=== PATIENT | female | born 1945 | race Caucasian/White ===

== ENCOUNTER 2025-03-22 17:10 | Emergency (ER) | payer MEDICARE, SELFPAY ==
[2025-03-22] VITALS (32 sets, daily range): BP systolic 110–152; BP diastolic 62–117; PULSE 80–145; RESP 12–31; TEMP 36.8; O2SAT 91–96
--- NOTE | ~2025-03-22 | XR_ITS ---
CHEST RADIOGRAPH CLINICAL HISTORY: shortness of breath . COMPARISON: None available TECHNIQUE: Single portable view of the chest. FINDINGS The cardiomediastinal silhouette is enlarged. The lungs are clear. IMPRESSION: No focal infiltrate or effusion. Reviewed, dictated and finalized at location A.
--- NOTE | ~2025-03-22 | CT_ITS ---
History: Headache and left upper extremity paresthesias PROCEDURE: CT head without contrast. COMPARISON: None TECHNIQUE: Axial imaging of the head performed from the skull base to the vertex without IV contrast. Sagittal a nd coronal reformations obtained. DLP: 605 mGy-cm FINDINGS: The ventricles are enlarged. The dilatation of the ventricles is proportional to the degree of sulcal prominence, not uncommon in the senescent brain. Decreased attenuation is identified within the periventricular white matter, likely secondary to micr ovascular ischemic disease, in a patient of this age. There is no mass, mass effect or midline shift. There is no abnormal extra-axial fluid collection or intracranial hemorrhage. Visualized paranasal sinuses are clear. The mastoid air cells are well aerated. No acute displaced fractures within the overlying cranium. Impression: No acute intracranial hemorrhage or suspicious mass effect. Reviewed, dictated and finalized at location A. Impression: No acute intracranial hemorrhage or suspicious mass effect.
--- NOTE | 2025-03-22 17:22 | ECG_ITS ---
Test Date: 2025-03-22 17:26:24 Measurements Intervals [place] Rate: 130 P: 0 ME: 0 QRS: 53 QRSD: 94 T: 17 QT: 302 QTc: 445 Interpretive Statements ATRIAL FIBRILLATION WITH RAPID VENTRICULAR RESPONSE INCOMPLETE RIGHT BUNDLE BRANCH BLOCK MINIMAL Q WAVES- ANTEROLATERAL LEADS BASELINE ARTIFACT- III, V1-V2 ABNORMAL ECG No previous ECG available for comparison Electronically Signed On 03-22-2025 20:26:07 CDT by Hermilo Catalan D.O.
--- NOTE | 2025-03-22 17:46 | ED_ITS ---
HPI - General Adult General Chief complaint: Weakness Stated complaint: arm weakness Time Seen by Provider: 03/22/25 17:46 Source: patient Mode of arrival: ambulatory Limitations: no limitations History of Present Illness HPI narrative: 80-year-old female With a history of hypertension and dyslipidemia presents to the ED with a 1 day history of -- right forearm and hand pain with weakness which started after she moved her yd. no focal new motor or sensory deficit noted. -- transient slurred speech yesterday. this was not noted today. -- On presentation to the ED the patient was noted to have atrial fibrillation with a ventricular rate of 138 and a blood pressure of 145/118. No chest pain or shortness of breath no lightheadedness or dizziness. patient had right arm weakness/ numbness and difficulty writing. This happen yesterday evening with spontaneous resolution. Onset (ago): day(s) ( One day) Location: right and upper extremity Radiation: non-radiation Severity: mild Pain Consistency: constant Relieving factors: none Exacerbating factors: none Associated symptoms: denies other symptoms, weakness and other ( Right arm weakness / numbness with slurred speech) Treatments prior to arrival: none Related Data Allergies Allergy/AdvReac Type Severity Reaction Status Date / Time Penicillins Allergy Mild Rash Verified 03/22/25 17:25 Review of Systems 2 Review of Systems: All systems reviewed & are unremarkable except as noted in HPI and below Constitutional: Constitutional: Reports as per HPI and Reports no additional constitutional complaints Eyes: Eyes: Reports as per HPI and Reports no additional eye complaints ENT: Reports system reviewed and no additional complaints, except as documented and Reports as per HPI Cardiovascular: Cardiovascular: Reports as per HPI and Reports no additional cardiovascular complaints Respiratory: Respiratory: Reports as per HPI and Reports no additional respiratory complaints Gastrointestinal: Gastrointestinal: Reports as per HPI and Reports no additional gastrointestinal complaints Genitourinary: Genitourinary: Reports no additional female genitourinary complaints and Reports as per HPI Musculoskeletal: Musculoskeletal: Reports no additional musculoskeletal complaints and Reports as per HPI Comments: right forearm and hand pain Integumentary/Breasts: Skin/Breast: Reports system reviewed and no additional complaints, except as docu and Reports as per HPI Neurologic: Reports system reviewed and no additional complaints, except as documented and Reports as per HPI Psychiatric: Psychiatric: Reports no additional psychiatric complaints and Reports as per HPI Endocrine: Endocrine: Reports no additional endocrine complaints and Reports as per HPI Hematologic/Lymphatic: Hematologic/Lymphatic: Reports no additional hematologic/lymphatic complaints and Reports as per HPI Allergic/Immunologic: Allergic/Immunologic: Reports no additional allergic/immunologic complaints and Reports as per HPI [facility] Past Medical History Medical History (Updated 03/22/25 @ 19:54 by Manas García MD) Dyslipidemia Hypertension Social History Social History (Updated 03/22/25 @ 18:03 by Manas García MD) Social History: nonsmoker, nonalcoholic no drug use. Exam 2 Narrative: blood pressure is 152/98 with a heart rate of 134. Oxygen saturation of 95% on room Const: General: no acute distress Nutritional Appearance: well nourished Orientation/consciousness: patient oriented x3 Limitations: no limitations HENMT: Head: normal to inspection Ears: external ears normal F nelly/Nose/Sinus: Normal external nose present Face and sinus: normal facial exam Mouth: Yes Normal oral and palatal mucosa present Throat: posterior oropharynx normal Eyes: Conjunctivae: conjunctivae normal Pupils: Equal, round and reactive pupils present EOM: EOMs intact bilaterally Direct Ophthalmoscopy: no photophobia Neck: Neck: normal visual inspection, no lymphadenopathy and no meningeal signs Chest: Chest palpation & inspection: normal inspection of the chest Resp: Effort & Inspection: normal respiratory effort Auscultation: clear to auscultation bilaterally Cardio: Rate: tachycardic Rhythm: abnormal rhythm Other: Irregularly irregular rhythm with a heart rate of 140. No gallop or murmur apprecia GI: Auscultation: normal bowel sounds Other: No tenderness/ rigidity /rebound. : General: Yes no CVA tenderness Back/Spine/Pelvis: Back: no CVA tenderness Skin: General skin exam: normal color Other: Erythematous rash on her upper back Neuro: General: patient oriented x3, moves all extremities, no meningeal signs, no focal motor deficits and CN's II-XI intact bilaterally Cranial nerves: Yes Nystagmus not present Speech: normal speech Gait exam (Neuro): Normal gait present Other: NIHSS 0 Extrem: General: normal to inspection Psych: Mental Status: mental status grossly normal Affect: normal affect Attitude: cooperative Course Course Emergency Course: non-STEMI -- patient received aspirin and was started on heparin AFib with rapid ventricular rate- received 5 mg of metoprolol decrease in blood pressure to 90/44. Patient continues to have a rapid ventricular rate for which the patient has been started on amiodarone transient episode of slurred speech and right hand pain/ weakness which resolved spontaneously-- TIA Vital Signs Vital signs: Vital Signs Temperature 36.8 C 03/22/25 17:10 Pulse Rate 134 H 03/22/25 17:10 Respiratory Rate 16 03/22/25 17:10 Blood Pressure 152/98 H 03/22/25 17:10 Pulse Oximetry 95 03/22/25 17:10 Oxygen Delivery Room Air 03/22/25 17:10 Temperature 36.8 C 03/22/25 17:10 Pulse Rate 83 03/22/25 20:16 Respiratory Rate 22 H 03/22/25 20:16 Blood Pressure 122/62 03/22/25 20:16 Pulse Oximetry 96 03/22/25 19:15 Oxygen Delivery Room Air 03/22/25 19:15 Medical Decision Making MDM Narrative Medical decision making narrative: non-STEMI AFib with rapid ventricular rate CVA/TIA Differential Diagnosis Differential Diagnosis: VA, CVA Medical Records Medical records reviewed: Yes I reviewed the external patient's medical records. Vital Signs Vital Signs: Vital Signs Temperature 36.8 C 03/22/25 17:10 Pulse Rate 134 H 03/22/25 17:10 Respiratory Rate 16 03/22/25 17:10 Blood Pressure 152/98 H 03/22/25 17:10 Pulse Oximetry 95 03/22/25 17:10 Oxygen Delivery Room Air 03/22/25 17:10 Temperature 36.8 C 03/22/25 17:10 Pulse Rate 83 03/22/25 20:16 Respiratory Rate 22 H 03/22/25 20:16 Blood Pressure 122/62 03/22/25 20:16 Pulse Oximetry 96 03/22/25 19:15 Oxygen Delivery Room Air 03/22/25 19:15 Lab Data 03/22/25 18:18 03/22/25 18:18 Labs: Lab Results 03/22/25 03/22/25 Range/Units 18:18 19:09 WBC 10.9 H (4.8-10.8) K/mm3 RBC 4.43 (4.20-5.40) M/mm3 Hgb 13.4 (11.7-13.8) g/dL Hct 40.9 (35.0-42.0) % MCV 92.3 (78.0-102.0) fL MCH 30.2 (27.0-31.0) pg MCHC 32.8 (32-36) g/dL RDW 13.3 (11.6-14.4) % Plt Count 296 (150-420) K/mm3 MPV 10.5 (9.2-11.8) fl Immature Gran % (Auto) 0.5 H (0.0-0.0) % Neut % (Auto) 69.7 (50.0-70.0) % Lymph % (Auto) 17.3 L (18.0-42.0) % [place] % (Auto) 9.5 (2.0-11.0) % Eos % (Auto) 2.5 (1.0-6.0) % Baso % (Auto) 0.5 (0.0-1.0) % Lymph # (Auto) 1.89 (1.10-4.50) K/mm3 [place] # (Auto) 1.04 H (0.10-0.90) K/mm3 Eos # (Auto) 0.27 (0.02-0.50) K/mm3 Baso # (Auto) 0.06 (0.00-0.10) K/mm3 Abs Immat Gran (auto) 0.05 H (0.00-0.00) K/mm3 Absolute Neuts (auto) 7.63 H (1.70-7.20) K/mm3 Absolute Nucleated RBC 0.00 (0.00-0.00) K/mm3 Nucleated RBC % 0.0 (0-0.0) % PT 10.9 (9.50-12.1) Seconds INR 1.0 APTT 28.6 (23.9-30.70) Sec Sodium 140 (136-145) mmol/L Potassium 3.5 (3.5-5.1) mmol/L Chloride 102 (98-108) mmol/L Carbon Dioxide 28 (21-32) mmol/L Anion Gap 10 (4-12) mmol/L BUN 22 H (7-18) mg/dL Creatinine 0.85 (0.55-1.02) mg/dL Estim Creat Clear Calc 39 ml/min Estimated GFR > 60 (59 - ) Glucose 99 (70-99) mg/dL Calculated Osmolality 293 (285-295) mOsm/kg Lactic Acid 1.0 (0.4-2.0) mmol/L Calcium 9.2 (8.5-10.1) mg/dL Total Bilirubin 0.8 (0.00-1.00) mg/dL AST 47 H (15-37) U/L ALT 60 H (14-59) U/L Alkaline Phosphatase 120 H (46-116) U/L Troponin I 3101.3 H* (0.00-60.4) ng/L NT-Pro-B Natriuret Pep 3187 H (0-450) pg/mL Total Protein 7.5 (6.4-8.2) g/dL Albumin 3.3 L (3.4-5.0) g/dL Lipase 21 (16-77) U/L TSH 0.80 (0.36-3.74) uIU/mL Urine Color Light yellow (Yellow) Urine Appearance Clear (Clear) Urine pH 5.5 (5.0-8.0) Ur Specific [place] 1.010 (1.010-1.020) Urine Protein Negative (Negative) Urine Glucose (UA) Negative (Negative) Urine Ketones 1+ H (Negative) Ur Blood (Man) Trace-intact H (Negative) Urine Nitrate Negative (Negative) Urine Bilirubin Negative (Negative) Urine Urobilinogen 0.2 (0.2-1.0) mg/dL Leukocyte Esterase Rfl 2+ H (Negative) ITZEL/UL Urine RBC 0-2 (0-2) /hpf Urine WBC 4-6 H (0-3) /hpf Ur Squamous Epith Cells Few (Few) /hpf Urine Bacteria Trace (None) /hpf Monoscreen Negative (Negative) Influenza A (RT-PCR) Negative (Negative) Influenza B (RT-PCR) Negative (Negative) RSV (RT-PCR) Negative (Negative) SARS-CoV-2 RNA (RT-PCR) Negative (Negative) ECG Data EKG #1: ECG completion date: 03/22/25 ECG completion time: 17:26 Interpretation: atrial fibrillation with a rapid ventricular rate of 130. Normal axis. Incomplete right bundle-branch block pattern. No ST elevation noted. ST depression anteroseptal Discharge Plan Discharge Clinical Impression: Non-ST elevated myocardial infarction (non-STEMI), Atrial fibrillation with rapid ventricular response, Stroke or transient ischemic attack (TIA) diagnosed during current admission Patient Disposition: Still a Patient Condition: Stable Additional Instructions: transfer patient to [address] Patient has been accepted by Dr. Grey Patient Language: Sinhala Follow-up/Referrals: Linda Rios APRN [Primary Care Provider] - Time of Disposition: 20:30 Quality Stroke Scale Stroke Scale 1: Dictation/Comment: last known well yesterday Stroke scale date:: 03/22/25 Stroke scale time:: 18:05 1a Level of consciousness: alert-0 1b Level of consciousness questions: answers both correctly-0 1c Level of consciousness commands: obeys both correctly-0 2 Best gaze: normal-0 3 Visual: no visual loss-0 4 Facial palsy: normal-0 5a Motor: left arm: no drift-0 5b Motor: right arm: no drift-0 6a Motor: left leg: no drift-0 6b Motor: right leg: no drift-0 7 Limb ataxia: absent-0 8 Sensory: normal-0 9 Best language: no aphasia-0 10 Dysarthria: normal-0 11 Extinction and inattention: no abnormality-0 Level:: 0
--- OUTSIDE RECORDS SUMMARY | 2025-03-22 17:47 | XMS_ITS | Clinical Summary ---
Author Organization [facility] Address [address] [place] [address] Care Team Providers Care Business Continuity Consultant Name Role Phone Salvador Ramírez MD Primary Care Provider Allergies Active Allergy Reactions Criticality Noted Date Comments Penicillins Hives 12/17/2022 Medications metoprolol succinate ER (TOPROL-XL) 50 MG 24 hr tablet Take 75 mg by mouth daily. 07/24/2022 Active pravastatin (PRAVACHOL) 80 MG tablet Take 80 mg by mouth daily. 09/01/2022 Active multi vitamin/minerals (THERA-M ENHANCED) tablet Take 1 tablet by mouth daily. Active Active Problems No known active problems Family History Medical History Relation Comments Breast Cancer Sister in her 60's Relation Status Comments Sister Social History Tobacco Use Types Packs/Day Years Used Date Smoking Tobacco: Never Smokeless Tobacco: Never Tobacco Cessation:Counseling Given: Not Answered Alcohol Use Standard Drinks/Week Comments Not Currently 0 (1 standard drink = 0.6 oz pur e alcohol) PHQ-2 Answer Date Recorded PHQ-2 Score - If the patient scores above 3, please move on to questions 3-9 0 06/19/2022 Comments No Sex and Gender Information Value Date Recorded Sex Assigned at Not on file Legal Sex Female 5:53 PM LITIGATION LEGAL ASSISTANT Gender Identity Not on file Sexual Orientation Not on file Last Filed Vital Signs Vital Sign Reading Time Taken Comments Blood Pressure 191/79 01/14/2023 2:58 PM LITIGATION LEGAL ASSISTANT Anesthesia aware and cleared to go home. Pulse 81 01/14/2023 2:58 PM LITIGATION LEGAL ASSISTANT Temperature 35.9 C (96.7 F) 01/14/2023 2:58 PM LITIGATION LEGAL ASSISTANT Respiratory Rate 16 01/14/2023 2:58 PM LITIGATION LEGAL ASSISTANT Oxygen Saturation 95% 01/14/2023 2:5 8 PM LITIGATION LEGAL ASSISTANT Inhaled Oxygen Concentration - - Weight 61.2 kg (135 lb) 01/08/2023 12:2 3 PM LITIGATION LEGAL ASSISTANT Height 154.9 cm (5' 1 ) 01/08/2023 12:2 3 PM LITIGATION LEGAL ASSISTANT Body Mass Index 25.51 01/08/2023 12:23 PM LITIGATION LEGAL ASSISTANT Plan of Treatment Health Maintenance Due Date Last Done Comments Hepatitis C 1965 DTaP, Tdap and Td Vaccines ( 1 - Tdap) 1966 Zoster Vaccines (1 of 2) 1997 Annual Medicare Wellness Visit 2012 RSV Immunization or 60+ Years (1 - 1-dose 75+ series) 2022 COVID-19 Vaccine (2023-2 5 season) 2024 09/26/2021, 03/11/2021, 02/10/2021 Pneumococcal Vaccine: 50+ Years Completed 12/16/2021, 11/26/2020 Dexa Scan (General) Completed 08/31/2023, 06/19/2021 Meningococcal B Vaccine Aged Out No l onger eligible based on patient's age to complete this topic Meningococcal Vaccine Aged Out No lisa tanya eligible based on patient's age to complete this topic RSV Immunizations Under 20 Months Aged Out No longer eligible b ased on patient's age to complete this topic Medical Devices Implanted Type Area [employer] Work[employer] Device Identifier Shelf Expiration Date Model / Serial / Lot Iol Tecalberto Simplicity Dcb00 - [id number] Implanted:Qty: 1 on 01/14/2023 by Geetha Ahmadi MD at [facility] Lens Right: Eye [employer] [id number] 11/05/2025 DCB00 / [id number] / [id number] Left Eye Implant Lens Implanted:Qty: 1 on 12/17/2022 by Geetha Ahmadi MD at [facility] Left: Eye 09/30/2025 DCB00 / / [id number] Procedures Procedure Name Priority Date/Time Associated Diagnosis Comments BONE DENSITY/DEXA Routine 08/31/2023 2:5 1 PM CDT Post-menopausal from Last 3 Months or Most Recently Relevant to Health Maintenance Results * BONE DENSITY/DEXA (08/31/2023 2:51 PM CDT) Anatomical Region Laterality Modality Bone Bone Density 09/05/2023 3:24 AM CDT Impressions 09/05/2023 3:28 AM CDT Impression: Osteopenia. 10 yr major fracture risk is 34% and hip fracture risk is 20%. Referred By: SALVADOR RAMÍREZ Interpreted By: Shayne Keller MD, 09/05/2023 3:24 AM Narrative 09/05/2023 3:28 AM CDT 08/31/2023 Examination: DEXA Bone densitometry Clinical history: Postmenopausal female here for bone density evaluation. Prior fracture. Patent with hip fracture. Treated for osteoporosis. Followup from 06/19/2021 Technique: DEXA bone minimal density evaluation was performed in the AP projection over the lumbar spine and over both hips in the AP projection utilizing standard imaging techniques. Assessment: The BMD measured at the AP spine L1-L4 is 1.04 g/cm2 with a T-score of -0.1 and a Z-Score of 2.4. There is a 4.2% change. This is statistically significant. The BMD measured at the femur neck left is 0.634 g/cm2 with a T-score of -1.9 and a Z-Score of 0.2. There is a -3.4% change. Dissimilar scan type or method prevent comparison to prior study. The BMD measured at the femur total right is 0.762 g/cm2 with a T-score of -1.5 and aZ-Score of 0.4. There is a -4.7% change. Dissimilar scan type or method prevent comparison to prior study. Recommendations: All patients should ensure an adequate intake of dietary calcium and vitamin D. The NOF recommend adults under the age of 50 need 1000 mg of calcium and 400-800 IU of vitamin D daily. Effective therapy for the prevention and treatment of osteoporosis include biphosphonates. Follow-up: People with diagnosed cases of osteoporosis or at high risk for fracture should have regular bone mineral density test. For patients eligible for Medicare, routine testing is allowed once every 2 years. Testing frequency can be increased to one year for patients who have rapidly progressing disease, those who are receiving or discontinuing medical therapy to restore bone mass, or have additional risk factors. Based on these results, a followup exam is recommended in August 2024 Procedure Note Shayne Keller MD - 09/05/2023 08/31/2023 Examination: DEXA Bone densitometry Clinical history: Postmenopausal female here for bone density evaluation.Prior fracture. Patent with hip fracture. Treated for osteoporosis.Followup from 06/19/2021 Technique: DEXA bone minimal density evaluation was performed in the APprojection over the lumbar spine and over both hips in the AP projectionutilizing standard imaging techniques. Assessment: The BMD measured at the AP spine L1-L4 is 1.04 g/cm2 with a T-score of-0.1 and a Z-Score of 2.4. There is a 4.2% change. This is statisticallysignificant. The BMD measured at the femur neck left is 0.634 g/cm2 with a T-score of-1.9 and a Z-Score of 0.2. There is a -3.4% change. Dissimilar scan typeor method prevent comparison to prior study. The BMD measured at the femur total right is 0.762 g/cm2 with a T-score of-1.5 and aZ-Score of 0.4. There is a -4.7% change. Dissimilar scan typeor method prevent comparison to prior study. Recommendations: All patients should ensure an adequate intake of dietary calcium andvitamin D. The NOF recommend adults under the age of 50 need 1000 mg ofcalcium and 400-800 IU of vitamin D daily. Effective therapy for theprevention and treatment of osteoporosis include biphosphonates. Follow-up: People with diagnosed cases of osteoporosis or at high risk for fractureshould have regular bone mineral density test. For patients eligible forMedicare, routine testing is allowed once every 2 years. Testing frequencycan be increased to one year for patients who have rapidly progressingdisease, those who are receiving or discontinuing medical therapy torestore bone mass, or have additional risk factors. Based on these results, a followup exam is recommended in August 2024 Impression: Osteopenia. 10 yr major fracture risk is 34% and hip fracture risk is 20%. Referred By: SALVADOR RAMÍREZ Interpreted By: Shayne Keller MD, 09/05/2023 3:24 AM Salvador CLINEA Final Resul t from Last 3 Months or Most Recently Relevant to Health Maintenance Insurance MEDICARE [facility] Advance Directives * Full Code (Latest Code Status on File) Date Activated Date Inactivated Comments 01/14/2023 2:37 PM 01/14/2023 5:19 PM Care Teams Business Continuity Consultant Relationship Specialty Start Date End Date Salvador Ramírez MD [address] [place] [id number] PCP - General FAMILY PRACTICE 09/20/19
[2025-03-22] MEDS: METOPROLOL TARTRATE INJ 5 MG/5 ML VIAL IV PUSH (18:14)
[2025-03-22 18:22] LABS: Basophils Absolute Auto 0.06 K/mm3 (0.00-0.10); Basophils Percent Auto 0.5 % (0.0-1.0); Eosinophils Absolute Auto 0.27 K/mm3 (0.02-0.50); Eosinophils Percent Auto 2.5 % (1.0-6.0); Hematocrit 40.9 % (35.0-42.0); Hemoglobin 13.4 g/dL (11.7-13.8); Immature Granulocyte Absolute 0.05 K/mm3 (0.00-0.00); Immature Granulocyte Percent A 0.5 % (0.0-0.0); Lymphocytes Absolute Auto 1.89 K/mm3 (1.10-4.50); Lymphocytes Percent Auto 17.3 % (18.0-42.0); Mean Corpuscular HGB Conc 32.8 g/dL (32-36); Mean Corpuscular Hemoglobin 30.2 pg (27.0-31.0); Mean Corpuscular Volume 92.3 fL (78.0-102.0); Mean Platelet Volume 10.5 fl (9.2-11.8); Monocytes Absolute Auto 1.04 K/mm3 (0.10-0.90); Monocytes Percent Auto 9.5 % (2.0-11.0); Neutrophils Absolute Auto 7.63 K/mm3 (1.70-7.20); Neutrophils Percent Auto 69.7 % (50.0-70.0); Platelet Count Result 296 K/mm3 (150-420); Red Blood Count 4.43 M/mm3 (4.20-5.40); Red Cell Distribution Width 13.3 % (11.6-14.4); White Blood Count 10.9 K/mm3 (4.8-10.8)
[2025-03-22 18:33] LABS: Monoscreen Negative (Negative); Negative Monotest Control Negative (Negative); Positive Monotest Control Positive (Positive)
[2025-03-22 18:36] LABS: Partial Thromboplastin Time 28.6 Sec (23.9-30.70); Prothrombin Time 10.9 Seconds (9.50-12.1)
[2025-03-22 18:48] LABS: Alanine Aminotransferase 60 U/L (14-59); Albumin Level 3.3 g/dL (3.4-5.0); Alkaline Phosphatase 120 U/L (46-116); Anion Gap 10 mmol/L (4-12); Aspartate Amino Transferase 47 U/L (15-37); Bilirubin,Total 0.8 mg/dL (0.00-1.00); Blood Urea Nitrogen 22 mg/dL (7-18); Calcium 9.2 mg/dL (8.5-10.1); Carbon Dioxide 28 mmol/L (21-32); Chloride 102 mmol/L (98-108); Estimated CRCL calculation 39 ml/min; Estimated Glomerular Filt Rate > 60; Glucose 99 mg/dL (70-99); NT Pro B Type Natriuretic Pept 3187 pg/mL (0-450); Osmolality Calculated 293 mOsm/kg (285-295); Potassium 3.5 mmol/L (3.5-5.1); Sodium 140 mmol/L (136-145); Total Protein 7.5 g/dL (6.4-8.2)
[2025-03-22 18:49] LABS: Lipase 21 U/L (16-77); Troponin I 3101.3 ng/L (0.00-60.4)
[2025-03-22 18:57] LABS: Influenza A QL RT-PCR Negative (Negative); Influenza B QL RT-PCR Negative (Negative); RSV RNA, RT-PCR Negative (Negative); SARS-CoV-2 RNA PCR Negative (Negative)
[2025-03-22 19:19] LABS: Add Urine Microscopic? YES; Appearance Urine Clear (Clear); Bilirubin Urine Negative (Negative); Blood Urine Trace-intact (Negative); Color Urine Light Yellow (Yellow); Glucose Urine UA Negative (Negative); Ketones Urine 1+ (Negative); Leukocyte Esterase Ur 2+ LEU/UL (Negative); Nitrate Urine Negative (Negative); Protein Urine Negative (Negative); Urobilinogen Urine 0.2 mg/dL (0.2-1.0); pH Urine 5.5 (5.0-8.0)
[2025-03-22 19:26] LABS: Bacteria Urine Trace /hpf; RBC Urine 0-2 /hpf (0-2); Squamous Epithelial Cell Urine Few /hpf (Few)
[2025-03-22] MEDS: ASPIRIN 81 MG CHEWABLE TABLET 324 MG PO (19:35)
[2025-03-22] MEDS: HEPARIN SODIUM 5,000 UNITS/ML VIAL 3000 UNITS IV PUSH (19:37)
[2025-03-22] MEDS: HEPARIN SOD/D5W 100 UNITS/ML 25,000 UNITS/250 ML BAG 6 UNITS IV CONT (19:38)
[2025-03-22] MEDS: AMIODARONE 150 MG/D5W 100 ML 150 MG/100 ML BAG 600 MG IV CONT (19:45)
--- NOTE | 2025-03-25 17:25 | PC.NURSE ---
Final urine culture report; no growth. no further action or treatment needed.
== END 2025-03-22 21:22 | disposition short-term general hospital (02) ==
PROVIDERS: Emergency Provider Internal Medicine Critical Care Medicine; PCP Nurse Practitioner Family
DX: I21.4 Non-ST elevation (NSTEMI) myocardial infarction (principal); I48.20 Chronic atrial fibrillation, unspecified; I63.9 Cerebral infarction, unspecified; I10 Essential (primary) hypertension; E78.5 Hyperlipidemia, unspecified; Z20.822 Contact with and (suspected) exposure to COVID-19
CPT/HCPCS: 36415; 70450; 71045; 80053; 81001; 83605; 83690; 83880; 84443; 84484; 85025; 85610; 85730; 86308; 87086; 87637; 93005; 96365; 96375; 99285; A9270; J0282; J1644

== ENCOUNTER 2025-03-27 11:41 | Outpatient (CLI) | payer MEDICARE, SELFPAY ==
--- NOTE | 2025-03-27 11:50 | ECG_ITS ---
Test Date: 2025-03-27 12:01:50 Measurements Intervals [place] Rate: 117 P: 0 OR: 0 QRS: 50 QRSD: 86 T: -8 QT: 308 QTc: 430 Interpretive Statements ATRIAL FIBRILLATION WITH RAPID VENTRICULAR RESPONSE POSSIBLE RIGHT VENTRICULAR CONDUCTION DELAY CONSIDER INFERIOR INFARCT, AGE INDETERMINATE NONSPECIFIC ST & T-WAVE ABNORMALITY- ANT/INF LEADS ABNORMAL ECG Compared to ECG 03/22/2025 17:26:24 HEART RATE HAS DECREASED Electronically Signed On 03-27-2025 11:58:46 CDT by Hermilo Catalan D.O.
--- OUTSIDE RECORDS SUMMARY | 2025-03-27 13:41 | XMS_ITS | Clinical Summary ---
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 Active metoprolol succinate ER (TOPROL-XL) 100 MG 24 hr tablet Take 1 tablet (100 mg total) by mouth 2 (two) times daily for 30 days. 60 tablet 03/25/20 025 Active atorvastatin (LIPITOR) 80 MG tabletIndicatio ns:Cerebrovascu lar accident (CVA), unspecified mechanism (CMS/HCC HHS/HCC) Take 1 tablet (80 mg total) by mouth nightly at bedtime. 30 tablet 03/25/20 25 Active enoxaparin (LOVENOX) 60 MG/0.6ML Solution Prefilled Syringe Inject 0.6 mLs (60 mg total) into the skin every 12 (twelve) hours for 3 days. 3.6 mL 03/25/20 25 025 Active nitroglycerin (NITROSTAT) 0.[address] 1 tablet (0.4 mg total) under the tongue every 5 (five) minutes as needed for Chest Pain. 30 tablet 03/25/20 25 Active warfarin (COUMADIN) 2 MG tablet Take 1.5 tablets (3 mg total) by mouth daily for 14 days. Take 1.5 tablets (3 mg total) by mouth daily. 21 tablet 04/26/ Active metoprolol succinate ER (TOPROL-XL) 50 MG 24 hr tablet Take 1.5 tablets (75 mg total) by mouth daily. 07/24/20 Discontinued(St op Taking at Discharge) pravastatin (PRAVACHOL) 80 MG tablet Take 1 tablet (80 mg total) by mouth daily. 09/01/20 025 Discontinued(St op Taking at Discharge) nitroglycerin (NITROSTAT) 0.[address] 1 tablet (0.4 mg total) under the tongue every 5 (five) minutes as needed for Chest Pain. 30 tablet 03/25/20 Discontinued atorvastatin (LIPITOR) 80 MG tabletIndicatio ns:Cerebrovascu lar accident (CVA), unspecified mechanism ([facility] HHS/[facility]) Take 1 tablet (80 mg total) by mouth nightly at bedtime. 30 tablet 03/25/20 Discontinued dabigatran (PRADAXA) 75 MG Cap Take 1 capsule (75 mg total) by mouth 2 (two) times daily. 60 capsule 2 03/24/20 Discontinued(St op Taking at Discharge) warfarin (COUMADIN) 2 MG tablet Take 1.5 tablets (3 mg total) by mouth daily. Take 1.5 tablets (3 mg total) by mouth daily. 45 tablet 03/25/20 025 Discontinued metoprolol succinate ER (TOPROL-XL) 100 MG 24 hr tablet Take 1 tablet (100 mg total) by mouth 2 (two) times daily for 30 days. 60 tablet 03/25/20 025 Discontinued enoxaparin (LOVENOX) 60 MG/0.6ML Solution Prefilled Syringe Inject 0.6 mLs (60 mg total) into the skin every 12 (twelve) hours for 3 days. 3.6 mL 03/25/20 025 Discontinued Active Problems Problem Noted Date Diagnosed Date A-fib ([facility] HHS/[facility]) 03/22/2025 Encounters Date Type Department Care Team Description 03/22/2025 10:20 PM CDT - 03/25/2025 1:19 PM CDT Hospital Encounter [facility] [place] [address] Mary Beth Grey MD Elayyan, MD Andrez Burt, MD Denzel Urbano, Darell Bassett MD Discharge Disposition: Home or Self Care (Routine Discharge) 03/22/2025 Travel from Last 3 Months Family History Medical History Relation Comments Breast Cancer Sister in her 60's Relation Status Comments Sister Social History Tobacco Use Types Packs/Day Years Used Date Smoking Tobacco: Never Smokeless Tobacco: Never Tobacco Cessation:Counseling Given: Not Answered Alcohol Use Standard Drinks/Week Comments Not Currently 0 (1 standard drink = 0.6 oz pur e alcohol) [facility] Utilities Answer Date Recorded In the past 12 months has e electric, gas, oil, or water [employer] threatened to shut off services in your home? No 03/22/2025 Humiliation, Afraid, Rape, and Kick questionnair e Answer Date Recorded Within the last year, have y ou been afraid of your partner or ex-partner? No 03/22/2025 Within the last year, have y ou been humiliated or emotionally abused in other ways by your partner or ex-partner? No Within the last year, have y ou been kicked, hit, slapped, or otherwise physically hurt by your partner or ex-partner? No 03/22/2025 Within the last year, have y ou been raped or forced to have any kind of sexual activity by your partner or ex-partner? No 03/22/2025 Overall Financial Resource Strain (CARDIA) Answe r Date Recorded How hard is it for you to pa y for the very basics like food, housing, medical care, and heating? Not hard at all 03/22/2025 PHQ-2 Answer Date Recorded PHQ-2 Score - If the patient scores above 3, please move on to questions 3-9 0 06/19/2022 Hunger Vital Sign Answer Date Recorded Within the past 12 months, y ou worried that your food would run out before you got the money to buy more. Never true 03/22/20 25 Within the past 12 months, t he food you bought just didn't last and you didn't have money to get more. Never true 03/22/2025 PRAPARE - Transportation Answer Date Re corded In the past 12 months, has l ack of transportation kept you from medical appointments or from getting medications? No 03/01 In the past 12 months, has l ack of transportation kept you from meetings, work, or from getting things needed for daily living? No 03/22/2025 Housing Stability Vital Sign Answer Mao e Recorded In the last 12 months, was t here a time when you were not able to pay the mortgage or rent on time? No 03/22/2025 In the past 12 months, how m any times have you moved where you were living? 0 03/22/2025 At any time in the past 12 m [facility], were you homeless or living in a senior living (including now)? 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 Sex Female 5:53 PM [employer] Gender Identity Female 03/22/2025 10:30 PM CDT Sexual Orientation Straight 03/22/2025 10 :30 PM CDT Last Filed Vital Signs Vital Sign Reading Time Taken Comments Blood Pressure 123/75 03/25/2025 7:27 AM CDT Pulse 67 03/25/2025 7:27 AM CDT Temperature 36.5 C (97.7 F) 03/25/2025 7:27 AM CDT Respiratory Rate 16 03/25/2025 7:27 AM CDT Oxygen Saturation 99% 03/25/2025 7:27 AM CDT Inhaled Oxygen Concentration - - Weight 59.5 kg (131 lb 2.8 oz) 03/25/2025 4:19 A M CDT Height 152.4 cm (5') 03/22/2025 10:42 PM CDT Body Mass Index 25.62 03/22/2025 10:42 PM CDT Plan of Treatment Health Maintenance Due Date Last Done Comments Hepatitis C 1965 DTaP, Tdap and Td Vaccines ( 1 - Tdap) 1966 Zoster Vaccines (1 of 2) 1997 Annual Medicare Wellness Visit 2012 RSV Immunization or 60+ Years (1 - 1-dose 75+ series) 2022 COVID-19 Vaccine (4 - 4-2 5 season) 2024 09/26/2021, 03/11/2021, 02/10/2021 Pneumococcal [...] this topic Medical Devices Implanted Type Area Vinegar Maker Device Identifier Shelf Expiration Date Model / Serial / Lot Iol [employer]ec[employer] Simplicity Dcb00 - [id number] Implanted:Qty: 1 on 01/14/2023 by Geetha Ahmadi MD at [facility] Lens Right: Eye [employer] [id number] 11/05/2025 DCB00 / [id number] / [id number] Left Eye Implant Lens Implanted:Qty: 1 on 12/17/2022 by Geetha Ahmadi MD at [facility] Left: Eye 09/30/2025 DCB00 / / [id number] Procedures Procedure Name Priority Date/Time Associated Diagnosis Comments PROTHROMBIN TIME, VENOUS Routine 03/25/2025 7:53 AM CDT CBC, AUTO, NO DIFF Routine 03/25/2025 7: 53 AM CDT BASIC METABOLIC PANEL Routine 03/25/2025 7:53 AM CDT POCT GLUCOSE - GUERRERO DOCKED DEVICE Routine 03/24/2025 10:54 AM CDT USV CAROTID DUPLEX EDWARD Today 9:10 AM CDT USE ECHOCARDIOGRAM Today 03/24/2025 9: 01 AM CDT POCT GLUCOSE - GUERRERO DOCKED DEVICE Routine 03/24/2025 7:33 AM CDT HEPARIN, ANTI XA, UFH TIMED 03/24/2025 7:05 AM CDT LIPID PANEL Routine 03/24/2025 7:05 AM CDT CBC, AUTO, NO DIFF Routine 03/24/2025 7: 05 AM CDT BASIC METABOLIC PANEL Routine 03/24/2025 7:05 AM CDT HEPARIN, ANTI XA, UFH TIMED 03/24/2025 2:02 AM CDT POCT ACTIVATED CLOTTING TIME - ISTAT DOCKED DEVICE Routine 03/23/2025 3:38 PM CDT XA LHC POSS Today 03/23/2025 3:19 PM CDT POCT ACTIVATED CLOTTING TIME - ISTAT DOCKED DEVICE Routine 03/23/2025 3:16 PM CDT HEPARIN, ANTI XA, UFH Routine 03/23/2025 2:04 PM CDT HEPARIN, ANTI XA, UFH TIMED 03/23/2025 11:51 AM CDT TROPONIN, QUANT TIMED 03/23/2025 11:51 AM CDT MRI BRAIN WO CON Today 03/23/2025 11:3 3 AM CDT HEPARIN, ANTI XA, UFH TIMED 03/23/2025 7:01 AM CDT LIPID PANEL Routine 03/23/2025 7:01 AM CDT TROPONIN, QUANT TIMED 03/23/2025 7:01 AM CDT BASIC METABOLIC PANEL Routine 03/23/2025 7:01 AM CDT CBC W/DIFF AUTOMATED Routine 03/23/2025 7:01 AM CDT THYROID STIM HORMONE TSH Routine 03/23/2025 7:01 AM CDT HEMOGLOBIN, GLYCOSYLATED Routine 03/23/2025 7:01 AM CDT MAGNESIUM Routine 03/23/2025 7:01 AM CDT PROTHROMBIN TIME, VENOUS Routine 03/23/2025 7:01 AM CDT HEPARIN, ANTI XA, UFH STAT 03/22/2025 11:15 PM CDT BONE DENSITY/DEXA Routine 08/31/2023 2:5 1 PM CDT Post-menopausal from Last 3 Months or Most Recently Relevant to Health Maintenance Results * (ABNORMAL) PROTIME/INR, VENOUS (03/25/2025 7:53 AM CDT) Only the most recent of2 resultswithin the time period is included. PROTIME 13.1(H) 10.2 - 12.9 SEC 03/25/2025 8:49 AM CDT [facility] INR 1.1 03/25/2025 8:49 AM CDT [facility] Comment: Recommended INR Therapeutic Goals: 2.0-3.0 Routine Therapy 2.5-3.5 Mechanical Prosthetic Valves (High Risk) 03/25/2025 7:53 AM CDT us Darell Mahoney MD LABORATORY Final Result [facility] [address] [place] [address], [place] [phone] * (ABNORMAL) BASIC METABOLIC PANEL (03/25/2025 7:53 AM CDT) Only the most recent of3 resultswithin the time period is included. GLUCOSE 83 70 - 99 MG/DL 03/25/2025 8:38 AM T [facility] BUN 13 7 - 18 MG/DL 03/25/2025 8:38 AM T [facility] CREATININE S/P/B 0.58 0.55 - 1.02 MG/DL 03/25/2025 8:38 AM T [facility] SODIUM S/P/B 141 136 - 145 MMOL/L 03/25/2025 8:38 AM T [facility] POTASSIUM S/P/B 3.8 3.5 - 5.1 MMOL/L 03/25/2025 8:38 AM T [facility] CHLORIDE S/P/B 108 97 - 115 MMOL/L 03/25/2025 8:38 AM T [facility] CO2 25.7 21 - 32 MMOL/L 03/25/2025 8:38 AM T [facility] CALCIUM S/P/B 8.0(L) 8.5 - 10.1 MG/DL 03/25/2025 8:38 AM T [facility] ANION GAP 7.3 2 - 10 MMOL/L 03/25/2025 8:38 AM [facility] BUN CREATININE RATIO 22.5 6 - 26 03/25/2025 8:38 AM T [facility] GFR ESTIMATE >90 >90 ML/MIN/1.7 3 M2 03/25/2025 8:38 AM T [facility] Comment: NOTE: eGFR is not calculated for patients <18 years of age or gender unknown. This is an estimated GFR calculation using the new CKD EPI creatinine equation without race and so does not require a correction factor for race. This estimated GFR should not be used for calculating drug doses. 03/25/2025 7:53 AM CDT us Gifty Mayfield MD LABORATORY Final Result [facility] [address] [place] [address], * CBC, AUTO, NO DIFF (03/25/2025 7:53 AM CDT) Only the most recent of2 resultswithin the time period is included. WBC 9.30 4.5 - 11.0 x10'3/uL 03/25/2025 8:30 AM CDT [facility] RBC 4.56 4.20 - 5.40 x10'6/uL 03/25/2025 8:30 AM CDT [facility] HGB 13.7 12.0 - 16.0 G/DL 03/25/2025 8:30 AM CDT [facility] HCT 42.2 38.0 - 48.0 % 03/25/2025 8:30 AM CDT [facility] MCV 92.5 81.0 - 99.0 FL 03/25/2025 8:30 AM CDT [facility] MCH 30.0 27.0 - 31.0 PG 03/25/2025 8:30 AM CDT [facility] MCHC 32.5 32.0 - 36.0 G/DL 03/25/2025 8:30 AM CDT [facility] RDW 13.6 11.5 - 14.5 % 03/25/2025 8:30 AM CDT [facility] PLT 308 130 - 400 x10'3/uL 03/25/2025 8:30 AM CDT [facility] MPV 11.1 9.3 - 12.2 FL 03/25/2025 8:30 AM CDT [facility] 03/25/2025 7:53 AM CDT Gifty Mayfield MD LABORATORY Final Result Performing Organization Address City/[facility]/ZIP Co de Phone Number [facility] [address] [place] [address], [place] [phone] * POCT glucose (03/24/2025 10:54 AM CDT) Only the most recent of2 resultswithin the time period is included. [facility] GLUCOSE POC 79 70 - 99 mg/dL 03/24/2025 12:30 PM CDT [facility] 03/24/2025 10:5 4 AM CDT Darell Mahoney MD POCT ORDERABLES - DEVICE Fin al Result Performing Organization Address City/[facility] Co de Phone Number [facility] [address] [place] [address], [place] [phone] * USV CAROTID DUPLEX DEWARD (03/24/2025 9:10 AM CDT) Anatomical Region Laterality Modality Neck Vascular Ultraso und 03/24/2025 8:47 AM CDT Narrative 03/24/2025 11:09 AM CDT CAROTID ARTERY DUPLEX [facility] Pat.Name: LEIF BRNACH MA Pat.ID: [id number] .Date: 03/24/2025 Refer.MD: Salvador Ivy Exam Time: 8:47:00 AM Study Type:EUN VS Duplex Carotid BI Height: 60 in Age: 2 1945,80Y Sex: F Sonogrphr: Terrell Paige RVT Procedures: Guajardo scale, Color Doppler imaging, Doppler Spectral Analysis Race: W ++++++++++++++++++++++++++++++++++++ SUMMARY: ++++++++++++++++++++++++++++++++++++ St E's Carotid Criteria 50-69% = PSV 180-230 and/or Ratio 2.0 - 4.0 >70% = PSV >230 and Ratio >4.0 or EDV >100 Stent Criteria >80% = PSV >339 and Ratio >4.0 The right subclavian artery is not assessed. The left subclavian artery is not assessed. Right side: The right bifurcation-internal carotid artery has heterogeneous plaque. Internal carotid maximum velocity is 65/19 cm/s, with a ratio of 1.26 . The common carotid artery has no plaque present. The external carotid artery has no plaque proximally. Vertebral artery flow is antegrade. No defined ulceration noted. Left side: The left bifurcation-internal carotid artery has heterogeneous plaque. Internal carotid maximum velocity is 102/26 cm/s , with a ratio of 1.45 . The common carotid artery has no plaque present. The external carotid artery has no plaque proximally. Vertebral artery flow is antegrade. No defined ulceration noted. CONCLUSION: Less than 50% stenosis in the internal carotid arteries. Antegrade flow in the bilateral vertebral arteries. ++++++++++++++++++++++++++++++++++++ MEASUREMENTS: ++++++++++++++++++++++++++++++++++++ DOPPLER Right Prox CCA Prox CCA PSV 92.5 cm/s Right Dist CCA Dist CCA PSV 53.9 cm/s Right Prox ICA Prox ICA PSV 36.7 cm/s Prox ICA EDV 6.7 cm/s Right Mid ICA Mid ICA PSV 65.2 cm/s Mid ICA EDV 19.9 cm/s Right Dist ICA Dist ICA PSV 68 cm/s Dist ICA EDV 23.2 cm/s Right Vertebral Vertebral PSV 98.8 cm/s Right ICA/CCA RATIO ICA/CCA RATIO P 1.26 Left Prox CCA Prox CCA PSV 121 cm/s Left Dist CCA Dist CCA PSV 70.3 cm/s Left Prox ICA Prox ICA PSV 62.8 cm/s Prox ICA EDV 15.9 cm/s Left Mid ICA Mid ICA PSV 102 cm/s Mid ICA EDV 26 cm/s Left Dist ICA Dist ICA PSV 87.6 cm/s Dist ICA EDV 26 cm/s Left Prox ECA Prox ECA PSV 57.9 cm/s Left Vertebral Vertebral PSV 89.6 cm/s Left ICA/CCA RATIO ICA/CCA RATIO P 1.45 <Electronic Signature> 03/24/2025 11:09 AM Alyce Allred M.D. Procedure Note Alyce Allred MD - 03/24/2025 CAROTID ARTERY DUPLEX IMAGING [facility]ASC[facility] LAB Pat.Name: LEIF BRANCH MARLEEN Pat.ID: [id number] .Date: 03/24/2025 Refer.MD: Salvador Ivy Exam Time: 8:47:00 AM Study Type:EUN VS Duplex Carotid BI Height: 60 in Age: 2 1945,80Y Sex: F Sonogrphr: Terrell Paige RVT Procedures: Guajardo scale, Color Doppler imaging, Doppler Spectral Analysis Race: W ++++++++++++++++++++++++++++++++++++ SUMMARY: ++++++++++++++++++++++++++++++++++++ St E's Carotid Criteria 50-69% = PSV 180-230 and/or Ratio 2.0 - 4.0 >70% = PSV >230 and Ratio >4.0 or EDV >100 Stent Criteria >80% = PSV >339 and Ratio >4.0 The right subclavian artery is not assessed. The left subclavian artery is not assessed. Right side: The right bifurcation-internal carotid artery has heterogeneous plaque. Internal carotid maximum velocity is 65/19 cm/s, with a ratio of 1.26 . The common carotid artery has no plaque present. The external carotid artery has no plaque proximally. Vertebral artery flow is antegrade. No defined ulceration noted. Left side: The left bifurcation-internal carotid artery has heterogeneous plaque. Internal carotid maximum velocity is 102/26 cm/s , with a ratio of 1.45 . The common carotid artery has no plaque present. The external carotid artery has no plaque proximally. Vertebral artery flow is antegrade. No defined ulceration noted. CONCLUSION: Less than 50% stenosis in the internal carotid arteries. Antegrade flow in the bilateral vertebral arteries. ++++++++++++++++++++++++++++++++++++ MEASUREMENTS: ++++++++++++++++++++++++++++++++++++ DOPPLER Right Prox CCA Prox CCA PSV 92.5 cm/s Right Dist CCA Dist CCA PSV 53.9 cm/s Right Prox ICA Prox ICA PSV 36.7 cm/s Prox ICA EDV 6.7 cm/s Right Mid ICA Mid ICA PSV 65.2 cm/s Mid ICA EDV 19.9 cm/s Right Dist ICA Dist ICA PSV 68 cm/s Dist ICA EDV 23.2 cm/s Right Vertebral Vertebral PSV 98.8 cm/s Right ICA/CCA RATIO ICA/CCA RATIO P 1.26 Left Prox CCA Prox CCA PSV 121 cm/s Left Dist CCA Dist CCA PSV 70.3 cm/s Left Prox ICA Prox ICA PSV 62.8 cm/s Prox ICA EDV 15.9 cm/s Left Mid ICA Mid ICA PSV 102 cm/s Mid ICA EDV 26 cm/s Left Dist ICA Dist ICA PSV 87.6 cm/s Dist ICA EDV 26 cm/s Left Prox ECA Prox ECA PSV 57.9 cm/s Left Vertebral Vertebral PSV 89.6 cm/s Left ICA/CCA RATIO ICA/CCA RATIO P 1.45 <Electronic Signature> 03/24/2025 11:09 AM Alyce Allred M.D. Emelia Soliman MD [facility] Final Re sult * USE ECHOCARDIOGRAM (03/24/2025 9:01 AM CDT) Anatomical Region Laterality Modality Cardiac Echocardiogram 03/24/2025 7:59 AM CDT Narrative 03/24/2025 12:31 PM CDT Echocardiography Report Pat.Name: LEIF BRANCH MA Pat.ID: [id number] St.Date: 03/24/2025 : [id number] PAXTON TAMEZ Jayme EWDPROV EWDPROV Exam Time: 7:59:00 AM Study Type:ECHO WITH CARDIAC DOPPLER COMP Height: 60 in Weight: 129 lb BSA: 1.55 m2 Age: 2 1945,80Y Sex: F BP: 140/88 HR: 96 bpm Sonogrphr: Daphnie Correa Pat. Stat.:Inpatient Room: [facility] Reason for Study:Atrial fibrillation / flutter Procedures: 2D, M-mode, Doppler, Color Flow, Intraveneous saline contrast was used to help determine presence of intracardiac shunting. The study quality is technically adequate. Race: W ++++++++++++++++++++++++++++++++++++ SUMMARY: ++++++++++++++++++++++++++++++++++++ Left ventricle is normal in size and systolic function Estimated EF of 60-65% Right ventricle is normal in size and systolic function Mild mitral regurgitation Moderate tricuspid regurgitation. Mild pulmonary hypertension. Negative bubble study ++++++++++++++++++++++++++++++++++++ FINDINGS: ++++++++++++++++++++++++++++++++++++ LV: The left ventricular size is normal. The left ventricular systolic function is normal. Estimated left ventricular ejection fraction is 60-65%. Moderate concentric left ventricular hypertrophy. Left ventricular diastolic function is not accessible due to atrial fibrillation. WM: Wall motion appears normal in all segments. RV: The right ventricular size is normal. Right ventricular systolic function is normal. IVS: No evidence of ventricular septal defect. LA: The left atrial size is moderately enlarged. The left atrial volume is moderately increased (42-48 ml/M2). RA: Right atrial size is normal. IAS: Atrial septum appears intact. The agitated saline injection showed no clear evidence of shunting into the left atrium, consistent with no patent foramen ovale. WALT: No evidence of pericardial effusion. AO: Normal aortic root. PA: The peak pulmonary artery systolic pressure is estimated to be approximately 34.8 mmHg. Estimated right atrial pressure of 3 mmHg. SVn: Inferior vena cava is normal. AV: The aortic valve is trileaflet. No evidence of aortic valve stenosis. No evidence of aortic valve regurgitation. MV: Structurally normal mitral valve. Mild mitral regurgitation. No evidence of mitral stenosis. PV: No evidence of pulmonic valve stenosis. No evidence of pulmonic regurgitation. Pulmonic valve not well visualized. TV: Structurally normal tricuspid valve. Moderate tricuspid regurgitation. No evidence of tricuspid valve stenosis. ++++++++++++++++++++++++++++++++++++ MEASUREMENTS: ++++++++++++++++++++++++++++++++++++ DOPPLER LVOT LVOTpkPG 4.81 mmHg LVOTmnPG 2.6 mmHg LVOTpkVel 110 cm/s (70-110)+ LVOT CO 7.64 l/min LVOT TVI 21.1 cm AV Forward Flow AV AC/ET 0.213 AV pkPG 6.99 mmHg AV mnPG 3.4 mmHg Area (TVI) 1.85 cm2 (3-5)* AV AT 59 msec (83-118)+* Area (Raffaele) 1.71 cm2 (3-5)* AV ET 276 msec MV Forward Flow MV DeTm 150 msec MV P1/2t 44 msec (30-60) MVA P1/2t 5.05 cm2 (4-6) MV pkE 119 cm/s (60-130)+ MV Regurg Flow MV TVI 153 cm MV pkPG 98.5 mmHg MV mnPG 68.5 mmHg MV pkVel 496 cm/s (60-130)+* TV Regurg Flow TV pkPG 29.7 mmHg TV pkVel 273 cm/s (30-70)+* TV Forward Flow TV pkE 51 cm/s Lat E' Lat e 10.7 cm/s Lat E/E' Lat E/e 11.2 Med E' Med e 6.6 cm/s Med E/E' Med E/e 18.1 Aortic Valve Mean Velocity 84.8 cm/s AV TVI 23.5 cm Peak Velocity 132 cm/s AV Continuity Equation by Peak Velocity Area 2.65 cm2 AV Continuity Equation by Velocity Time Integral Area 2.87 cm2 Left Ventricle Left Ventricula 147 mmHg Composite heart 113 bpm Mitral Valve Decel Liberty 800 cm/s2 HR 114 bpm Pulmonic Valve AC 102 millisecond Peak Velocity 94.1 cm/s PG pk 3.54 mmHg Tricuspid Valve HR 105 bpm TV Free Wall Sa 15.2 cm/s 2D Left Ventricle LV CI 1.27 l/m/m2 LV vol d MOD A4 2.49 cm LVIDd 2.63 cm (4.3-5.1)* LV vol d MOD A4 3.47 cm LVIDs 1.79 cm (2-4)* LV vol d MOD A4 3.31 cm LV%fs 32.1 % (25-46) LV vol d MOD A4 3.21 cm LV CI 3.55 l/m/m2 LV vol d MOD A4 3.01 cm LV CI 2.17 l/m/m2 LV vol d MOD A4 2.91 cm LV CO 5.49 l/min LV vol d MOD A4 2.69 cm LV CO 3.36 l/min LV vol d MOD A4 2.43 cm LV CO BP 4.29 l/min LV vol d MOD A4 2.17 cm LV SV 43.6 ml LV vol d MOD A4 1.78 cm LV SV 29.7 ml LV vol d MOD A4 1.2 cm LV SV BP 35.9 ml LV vol d MOD A4 0.646 cm Left Ventricle 7.31 cm LV vol d MOD A4 3.71 cm Left Ventricle 7.27 cm LV vol d MOD A4 3.84 cm LV Semi-major A 5.97 cm LV vol d MOD A4 3.76 cm Left Ventricle 6.75 cm LV vol d MOD A4 3.33 cm Left Ventricle 6.55 cm LV vol d MOD A4 3.05 cm Left Ventricle 6.75 cm LV vol d MOD A4 3.13 cm LV Trunc Semi-m 1.3 cm LV vol d MOD A4 3.25 cm LV Area harmon 25.1 cm2 LV vol d MOD A4 3.35 cm LV Area harmon 21.3 cm2 LV vol s MOD A2 2.22 cm LVA% 46.9 % LV vol s MOD A2 3.15 cm LVA% 43 % LV vol s MOD A2 1.99 cm LV Area sys 13.3 cm2 LV vol s MOD A2 1.93 cm LV Area sys 12.1 cm2 LV vol s MOD A2 1.84 cm LV EF 66.1 % LV vol s MOD A2 1.71 cm LV EF 59.6 % LV vol s MOD A2 1.56 cm LV EF BP 62.6 % LV vol s MOD A2 1.4 cm LV EDV 66 ml LV vol s MOD A2 1.18 cm LV EDV 49.8 ml LV vol s MOD A2 0.971 cm LVEDV BP 37 ml LV vol s MOD A2 0.659 cm LV ESV 22.4 ml LV vol s MOD A2 0.433 cm LV ESV 20.1 ml LV vol s MOD A2 3.08 cm LVESV BP 13.8 ml LV vol s MOD A2 2.89 cm LV Mass 0.621 g/cm LV vol s MOD A2 2.63 cm Composite heart 126 bpm LV vol s MOD A2 2.39 cm Composite heart 113 bpm LV vol s MOD A2 2.25 cm Composite heart 124 bpm LV vol s MOD A2 2.09 cm Composite heart 120 bpm LV vol s MOD A2 2.04 cm Composite heart 124 bpm LV vol s MOD A2 1.99 cm LV vol d MOD A2 2.63 cm LV vol s MOD A4 2.1 cm LV vol d MOD A2 3.37 cm LV vol s MOD A4 2.81 cm LV vol d MOD A2 3.67 cm LV vol s MOD A4 1.93 cm LV vol d MOD A2 3.58 cm LV vol s MOD A4 1.79 cm LV vol d MOD A2 3.44 cm LV vol s MOD A4 1.69 cm LV vol d MOD A2 3.29 cm LV vol s MOD A4 1.56 cm LV vol d MOD A2 3.05 cm LV vol s MOD A4 1.31 cm LV vol d MOD A2 2.85 cm LV vol s MOD A4 1.11 cm LV vol d MOD A2 2.6 cm LV vol s MOD A4 0.902 cm LV vol d MOD A2 2.39 cm LV vol s MOD A4 0.634 cm LV vol d MOD A2 1.78 cm LV vol s MOD A4 0.446 cm LV vol d MOD A2 1.07 cm LV vol s MOD A4 0.251 cm LV vol d MOD A2 4.03 cm LV vol s MOD A4 2.91 cm LV vol d MOD A2 4.19 cm LV vol s MOD A4 2.92 cm LV vol d MOD A2 4.19 cm LV vol s MOD A4 2.79 cm LV vol d MOD A2 4.11 cm LV vol s MOD A4 2.6 cm LV vol d MOD A2 4.04 cm LV vol s MOD A4 2.32 cm LV vol d MOD A2 3.94 cm LV vol s MOD A4 2.12 cm LV vol d MOD A2 3.81 cm LV vol s MOD A4 2 cm LV vol d MOD A2 3.74 cm LV vol s MOD A4 1.95 cm LVPW LVPWd 1.07 cm Left Atrium LA VOLBP 70.4 ml [place] (Sys 6.12 cm Mace Disk Nu 9 [place] (Sys 7.11 cm Ratios IVS Ventricular Septum IVSd 1.38 cm Aorta AO Ds 3.31 cm Ascending Aorti 2.71 cm LV Area-Length Biplane LVEDV 62 ml LVESV 20.3 ml LV Area-Length Single Plane LVEDV 73.1 ml LVESV 22.3 ml LVEDV 52.8 ml LVESV 19 ml LVOT LVOTArea 3.2 cm2 Cardiovascular 2.02 cm Right Atrium [place] (Sys 4.87 cm Mace Disk Nu 9 HR 111 bpm RA Area-Length Single Plane Volume (Systole 11.5 ml/m2 RA Single Plane RA sys Area 10.1 cm2 Volume (Systole 18.3 ml Right Ventricle [place] (Pili 5.8 cm Minor [place] (Pili 3.21 cm HR 91 bpm TA Cardiovascular 3.74 cm MMODE Left Ventricle Heart Rate-Marbella 439 millisecond Composite HR fo 102 bpm Composite heart 102 bpm RVOT PG pk 1.6 mmHg Peak Velocity 63.2 cm/s Tricuspid Valve Tricuspid annul 1.78 cm Vena Cava IVC Diam 1.4 cm <Electronic Signature> 03/24/2025 12:31 PM Cheng Bates M.D. Procedure Note Cheng Bates MD - 03/24/2025 Echocardiography Report Pat.Name: LEIF BRANCH MARLEEN Pat.ID: [id number] .Date: 03/24/2025 Sven.: [id number] PAXTON Delacruz EWDPROV EWDPROV Exam Time: 7:59:00 AM Study Type:ECHO WITH CARDIAC DOPPLER COMP Height: 60 in Weight: 129 lb BSA: 1.55 m2 Age: 2 1945,80Y Sex: F BP: 140/88 HR: 96 bpm Sonogrphr: Daphnie Correa Pat. Stat.:Inpatient Room: [facility] Reason for Study:Atrial fibrillation / flutter Procedures: 2D, M-mode, Doppler, Color Flow, Intraveneous saline contrast was used to help determine presence of intracardiac shunting. The study quality is technically adequate. Race: W ++++++++++++++++++++++++++++++++++++ SUMMARY: ++++++++++++++++++++++++++++++++++++ Left ventricle is normal in size and systolic function Estimated EF of 60-65% Right ventricle is normal in size and systolic function Mild mitral regurgitation Moderate tricuspid regurgitation. Mild pulmonary hypertension. Negative bubble study ++++++++++++++++++++++++++++++++++++ FINDINGS: ++++++++++++++++++++++++++++++++++++ LV: The left ventricular size is normal. The left ventricular systolic function is normal. Estimated left ventricular ejection fraction is 60-65%. Moderate concentric left ventricular hypertrophy. Left ventricular diastolic function is not accessible due to atrial fibrillation. WM: Wall motion appears normal in all segments. RV: The right ventricular size is normal. Right ventricular systolic function is normal. IVS: No evidence of ventricular septal defect. LA: The left atrial size is moderately enlarged. The left atrial volume is moderately increased (42-48 ml/M2). RA: Right atrial size is normal. IAS: Atrial septum appears intact. The agitated saline injection showed no clear evidence of shunting into the left atrium, consistent with no patent foramen ovale. WALT: No evidence of pericardial effusion. AO: Normal aortic root. PA: The peak pulmonary artery systolic pressure is estimated to be approximately 34.8 mmHg. Estimated right atrial pressure of 3 mmHg. SVn: Inferior vena cava is normal. AV: The aortic valve is trileaflet. No evidence of aortic valve stenosis. No evidence of aortic valve regurgitation. MV: Structurally normal mitral valve. Mild mitral regurgitation. No evidence of mitral stenosis. PV: No evidence of pulmonic valve stenosis. No evidence of pulmonic regurgitation. Pulmonic valve not well visualized. TV: Structurally normal tricuspid valve. Moderate tricuspid regurgitation. No evidence of tricuspid valve stenosis. ++++++++++++++++++++++++++++++++++++ MEASUREMENTS: ++++++++++++++++++++++++++++++++++++ DOPPLER LVOT LVOTpkPG 4.81 mmHg LVOTmnPG 2.6 mmHg LVOTpkVel 110 cm/s (70-110)+ LVOT CO 7.64 l/min LVOT TVI 21.1 cm AV Forward Flow AV AC/ET 0.213 AV pkPG 6.99 mmHg AV mnPG 3.4 mmHg Area (TVI) 1.85 cm2 (3-5)* AV AT 59 msec (83-118)+* Area (Raffaele) 1.71 cm2 (3-5)* AV ET 276 msec MV Forward Flow MV DeTm 150 msec MV P1/2t 44 msec (30-60) MVA P1/2t 5.05 cm2 (4-6) MV pkE 119 cm/s (60-130)+ MV Regurg Flow MV TVI 153 cm MV pkPG 98.5 mmHg MV mnPG 68.5 mmHg MV pkVel 496 cm/s (60-130)+* TV Regurg Flow TV pkPG 29.7 mmHg TV pkVel 273 cm/s (30-70)+* TV Forward Flow TV pkE 51 cm/s Lat E' Lat e 10.7 cm/s Lat E/E' Lat E/e 11.2 Med E' Med e 6.6 cm/s Med E/E' Med E/e 18.1 Aortic Valve Mean Velocity 84.8 cm/s AV TVI 23.5 cm Peak Velocity 132 cm/s AV Continuity Equation by Peak Velocity Area 2.65 cm2 AV Continuity Equation by Velocity Time Integral Area 2.87 cm2 Left Ventricle Left Ventricula 147 mmHg Composite heart 113 bpm Mitral Valve Decel Liberty 800 cm/s2 HR 114 bpm Pulmonic Valve AC 102 millisecond Peak Velocity 94.1 cm/s PG pk 3.54 mmHg Tricuspid Valve HR 105 bpm TV Free Wall Sa 15.2 cm/s 2D Left Ventricle LV CI 1.27 l/m/m2 LV vol d MOD A4 2.49 cm LVIDd 2.63 cm (4.3-5.1)* LV vol d MOD A4 3.47 cm LVIDs 1.79 cm (2-4)* LV vol d MOD A4 3.31 cm LV%fs 32.1 % (25-46) LV vol d MOD A4 3.21 cm LV CI 3.55 l/m/m2 LV vol d MOD A4 3.01 cm LV CI 2.17 l/m/m2 LV vol d MOD A4 2.91 cm LV CO 5.49 l/min LV vol d MOD A4 2.69 cm LV CO 3.36 l/min LV vol d MOD A4 2.43 cm LV CO BP 4.29 l/min LV vol d MOD A4 2.17 cm LV SV 43.6 ml LV vol d MOD A4 1.78 cm LV SV 29.7 ml LV vol d MOD A4 1.2 cm LV SV BP 35.9 ml LV vol d MOD A4 0.646 cm Left Ventricle 7.31 cm LV vol d MOD A4 3.71 cm Left Ventricle 7.27 cm LV vol d MOD A4 3.84 cm LV Semi-major A 5.97 cm LV vol d MOD A4 3.76 cm Left Ventricle 6.75 cm LV vol d MOD A4 3.33 cm Left Ventricle 6.55 cm LV vol d MOD A4 3.05 cm Left Ventricle 6.75 cm LV vol d MOD A4 3.13 cm LV Trunc Semi-m 1.3 cm LV vol d MOD A4 3.25 cm LV Area harmon 25.1 cm2 LV vol d MOD A4 3.35 cm LV Area harmon 21.3 cm2 LV vol s MOD A2 2.22 cm LVA% 46.9 % LV vol s MOD A2 3.15 cm LVA% 43 % LV vol s MOD A2 1.99 cm LV Area sys 13.3 cm2 LV vol s MOD A2 1.93 cm LV Area sys 12.1 cm2 LV vol s MOD A2 1.84 cm LV EF 66.1 % LV vol s MOD A2 1.71 cm LV EF 59.6 % LV vol s MOD A2 1.56 cm LV EF BP 62.6 % LV vol s MOD A2 1.4 cm LV EDV 66 ml LV vol s MOD A2 1.18 cm LV EDV 49.8 ml LV vol s MOD A2 0.971 cm LVEDV BP 37 ml LV vol s MOD A2 0.659 cm LV ESV 22.4 ml LV vol s MOD A2 0.433 cm LV ESV 20.1 ml LV vol s MOD A2 3.08 cm LVESV BP 13.8 ml LV vol s MOD A2 2.89 cm LV Mass 0.621 g/cm LV vol s MOD A2 2.63 cm Composite heart 126 bpm LV vol s MOD A2 2.39 cm Composite heart 113 bpm LV vol s MOD A2 2.25 cm Composite heart 124 bpm LV vol s MOD A2 2.09 cm Composite heart 120 bpm LV vol s MOD A2 2.04 cm Composite heart 124 bpm LV vol s MOD A2 1.99 cm LV vol d MOD A2 2.63 cm LV vol s MOD A4 2.1 cm LV vol d MOD A2 3.37 cm LV vol s MOD A4 2.81 cm LV vol d MOD A2 3.67 cm LV vol s MOD A4 1.93 cm LV vol d MOD A2 3.58 cm LV vol s MOD A4 1.79 cm LV vol d MOD A2 3.44 cm LV vol s MOD A4 1.69 cm LV vol d MOD A2 3.29 cm LV vol s MOD A4 1.56 cm LV vol d MOD A2 3.05 cm LV vol s MOD A4 1.31 cm LV vol d MOD A2 2.85 cm LV vol s MOD A4 1.11 cm LV vol d MOD A2 2.6 cm LV vol s MOD A4 0.902 cm LV vol d MOD A2 2.39 cm LV vol s MOD A4 0.634 cm LV vol d MOD A2 1.78 cm LV vol s MOD A4 0.446 cm LV vol d MOD A2 1.07 cm LV vol s MOD A4 0.251 cm LV vol d MOD A2 4.03 cm LV vol s MOD A4 2.91 cm LV vol d MOD A2 4.19 cm LV vol s MOD A4 2.92 cm LV vol d MOD A2 4.19 cm LV vol s MOD A4 2.79 cm LV vol d MOD A2 4.11 cm LV vol s MOD A4 2.6 cm LV vol d MOD A2 4.04 cm LV vol s MOD A4 2.32 cm LV vol d MOD A2 3.94 cm LV vol s MOD A4 2.12 cm LV vol d MOD A2 3.81 cm LV vol s MOD A4 2 cm LV vol d MOD A2 3.74 cm LV vol s MOD A4 1.95 cm LVPW LVPWd 1.07 cm Left Atrium LA VOLBP 70.4 ml [place] (Sys 6.12 cm Mace Disk Nu 9 [place] (Sys 7.11 cm Ratios IVS Ventricular Septum IVSd 1.38 cm Aorta AO Ds 3.31 cm Ascending Aorti 2.71 cm LV Area-Length Biplane LVEDV 62 ml LVESV 20.3 ml LV Area-Length Single Plane LVEDV 73.1 ml LVESV 22.3 ml LVEDV 52.8 ml LVESV 19 ml LVOT LVOTArea 3.2 cm2 Cardiovascular 2.02 cm Right Atrium [place] (Sys 4.87 cm Mace Disk Nu 9 HR 111 bpm RA Area-Length Single Plane Volume (Systole 11.5 ml/m2 RA Single Plane RA sys Area 10.1 cm2 Volume (Systole 18.3 ml Right Ventricle [place] (Pili 5.8 cm [place] (Pili 3.21 cm HR 91 bpm TA Cardiovascular 3.74 cm MMODE Left Ventricle Heart Rate-[place] 439 millisecond Composite HR fo 102 bpm Composite heart 102 bpm RVOT PG pk 1.6 mmHg Peak Velocity 63.2 cm/s Tricuspid Valve Tricuspid annul 1.78 cm Vena Cava IVC Diam 1.4 cm <Electronic Signature> 03/24/2025 12:31 PM Cheng Bates M.D. us Kevin Maguire MD ECHO Final R esult * (ABNORMAL) HEPARIN, ANTI XA, UFH (03/24/2025 7:05 AM CDT) Only the most recent of6 resultswithin the time period is included. HEPARIN ANTI XA UFH 0.78(H) 0.30 - 0.70 IU/ML 03/24/2025 8:34 AM CDT [facility] Comment: UFH Therapeutic Anti Xa Ranges: Medical Therapeutic Range: 0.30 - 0.70 IU/mL Cardiac Therapeutic Range: 0.30 - 0.50 IU/mL Neuro Therapeutic Range: 0.20 - 0.40 IU/mL 03/24/2025 7:05 AM CDT Kevin Maguire MD LABORATORY Final R esult [facility] [address] [place] [address], * (ABNORMAL) LIPID PANEL (03/24/2025 7:05 AM CDT) Only the most recent of2 resultswithin the time period is included. CHOLESTEROL 200(H) <200 MG/DL 03/24/2025 7:47 AM CDT [facility] TRIGLYCERIDES 111 <150 MG/DL 03/24/2025 7:47 AM CDT [facility] HDL 57 >40.0 MG/DL 03/24/2025 7:47 AM CDT [facility] LDL (CALCULATED) 121(H) <100 MG/DL 03/24/2025 7:47 AM T [facility] NON HDL CHOLESTEROL 143(H) <130 MG/DL 03/24/2025 7:47 AM T [facility] CHOL/HDL RATIO 3.5 0.0 - 4.5 03/24/2025 7:47 AM CDT [facility] VLDL CALCULATION 22 5 - 55 MG/DL 03/24/2025 7:47 AM T [facility] LIPID INTERPRETATION 03/24/2025 7:47 AM T [facility] Comment: [facility] REPORT RECOMMENDATIONS: ADULT CHILD LOW RISK: CHOLESTEROL <200 <170 TRIGLYCERIDE <150 --- HDL >=60 --- LDL <100 <110 BORDERLINE: CHOLESTEROL 200-239 170-199 TRIGLYCERIDE 150-199 --- HDL 40-59 --- LDL 100-159 110-129 HIGH RISK: CHOLESTEROL >=240 >=200 TRIGLYCERIDE >=200 --- HDL <40 --- LDL >=160 >=130 03/24/2025 7:05 AM CDT Gifty Mayfield MD LABORATORY Final Result Performing Organization Address [facility] de Phone Number [facility] [address] [place] [phone], * (ABNORMAL) POCT ACTIVATED CLOTTING TIME - ISTAT DOCKED DEVICE (03/23/2025 3:38 PM CDT) Only the most recent of2 resultswithin the time period is included. [facility] ACTIVATED CLOTTING TIME (ACT) 186(H) 74 - 125 SEC 03/24/2025 9:00 AM CDT [facility] SEWER SYSTEM SUPERVISOR CODE 121,731 03/24/2025 9:00 AM CDT [facility] 03/23/2025 3:38 PM CDT Darell Mahoney MD POCT ORDERABLES - DEVICE Fin al Result Performing Organization Address [facility] de Phone Number [facility] [address] [place] [phone], * XA [facility] (03/23/2025 3:19 PM CDT) Anatomical Region Laterality Modality Cardiac Lease Broker 03/23/2025 4:30 PM CDT Salazar Man MD OPERATIONS SUPPORT ANALYST Final Res ult * (ABNORMAL) TROPONIN, QUANT (03/23/2025 11:51 AM CDT) Only the most recent of2 resultswithin the time period is included. TROPONIN I HIGH SENSITIVITY 1,844(HH) <54 ng/L 03/23/2025 12:44 PM CDT [facility] Comment: NOT CALLED PER CRITICAL VALUE POLICY HIGH DOSES OF BIOTIN, TROPONIN-SPECIFIC AUTOANTIBODIES, AND ANTIBODY THERAPY CONTAINING HAMA MAY INTERFERE WITH THIS TEST RESULT. CORRELATION TO CLINICAL HISTORY AND PRESENTATION RECOMMENDED. 03/23/2025 11:5 1 AM CDT us Jeremy Navarrete MD LABORATORY Final Resul t [facility] [address] [place] [address], [place] [phone] * MRI BRAIN WO CON (03/23/2025 11:33 AM CDT) Anatomical Region Laterality Modality Head Magnetic Resonan ce 03/23/2025 12:5 1 PM CDT Impressions 03/23/2025 12:56 PM CDT IMPRESSION: 1. 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 No hemorrhagic transformation. 2. Small vessel disease and volume loss. Ordered By: JEREMY NAVARRETE Interpreted By: Jeremiah Matthews MD, 03/23/2025 12:51 PM Narrative 03/23/2025 12:56 PM CDT [facility] [address] [place], [place] [address] DATE: 03/23/2025 11:11 AM INDICATION: Stroke. Right upper extremity numbness and weakness. Speech and writing difficulty EXAMINATION: MRI brain without contrast. TECHNIQUE: Multiplanar and multisequence MRI images of the brain were obtained without contrast. COMPARISON: Outside CT 03/22/2025 FINDINGS: There are small patchy foci of diffusion restriction and corresponding T2/FLAIR hyperintensity noted in the left insular and frontoparietal parenchyma, consistent with small recent infarcts. No hemorrhagic transformation. Otherwise there are patchy foci of FLAIR hyperintensity noted in the hemispheric white matter, likely due to small vessel disease. Mild volume loss with enlargement of the ventricles and extra-axial/subarachnoid spaces. No extra-axial collections. Proximal portions of the major intracranial arterial flow voids are patent. No hemorrhagic foci of susceptibility seen. Craniocervical junction, sellar content, pineal region are unremarkable. Mastoid air cells are clear. Mild mucosal thickening in the paranasal sinuses. Bilateral lens replacements. Procedure Note Jeremiah Matthews MD - 03/23/[address] [address] DATE: 03/23/2025 11:11 AM INDICATION: Stroke. Right upper extremity numbness and weakness. Speechand writing difficulty EXAMINATION: MRI brain without contrast. TECHNIQUE: Multiplanar and multisequence MRI images of the brain wereobtained without contrast. COMPARISON: Outside CT 03/22/2025 FINDINGS: There are small patchy foci of diffusion restriction and correspondingT2/FLAIR hyperintensity noted in the left insular and frontoparietalparenchyma, consistent with small recent infarcts. No hemorrhagictransformation. Otherwise there are patchy foci of FLAIR hyperintensitynoted in the hemispheric white matter, likely due to small vessel disease.Mild volume loss with enlargement of the ventricles andextra-axial/subarachnoid spaces. No extra-axial collections. Proximalportions of the major intracranial arterial flow voids are patent. Nohemorrhagic foci of susceptibility seen. Craniocervical junction, sellarcontent, pineal region are unremarkable. Mastoid air cells are clear. Mildmucosal thickening in the paranasal sinuses. Bilateral lensreplacements. IMPRESSION: 1. Small patchy recent left MCA territory infarcts in the left insular andfrontoparietal parenchyma. No hemorrhagic transformation. 2. Small vessel disease and volume loss. Ordered By: JEREMY NAVARRETE Interpreted By: Jeremiah Matthews MD, 03/23/2025 12:51 PM us Jeremy Navarrete MD MRI Final Resul t * HEMOGLOBIN, GLYCATED (03/23/2025 7:01 AM CDT) HGB A1C 5.5 <5.7 % 03/23/2025 12:17 PM CDT [facility] Comment: ADA GUIDELINES 2009 5.7 TO 6.4% INCREASED RISK OF DIABETES > OR = 6.5% CONSISTENT WITH DIABETES ESTIMATED AVG GLUCOSE 111 mg/dL 03/23/2025 12:17 PM CDT [facility] 03/23/2025 7:01 AM CDT us Jeremy Navarrete MD LABORATORY Final Resul t [facility] [address] [place] [id number], [place] [phone] * CBC W/DIFF AUTOMATED (03/23/2025 7:01 AM CDT) WBC 7.93 4.5 - 11.0 x10'3/uL 03/23/2025 10:23 AM CDT [facility] RBC 4.58 4.20 - 5.40 x10'6/uL 03/23/2025 10:23 AM CDT [facility] HGB 13.8 12.0 - 16.0 G/DL 03/23/2025 10:23 AM CDT [facility] HCT 41.9 38.0 - 48.0 % 03/23/2025 10:23 AM CDT [facility] MCV 91.5 81.0 - 99.0 FL 03/23/2025 10:23 AM CDT [facility] MCH 30.1 27.0 - 31.0 PG 03/23/2025 10:23 AM CDT [facility] MCHC 32.9 32.0 - 36.0 G/DL 03/23/2025 10:23 AM CDT [facility] RDW 13.8 11.5 - 14.5 % 03/23/2025 10:23 AM CDT [facility] PLT 298 130 - 400 x10'3/uL 03/23/2025 10:23 AM CDT [facility] MPV 11.4 9.3 - 12.2 FL 03/23/2025 10:23 AM CDT [facility] DIFFERENTIAL TYPE AUTOMATED DIFFERENTIAL 03/23/2025 10:23 AM CDT [facility] NEUTROPHILS % 63.9 % 03/23/2025 10:23 AM CDT [facility] LYMPHOCYTES % 21.2 % 03/23/2025 10:23 AM CDT [facility] MONOCYTES % 9.2 % 03/23/2025 10:23 AM CDT [facility] EOSINOPHILS 4.3 % 03/23/2025 10:23 AM CDT [facility] BASOPHILS 0.9 % 03/23/2025 10:23 AM CDT [facility] IMMATURE GRANS % 0.5 % 03/23/20 10:23 AM CDT [facility] ABS. NEUTROPHILS 5.07 1.80 - 7.70 x10'3/uL 03/23/2025 10:23 AM CDT [facility] ABS. LYMPHOCYTES 1.68 1.00 - 4.80 x10'3/uL 03/23/2025 10:23 AM CDT [facility] ABS. MONOCYTES 0.73 0.24 - 0.86 x10'3/uL 03/23/2025 10:23 AM CDT [facility] ABS. EOSINOPHILS 0.34 0.04 - 0.36 x10'3/uL 03/23/2025 10:23 AM CDT [facility] ABS. BASOPHILS 0.07 0.01 - 0.08 x10'3/uL 03/23/2025 10:23 AM CDT [facility] ABS. IMMATURE GRANULOCYTES 0.04 0.00 - 0.49 x10'3/uL 03/23/2025 10:23 AM CDT [facility] 03/23/2025 7:01 AM CDT Jeremy Navarrete MD LABORATORY Final Resul t Performing Organization Address City/[facility]/ZIP Co de Phone Number [facility] [address] [place] [address], [place] [phone] * THYROID STIM HORMONE, TSH (03/23/2025 7:01 AM CDT) TSH 0.701 0.358 - 3.74 uIU/ML 03/23/2025 7:56 AM CDT [facility] Comment: HIGH DOSES OF BIOTIN MAY INTERFERE WITH THIS TEST RESULT. CORRELATION TO CLINICAL HISTORY AND PRESENTATION RECOMMENDED. 03/23/2025 7:01 AM CDT Jeremy Navarrete MD LABORATORY Final Resul t [facility] [address] [place] [address], [place] [phone] * MAGNESIUM (03/23/2025 7:01 AM CDT) MAGNESIUM 2.2 1.8 - 2.4 MG/DL 03/23/2025 7:56 AM CDT [facility] 03/23/2025 7:01 AM CDT Jeremy Navarrete MD LABORATORY Final Resul t [facility] [address] [facility] [place] [address], * BONE DENSITY/DEXA (08/31/2023 2:51 PM CDT) Anatomical Region Laterality Modality Bone Bone Density 09/05/2023 3:24 AM CDT Impressions 09/05/2023 3:28 AM CDT Impression: Osteopenia. 10 yr major fracture risk is 34% and hip fracture risk is 20%. Referred By: SALVADOR IVY Interpreted By: Shayne Keller MD, 09/05/2023 3:24 [...] bone mineral density test. [facility] is allowed once every 2 [...] fracture risk is 20%. Referred By: SALVADOR IVY Interpreted By: Shayne Keller MD, 09/05/2023 3:24 AM Salvador Ivy MD DEXA Final Resul t from Last 3 Months or Most Recently Relevant to Health Maintenance Insurance MEDICARE [facility] Advance Directives * Full Code (Latest Code Status on File) Date Activated Date Inactivated Comments 03/23/2025 4:07 PM 03/25/2025 3:19 PM * Full Code Date Activated Date Inactivated Comments 03/22/2025 10:36 PM 03/23/2025 4:07 PM * Full Code Date Activated Date Inactivated Comments 01/14/2023 2:37 PM 01/14/2023 5:19 PM Care Teams Lye Peel Operator Relationship Specialty [place] [address] [place] [address] [place] [phone] PCP - General FAMILY PRACTICE 09/20/19 Emelia Soliman MD [address] [place], [place] [phone] Consulting Physician NEUROLOGY 03/23/25 03/23/26
== END 2025-03-27 11:42 | disposition home or self-care (01) ==
LOC: CHSLAB 11:45 → CHSCARD 11:45
PROVIDERS: PCP Nurse Practitioner Family; Visit Provider Nurse Practitioner Family
DX: I48.91 Unspecified atrial fibrillation (principal); R94.31 Abnormal electrocardiogram [ECG] [EKG]
CPT/HCPCS: 93005

== ENCOUNTER 2025-04-03 10:46 | Outpatient (CLI) | payer MEDICARE, SELFPAY ==
--- NOTE | 2025-04-03 11:02 | ECG_ITS ---
Test Date: 2025-04-03 11:19:42 Measurements Intervals [place] Rate: 103 P: 0 MI: 0 QRS: 62 QRSD: 93 T: -49 QT: 360 QTc: 473 Interpretive Statements ATRIAL FIBRILLATION WITH RAPID VENTRICULAR RESPONSE INCOMPLETE RIGHT BUNDLE BRANCH BLOCK [90+ ms QRS DURATION, TERMINAL R IN V1/V2, 40+ ms S IN I/aVL/V4/V5/V6] NONSPECIFIC T-WAVE ABNORMALITY ABNORMAL ECG Compared to ECG 03/27/2025 12:01:50 THERE IS NO SIGNIFICANT DIFFERENCE Electronically Signed On 04-03-2025 15:55:43 CDT by Eric Veloz M.D.
[2025-04-03 11:26] LABS: INR 2.2; Prothrombin Time 22.1 Seconds (9.50-12.1)
--- OUTSIDE RECORDS SUMMARY | 2025-04-03 11:40 | XMS_ITS | Clinical Summary ---
Author Organization [facility] Address [address] [place] [address] Care Team Providers Care Psychological Assistant Name Role Phone Emelia Soliman MD Unavailable [phone] Linda Rios Primary Care Provider [phone] Amber Bradley RN Unavailable Unavailable Allergies Active Allergy Reactions Criticality Noted Date Comments Penicillins Hives 12/17/2022 Medications multi vitamin/mineral s (THERA-M ENHANCED) tablet Take 1 tablet by mouth daily. Active metoprolol succinate ER (TOPROL-XL) 100 MG 24 hr tablet Take 1 tablet (100 mg total) by mouth 2 (two) times daily for 30 days. 60 tablet 03/25/20 25 025 Active atorvastatin (LIPITOR) 80 MG tabletIndicatio ns:Cerebrovascu lar accident (CVA), unspecified mechanism (CMS/HCC HHS/HCC) Take 1 tablet (80 mg total) by mouth nightly at bedtime. 30 tablet 03/25/20 25 Active nitroglycerin (NITROSTAT) 0.[address] 1 tablet (0.4 mg total) under the tongue every 5 (five) minutes as needed for Chest Pain. 30 tablet 03/25/20 25 Active warfarin (COUMADIN) 2 MG tablet Take 1.5 tablets (3 mg total) by mouth daily for 14 days. Take 1.5 tablets (3 mg total) by mouth daily. 21 tablet 03/25/20 25 025 Active metoprolol succinate ER (TOPROL-XL) 50 MG 24 hr tablet Take 1.5 tablets (75 mg total) by mouth daily. 07/24/20 22 025 Discontinued(St op Taking at Discharge) pravastatin (PRAVACHOL) 80 MG tablet Take 1 tablet (80 mg total) by mouth daily. 09/01/20 22 025 Discontinued(St op Taking at Discharge) nitroglycerin (NITROSTAT) 0.[address] 1 tablet (0.4 mg total) under the tongue every 5 (five) minutes as needed for Chest Pain. 30 tablet 03/25/20 025 Discontinued atorvastatin (LIPITOR) 80 MG tabletIndicatio ns:Cerebrovascu lar accident (CVA), unspecified mechanism ([facility]) Take 1 tablet (80 mg total) by mouth nightly at bedtime. 30 tablet 03/25/20 025 Discontinued dabigatran (PRADAXA) 75 MG Cap Take 1 capsule (75 mg total) by mouth 2 (two) times daily. 60 capsule 2 03/24/20 025 Discontinued(St op Taking at Discharge) warfarin (COUMADIN) [...] 3 days. 3.6 mL 03/25/20 025 Discontinued enoxaparin (LOVENOX) 60 MG/0.6ML Solution Prefilled Syringe Inject 0.6 mLs (60 mg total) into the skin every 12 (twelve) hours for 3 days. 3.6 mL 03/25/20 25 025 Active Problems Problem Noted Date Diagnosed Date Generalized weakness 04/03/2025 Abnormal gait 04/03/2025 A-fib ([facility]) 03/22/2025 Encounters Date Type Department Care Team Description 04/03/2025 8:42 AM CDT Hospital Encounter [facility] [address] [place] [address] Radha Escamilla, PT Weakness 04/03/2025 Travel 03/30/2025 Telephone [facility] [address] [place] [phone] Ayah Hinson MD Appointment Request 03/30/2025 Telephone [facility] [address] [place] [address] Salazar Man MD Appointment Request 03/30/2025 Telephone [facility] Multispecialty Care - [facility] [address] [facility], [address] [place] [phone] Emelia Soliman MD Reschedule 03/29/2025 [facility] [address] [place] [phone] Amber Bradley RN [facility] 03/22/2025 10:20 PM CDT - 03/25/2025 1:19 PM CDT Hospital Encounter [facility] [place] [address] Mary Beth Grey MD Elayyan, MD Andrez Burt, MD Denzel Urbano Vincent J, MD Discharge Disposition: Home or Self Care [...] drink = 0.6 oz pur e alcohol) [facility] Utilities Answer Date Recorded In the past 12 months has e electric, gas, oil, or water company threatened to shut off services in your [...] any time in the past 12 [place], were you homeless or living in a mcc (including now)? 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 Gender Identity Female 03/22/2025 10:30 PM CDT [...] 03/22/2025 10:42 PM CDT Plan of Treatment Upcoming Encounters Date Type Department Care Team (Late st Contact Info) Description 04/07/2025 8:30 AM CDT Appointment [facility] [address] [place] [address] Non-Staff, Provider Denice Rice PTA 04/07/2025 9:30 AM CDT Appointment [facility] [address] [place] [address] Emelia Soliman MD [address] [place] [address] Hilary Dang, OT [address] [place] [address] 04/07/2025 12:15 PM CDT Office Visit [facility] [place] [phone] Ayah Hinson MD [address] [place] [address] 04/10/2025 10:00 AM CDT Appointment [facility] [address] [place] [address] Non-Staff, Provider Denice Rice, CUSTOMER EQUIPMENT ENGINEER 04/13/2025 10:00 AM CDT Appointment [facility] [address] [place] [address] Non-Staff, Provider Denice Rice, CUSTOMER EQUIPMENT ENGINEER 05/01/2025 7:40 AM CDT Office Visit [facility] Medical [facility] Multispecialty Care - [facility] [address] [facility], [address] [place] [address] Emelia Soliman MD [address] [place] [address] Health Maintenance Due Date Last Done Comments Hepatitis C 1965 DTaP, Tdap and Td Vaccines ( 1 - Tdap) 1966 Zoster Vaccines (1 of 2) 1997 Annual Medicare Wellness Visit 2012 RSV Immunization or 60+ Years (1 - 1-dose 75+ series) 2022 COVID-19 Vaccine ( - 2023-2 5 season) 2024 09/26/2021, 03/11/2021, 02/10/2021 PHQ-2 (Physician [facility]) 11/30/2024 Pneumococcal Vaccine: 50+ Years Completed 12/16/2021, 11/26/2020 [...] this topic Medical Devices Implanted Type Area Chronometer Tester Device Identifier Shelf Expiration Date Model / Serial / Lot Iol Tecnis Simplicity Dcb00 - [id number] Implanted:Qty: 1 on 01/14/2023 by Geetha Ahmadi MD at [facility] Lens Right: Eye [facility] [id number] 11/05/2025 DCB00 / [id number] / [id number] Left Eye Implant Lens Implanted:Qty: 1 on 12/17/2022 by Geetha Ahmadi MD at [facility] Left: Eye 09/30/2025 DCB00 / / [id number] Procedures Procedure Name Priority Date/Time Associated [...] - 12.9 SEC 03/25/2025 8:[address] [facility] INR 1.1 03/25/2025 8:[address] [facility] Comment: Recommended INR Therapeutic Goals: 2.0-3.0 Routine Therapy 2.5-3.5 Mechanical Prosthetic Valves (High Risk) 03/25/2025 7:53 AM CDT us Darell Mahoney MD LABORATORY Final Result [facility] [address] [place] [address], * (ABNORMAL) BASIC METABOLIC PANEL (03/25/2025 7:53 AM CDT) Only the most recent of3 resultswithin the time period is included. GLUCOSE 83 70 - 99 MG/DL 03/25/2025 8:[address] [facility] BUN 13 7 - 18 MG/DL 03/25/2025 8:[address] [facility] CREATININE S/P/B 0.58 0.55 - 1.02 MG/DL 03/25/2025 8:[address] [facility] SODIUM S/P/B 141 136 - 145 MMOL/L 03/25/2025 8:[address] [facility] POTASSIUM S/P/B 3.8 3.5 - 5.1 MMOL/L 03/25/2025 8:[address] [facility] CHLORIDE S/P/B 108 97 - 115 MMOL/L 03/25/2025 8:[address] [facility] CO2 25.7 21 - 32 MMOL/L 03/25/2025 8:[address] [facility] CALCIUM S/P/B 8.0(L) 8.5 - 10.1 MG/DL 03/25/2025 8:[address] [facility] ANION GAP 7.3 2 - 10 MMOL/L 03/25/2025 8:[address] [facility] BUN CREATININE RATIO 22.5 6 - 26 03/25/2025 8:[address] [facility] GFR ESTIMATE >90 >90 ML/MIN/1.7 3 M2 03/25/2025 8:[address] [facility] Comment: NOTE: eGFR is not calculated for patients <18 years of age or gender unknown. This is an estimated GFR calculation using the new CKD EPI creatinine equation without race and so does not require a correction factor for race. This estimated GFR should not be used for calculating drug doses. 03/25/2025 7:53 AM CDT Gifty Mayfield MD LABORATORY Final Result [facility] [address] [place] [address], [place] [phone] * CBC, AUTO, NO DIFF (03/25/2025 7:53 AM CDT) Only the most recent of2 resultswithin the time period is included. WBC 9.30 4.5 - 11.0 x10'3/uL 03/25/2025 8:[address] [facility] RBC 4.56 4.20 - 5.40 x10'6/uL 03/25/2025 8:[address] [facility] HGB 13.7 12.0 - 16.0 G/DL 03/25/2025 8:[address] [facility] HCT 42.2 38.0 - 48.0 % 03/25/2025 8:[address] [facility] MCV 92.5 81.0 - 99.0 FL 03/25/2025 8:[address] [facility] MCH 30.0 27.0 - 31.0 PG 03/25/2025 8:[address] [facility] MCHC 32.5 32.0 - 36.0 G/DL 03/25/2025 8:[address] [facility] RDW 13.6 11.5 - 14.5 % 03/25/2025 8:[address] [facility] PLT 308 130 - 400 x10'3/uL 03/25/2025 8:[address] [facility] MPV 11.1 9.3 - 12.2 FL 03/25/2025 8:[address] [facility] 03/25/2025 7:53 AM CDT us Gifty Mayfield MD LABORATORY Final Result [facility] [address] [place] [address], * POCT glucose (03/24/2025 10:54 AM CDT) Only the most recent of2 resultswithin the time period is included. [facility] GLUCOSE POC 79 70 - 99 mg/dL 03/24/2025 12:[address] [facility] 03/24/2025 10:5 4 AM CDT us Darell Mahoney MD POCT ORDERABLES - DEVICE Fin al Result [facility] [address] [place] [address], * USV CAROTID DUPLEX EDWARD (03/24/2025 9:10 AM CDT) Anatomical Region Laterality Modality Neck Vascular Ultraso und 03/24/2025 8:47 AM CDT Narrative 03/24/2025 11:09 AM CDT CAROTID ARTERY DUPLEX IMAGING VASCULAR LAB Pat.Name: SARINA LEIF MA Pat.ID: [id number] .Date: 03/24/2025 Refer.MD: Salvador Ivy Exam Time: 8:47:00 AM Study Type:EUN VS Duplex Carotid BI Height: 60 in Age: 2 1945,80Y Sex: F Sonogrphr: Terrell Paige, BRENDENT Procedures: Guajardo scale, Color Doppler imaging, Doppler [...] VASCULAR LAB Pat.Name: LEIF BRANCH MARLEEN Pat.ID: [id number] .Date: 03/24/2025 Refer.MD: Salvador Ivy Exam Time: 8:47:00 AM Study Type:EUN VS Duplex Carotid BI Height: 60 in Age: 2 1945,80Y Sex: F Sonogrphr: Terrell Paige, T Procedures: Guajardo scale, Color Doppler imaging, Doppler [...] AM Alyce Allred M.D. Emelia Soliman MD VAS Final Re sult * USE ECHOCARDIOGRAM (03/24/2025 9:01 AM CDT) Anatomical Region Laterality Modality Cardiac Echocardiogram 03/24/2025 7:59 AM CDT Narrative 03/24/2025 12:31 PM CDT Echocardiography Report Pat.Name: LEIF BRANCH MA Pat.ID: [id number] .Date: 03/24/2025 : [id number] PAXTON Delacruz EWDPROV EWDPROV Exam Time: 7:59:00 AM Study Type:ECHO WITH CARDIAC DOPPLER COMP Height: 60 in Weight: 129 lb BSA: 1.55 m2 Age: 2 1945,80Y Sex: F BP: 140/88 HR: 96 bpm Sonogrphr: Daphnie Correa Pat. Stat.:Inpatient Room: [facility] Reason for Study:Atrial fibrillation / flutter Procedures: [...] Composite heart 113 bpm Mitral Valve Decel Dallas 800 cm/s2 HR 114 bpm Pulmonic Valve [...] Left Atrium LA VOLBP 70.4 ml Major [place] (Sys 6.12 cm Mace Disk Nu 9 Major [place] (Sys 7.11 cm Ratios IVS Ventricular Septum IVSd 1.38 cm Aorta AO Ds 3.31 cm Ascending Aorti 2.71 cm LV Area-Length Biplane LVEDV 62 ml LVESV 20.3 ml LV Area-Length Single Plane LVEDV 73.1 ml LVESV 22.3 ml LVEDV 52.8 ml LVESV 19 ml LVOT LVOTArea 3.2 cm2 Cardiovascular 2.02 cm Right Atrium Major [place] (Sys 4.87 cm Mace Disk Nu 9 HR 111 bpm RA Area-Length Single Plane Volume (Systole 11.5 ml/m2 RA Single Plane RA sys Area 10.1 cm2 Volume (Systole 18.3 ml Right Ventricle Major [place] (Pili 5.8 cm Minor [place] (Pili 3.21 cm HR 91 bpm TA [...] Bates MD - 03/24/2025 Echocardiography Report Pat.Name: PEGGY BRANCHLISET HAWLEY Pat.ID: [id number] .Date: 03/24/2025 Refer.MD: [id number] PAXTON Delacruz EWDPROV EWDPROV Exam Time: 7:59:00 AM Study Type:ECHO WITH CARDIAC DOPPLER COMP Height: 60 in Weight: 129 lb BSA: 1.55 m2 Age: 2 1945,80Y Sex: F BP: 140/88 HR: 96 bpm Sonogrphr: Daphnie Correa Pat. Stat.:Inpatient Room: [facility] Reason for Study:Atrial fibrillation / flutter Procedures: [...] Composite heart 113 bpm Mitral Valve Decel [place] 800 cm/s2 HR 114 bpm Pulmonic Valve [...] Left Atrium LA VOLBP 70.4 ml Major [place] (Sys 6.12 cm Mace Disk Nu 9 Major [place] (Sys 7.11 cm Ratios IVS Ventricular Septum IVSd 1.38 cm Aorta AO Ds 3.31 cm Ascending Aorti 2.71 cm LV Area-Length Biplane LVEDV 62 ml LVESV 20.3 ml LV Area-Length Single Plane LVEDV 73.1 ml LVESV 22.3 ml LVEDV 52.8 ml LVESV 19 ml LVOT LVOTArea 3.2 cm2 Cardiovascular 2.02 cm Right Atrium [place] (Sys 4.87 cm Mace Disk Nu 9 HR 111 bpm RA Area-Length Single Plane Volume (Systole 11.5 ml/m2 RA Single Plane RA sys Area 10.1 cm2 Volume (Systole 18.3 ml Right Ventricle Major [place] (Pili 5.8 cm Minor [place] (Pili 3.21 cm HR 91 bpm TA Cardiovascular 3.74 cm MMODE Left Ventricle Heart Rate-Marbella 439 millisecond Composite HR fo 102 bpm Composite heart 102 bpm RVOT PG pk 1.6 mmHg Peak Velocity 63.2 cm/s Tricuspid Valve Tricuspid annul 1.78 cm Vena Cava IVC Diam 1.4 cm <Electronic Signature> 03/24/2025 12:31 PM Cheng Bates M.D. Kevin Maguire MD ECHO Final R esult * (ABNORMAL) HEPARIN, ANTI XA, UFH (03/24/2025 7:05 AM CDT) Only the most recent of6 resultswithin the time period is included. HEPARIN ANTI XA UFH 0.78(H) 0.30 - 0.70 IU/ML 03/24/2025 8:[address] [facility] Comment: UFH Therapeutic Anti Xa Ranges: Medical Therapeutic Range: 0.30 - 0.70 IU/mL Cardiac Therapeutic Range: 0.30 - 0.50 IU/mL Neuro Therapeutic Range: 0.20 - 0.40 IU/mL 03/24/2025 7:05 AM CDT Kevin Maguire MD LABORATORY Final R esult [facility] [address] [place] [address], [place] [phone] * (ABNORMAL) LIPID PANEL (03/24/2025 7:05 AM CDT) Only the most recent of2 resultswithin the time period is included. CHOLESTEROL 200(H) <200 MG/DL 03/24/2025 7:[address] [facility] TRIGLYCERIDES 111 <150 MG/DL 03/24/2025 7:[address] [facility] HDL 57 >40.0 MG/DL 03/24/2025 7:[address] [facility] LDL (CALCULATED) 121(H) <100 MG/DL 03/24/2025 7:[address] [facility] NON HDL CHOLESTEROL 143(H) <130 MG/DL 03/24/2025 7:[address] [facility] CHOL/HDL RATIO 3.5 0.0 - 4.5 03/24/2025 7:[address] [facility] VLDL CALCULATION 22 5 - 55 MG/DL 03/24/2025 7:[address] [facility] LIPID INTERPRETATION 03/24/2025 7:[address] [facility] Comment: NIH CONCENSUS REPORT RECOMMENDATIONS: ADULT CHILD LOW RISK: CHOLESTEROL <200 <170 TRIGLYCERIDE <150 --- HDL >=60 --- LDL <100 <110 BORDERLINE: CHOLESTEROL 200-239 170-199 TRIGLYCERIDE 150-199 --- HDL 40-59 --- LDL 100-159 110-129 HIGH RISK: CHOLESTEROL >=240 >=200 TRIGLYCERIDE >=200 --- HDL <40 --- LDL >=160 >=130 03/24/2025 7:05 AM CDT us Gifty Mayfield MD LABORATORY Final Result [facility] [address] [place] [address], [place] [phone] * (ABNORMAL) POCT ACTIVATED CLOTTING TIME - ISTAT DOCKED DEVICE (03/23/2025 3:38 PM CDT) Only the most recent of2 resultswithin the time period is included. [facility] ACTIVATED CLOTTING TIME (ACT) 186(H) 74 - 125 SEC 03/24/2025 9:[address] [facility] FRUIT RAISER CODE [id number] 03/24/2025 9:[address] [facility] 03/23/2025 3:38 PM CDT Darell Mahoney MD POCT ORDERABLES - DEVICE Fin al Result Performing Organization Address City/[facility]/ZIP Co de Phone Number [facility] [address] [place] [address], [place] [phone] * XA LHC POSS (03/23/2025 3:19 PM CDT) Anatomical Region Laterality Modality Cardiac Digital Ad Trafficker 03/23/2025 4:30 PM CDT Salazar Man MD ABRASIVES SALES REPRESENTATIVE Final Res ult * (ABNORMAL) TROPONIN, QUANT (03/23/2025 11:51 AM CDT) Only the most recent of2 resultswithin the time period is included. TROPONIN I HIGH SENSITIVITY 1,844(HH) <54 ng/L 03/23/2025 12:[address] [facility] Comment: NOT CALLED PER CRITICAL VALUE POLICY HIGH DOSES OF BIOTIN, TROPONIN-SPECIFIC AUTOANTIBODIES, AND ANTIBODY THERAPY CONTAINING HAMA MAY INTERFERE WITH THIS TEST RESULT. CORRELATION TO CLINICAL HISTORY AND PRESENTATION RECOMMENDED. 03/23/2025 11:5 1 AM CDT Jeremy Navarrete MD LABORATORY Final Resul t Performing Organization Address City/[facility]/ZIP Co de Phone Number [facility] [address] [place] [address], [place] [phone] * MRI BRAIN WO CON (03/23/2025 11:33 [...] 12:51 PM Narrative 03/23/2025 12:56 PM CDT [address] [address] DATE: 03/23/2025 11:11 AM INDICATION: Stroke. Right [...] Procedure Note Jeremiah Matthews MD - 03/23/[address] [address] DATE: 03/23/2025 11:11 AM INDICATION: Stroke. Right [...] By: Jeremiah Matthews MD, 03/23/2025 12:51 PM Jeremy Navarrete MD MRI Final Resul t * HEMOGLOBIN, GLYCATED (03/23/2025 7:01 AM CDT) HGB A1C 5.5 <5.7 % 03/23/2025 12:[address] [facility] Comment: ADA GUIDELINES 2010 5.7 TO 6.4% INCREASED RISK OF DIABETES > OR = 6.5% CONSISTENT WITH DIABETES ESTIMATED AVG GLUCOSE 111 mg/dL 03/23/2025 12:[address] [facility] 03/23/2025 7:01 AM CDT us Jeremy Navarrete MD LABORATORY Final Resul t [facility] [address] [place] [address], * CBC W/DIFF AUTOMATED (03/23/2025 7:01 AM CDT) [facility] WBC 7.93 4.5 - 11.0 x10'3/uL 03/23/2025 10:[address] [facility] RBC 4.58 4.20 - 5.40 x10'6/uL 03/23/2025 10:[address] [facility] HGB 13.8 12.0 - 16.0 G/DL 03/23/2025 10:[address] [facility] HCT 41.9 38.0 - 48.0 % 03/23/2025 10:[address] [facility] MCV 91.5 81.0 - 99.0 FL 03/23/2025 10:[address] [facility] MCH 30.1 27.0 - 31.0 PG 03/23/2025 10:[address] [facility] MCHC 32.9 32.0 - 36.0 G/DL 03/23/2025 10:[address] [facility] RDW 13.8 11.5 - 14.5 % 03/23/2025 10:[address] [facility] PLT 298 130 - 400 x10'3/uL 03/23/2025 10:[address] [facility] MPV 11.4 9.3 - 12.2 FL 03/23/2025 10:[address] [facility] DIFFERENTIAL TYPE AUTOMATED DIFFERENTIAL 03/23/2025 10:[address] [facility] NEUTROPHILS % 63.9 % 03/23/2025 10:[address] [facility] LYMPHOCYTES % 21.2 % 03/23/2025 10:[address] [facility] MONOCYTES % 9.2 % 03/23/2025 10:[address] [facility] EOSINOPHILS 4.3 % 03/23/2025 10:[address] [facility] BASOPHILS 0.9 % 03/23/2025 10:[address] [facility] IMMATURE GRANS % 0.5 % 03/23/20 10:[address] [facility] ABS. NEUTROPHILS 5.07 1.80 - 7.70 x10'3/uL 03/23/2025 10:[address] [facility] ABS. LYMPHOCYTES 1.68 1.00 - 4.80 x10'3/uL 03/23/2025 10:[address] [facility] ABS. MONOCYTES 0.73 0.24 - 0.86 x10'3/uL 03/23/2025 10:[address] [facility] ABS. EOSINOPHILS 0.34 0.04 - 0.36 x10'3/uL 03/23/2025 10:[address] [facility] ABS. BASOPHILS 0.07 0.01 - 0.08 x10'3/uL 03/23/2025 10:[address] [facility] ABS. IMMATURE GRANULOCYTES 0.04 0.00 - 0.49 x10'3/uL 03/23/2025 10:[address] [facility] 03/23/2025 7:01 AM CDT us Jeremy Navarrete MD LABORATORY Final Resul t [facility] [address] [place] [address], * THYROID STIM HORMONE, TSH (03/23/2025 7:01 AM CDT) TSH 0.701 0.358 - 3.74 uIU/ML 03/23/2025 7:[address] [facility] Comment: HIGH DOSES OF BIOTIN MAY INTERFERE WITH THIS TEST RESULT. CORRELATION TO CLINICAL HISTORY AND PRESENTATION RECOMMENDED. 03/23/2025 7:01 AM CDT Jeremy Navarrete MD LABORATORY Final Resul t Performing Organization Address City/[facility]/ZIP Co de Phone Number [facility] [address] [place] [address], * MAGNESIUM (03/23/2025 7:01 AM CDT) MAGNESIUM 2.2 1.8 - 2.4 MG/DL 03/23/2025 7:[address] [facility] 03/23/2025 7:01 AM CDT Jeremy Navarrete MD LABORATORY Final Resul t Performing Organization Address City/[facility]/ZIP Co de Phone Number [facility] [address] [place] [phone], * BONE DENSITY/DEXA (08/31/2023 2:51 PM CDT) [...] Recently Relevant to Health Maintenance Insurance MEDICARE [facility] Advance Directives * Full Code (Latest Code Status on File) Date Activated Date Inactivated Comments 03/23/2025 4:07 PM 03/25/2025 3:19 PM * Full Code Date Activated Date Inactivated Comments 03/22/2025 10:36 PM 03/23/2025 4:07 PM * Full Code Date Activated Date Inactivated Comments 01/14/2023 2:37 PM 01/14/2023 5:19 PM Care Teams Psychological Assistant Relationship Specialty Start Date End Date Linda Rios FNP [address] [place] [phone] PCP - General Nurse Practitioner Family 03/29/25 Emelia Soliman MD [address] [place] [phone] Consulting Physician NEUROLOGY 03/23/25 03/23/26 Amber Bradley, RN Registered Nurse CARE MANAGEMENT 03/29/25
--- OUTSIDE RECORDS SUMMARY | 2025-04-03 11:41 | XMS_ITS | Encounter Summary ---
Author Organization [facility] Address [facility] [place] [address] Care Team Providers Care Shrimp Trawler Captain Name Role Phone Emelia Soliman MD Unavailable [phone] Linda Rios Primary Care Provider [phone] Amber Bradley RN Unavailable Unavailable Reason for Visit * Reason Comments Weakness * Physical Therapy (Routine) - Authorized Specialty Diagnoses / Procedures Referred By Contac t Referred To Contact PHYSICAL THERAPY / [facility] Physical Therapy Diagnoses Evaluate and treat for Acute Stroke Procedures EVAL Non-Staff, Provider Radha Escamilla, PT [address] [id number] Phone: tel: fax: Referral ID Status Reason Start Date Expiration Date Visits Requested Visits Authorized [id number] Authorized Physical Therapy 04/03/2025 20 20 Encounter Details Date Type Department Care Team (Late st Contact Info) Description 04/03/2025 8:42 AM CDT Hospital Encounter [facility] [address] [place] [address] Radha Escamilla, PT [address] [place] [address] Weakness Social History Tobacco Use Types Packs/Day Years Used Date Smoking Tobacco: Never Smokeless Tobacco: Never Alcohol Use Standard Drinks/Week Comments Not Currently 0 (1 standard drink = 0.6 oz pur e alcohol) [facility] Utilities Answer Date Recorded In the past [...] any time in the past 12 m [facility], were you homeless or living in a custodial (including now)? 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 Answer Date of Assessment Author Status No 03/22/2025 10:22 PM CDT Jd Perez, RN-LP Active * Do you have serious difficulty walking or climbing stairs? Answer Date of Assessment Author Status No 03/22/2025 10:22 PM CDT Jd Perez, RN-LP Active * Do you have difficulty dressing or bathing? Answer Date of Assessment Author Status No 03/22/2025 10:22 PM CDT Jd Perez, RN-LP Active * Because of a physical, mental, or emotional condition, do you have difficulty doing errands alone such as visiting a doctor's office or shopping? Answer Date of Assessment Author Status No 03/22/2025 10:22 PM CDT Jd Perez, RN-LP Active documented as of this encounter Mental Status * Because of a physical, mental, or emotional condition, do you have serious difficulty concentrating, remembering, or making decisions? Answer Entry Date Author Status No 03/22/2025 10:22 PM CDT Jd Perez, RN-LP Active documented in this encounter Plan of Treatment Upcoming Encounters Date Type Department Care Team (Late st Contact Info) Description 04/07/2025 8:30 AM CDT Appointment [facility] [address] [place] [address] Non-Staff, Provider Denice Rice PTA 04/07/2025 9:30 AM CDT Appointment [facility] [address] [place] [address] Emelia Soliman MD [address] [place] [address] Hilary Dang, OT [address] [place] [address] 04/07/2025 12:15 PM CDT Office Visit [facility] [place] [address] Ayah Hinson MD [address] [place] [address] 04/10/2025 10:00 AM CDT Appointment [facility] [address] [place] [address] Non-Staff, Provider Denice Rice, CHEMICAL PLANT OPERATOR SUPERVISOR 04/13/2025 10:00 AM CDT Appointment [facility] [address] [place] [address] Non-Staff, Provider Denice Rice, CHEMICAL PLANT OPERATOR SUPERVISOR 05/01/2025 7:40 AM CDT Office Visit [facility] Multispecialty Care - [address], [address] [place] [address] Emelia Soliman MD [address] [place] [address] documented as of this encounter Visit Diagnoses Diagnosis Generalized weakness- Primary Other malaise and fatigue Abnormal gait Abnormality of gait documented in this encounter Care Teams Shrimp Trawler Captain Relationship Specialty Start Date End Date Linda Rios FNP [address] [place] [phone] PCP - General Nurse Practitioner Family 03/29/25 Emelia Soliman MD [address] [place] [address] Consulting Physician NEUROLOGY 03/23/25 03/23/26 Amber Bradley, RN Registered Nurse CARE MANAGEMENT 03/29/25 documented as of this encounter
--- OUTSIDE RECORDS SUMMARY | 2025-04-03 11:41 | XMS_ITS | Encounter Summary ---
Author Organization [facility] Address [address] [place] [address] Care Team Providers Care Director Of Customer Acquisition Name Role Phone Emelia Soliman MD Unavailable [phone] Linda Rios Primary Care Provider [phone] Amber Bradley RN Unavailable Unavailable Encounter Details Date Type Department Care Team (Latest Contact Info) Description 04/03/2025 Travel Social History Tobacco Use Types Packs/Day Years Used Date Smoking Tobacco: Never Smokeless Tobacco: Never Alcohol Use Standard Drinks/Week Comments Not Currently 0 (1 standard drink = 0.6 oz pur e alcohol) [facility] Utilities Answer Date Recorded In the past [...] any time in the past 12 m [facility], were you homeless or living in a care home (including now)? 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 Sex Female 5:53 PM SODA JERKER Gender Identity Female 03/22/2025 10:30 PM CDT Sexual Orientation Straight 03/22/2025 10 :30 PM CDT documented as of this encounter Functional Status * Are you deaf or do you have serious difficulty hearing Answer Date of Assessment Author Status No 03/22/2025 10:22 PM CDT Jd Perez, RNYiselLP Active * Are you blind or do you have serious difficulty seeing, even when wearing glasses? Answer Date of Assessment Author Status No 03/22/2025 10:22 PM CDT Jd Perez, RNYiselLP Active * Do you have serious difficulty walking or climbing stairs? Answer Date of Assessment Author Status No 03/22/2025 10:22 PM CDT Jd Perez, RNYiselLP Active * Do you have difficulty dressing or bathing? Answer Date of Assessment Author Status No 03/22/2025 10:22 PM CDT Jd Perez RN-JULIETA Active * Because of a physical, mental, or emotional condition, do you have difficulty doing errands alone such as visiting a doctor's office or shopping? Answer Date of Assessment Author Status No 03/22/2025 10:22 PM CDT Jd Perez RN-LP Active documented as of this encounter Mental Status * Because of a physical, mental, or emotional condition, do you have serious difficulty concentrating, remembering, or making decisions? Answer Entry Date Author Status No 03/22/2025 10:22 PM CDT Jd Perez RN-LP Active documented in this encounter Plan of Treatment Upcoming Encounters Date Type Department Care Team (Late st Contact Info) Description 04/07/2025 8:30 AM CDT Appointment [facility] [address] [place] [id number] Non-Staff, Provider Denice Rice, NHI 04/07/2025 9:30 AM CDT Appointment [facility] [address] [place] [address] Emelia Soliman MD [address] [place], [place] [address] Hilary Dang, OT [address] [place] [address] 04/07/2025 12:15 PM CDT Office Visit [facility] [place] [phone] Ayah Hinson MD [address] [place] [address] 04/10/2025 10:00 AM CDT Appointment [facility] [address] [place] [address] Non-Staff, Provider Denice Rice, HIDE MILL WORKER 04/13/2025 10:00 AM CDT Appointment [facility] [address] [place] [address] Non-Staff, Provider Denice Rice, NHI 05/01/2025 7:40 AM CDT Office Visit [facility] Multispecialty Care - [facility] [address] [facility], [address] [place] [address] Emelia Soliman MD [address] [place] [address] documented as of this encounter Visit Diagnoses Not on filedocumented in this encounter Care Teams Director Of Customer Acquisition Relationship Specialty Start Date End Date Linda Rios FNP [address] [place] [phone] PCP - General Nurse Practitioner Family 03/29/25 Emelia Soliman MD [address] [place] [address] Consulting Physician NEUROLOGY 03/23/25 03/23/26 Amber Bradley, RN Registered Nurse CARE MANAGEMENT 03/29/25 documented as of this encounter
== END 2025-04-03 10:47 | disposition home or self-care (01) ==
LOC: CHSLAB 10:48
PROVIDERS: PCP Family Medicine; Visit Provider Nurse Practitioner Family
DX: I48.91 Unspecified atrial fibrillation (principal); Z79.01 Long term (current) use of anticoagulants; I45.19 Other right bundle-branch block; R94.31 Abnormal electrocardiogram [ECG] [EKG]
CPT/HCPCS: 36415; 85610; 93005

== ENCOUNTER 2025-04-06 09:20 | Outpatient (CLI) | payer MEDICARE, SELFPAY ==
--- NOTE | 2025-04-06 09:30 | ECG_ITS ---
Test Date: 2025-04-06 09:46:16 Measurements Intervals [place] Rate: 95 P: 0 HI: 0 QRS: 59 QRSD: 97 T: -47 QT: 356 QTc: 448 Interpretive Statements ATRIAL FIBRILLATION ST DEVIATION AND MODERATE T-WAVE ABNORMALITY, CONSIDER LATERAL ISCHEMIA [-0.1+ mV T-WAVE IN I/aVL/V5/V6] ST DEVIATION AND MODERATE T-WAVE ABNORMALITY, CONSIDER INFERIOR ISCHEMIA [-0.1+ mV T-WAVE IN II/aVF] Compared to ECG 04/03/2025 11:19:42 NO SIGNIFICANT CHANGES Electronically Signed On 04-06-2025 10:00:18 CDT by Mary Jane Keller M.D.
--- OUTSIDE RECORDS SUMMARY | 2025-04-06 09:40 | XMS_ITS | Clinical Summary ---
Author Organization [facility] Address [address] [place] [address] Care Team Providers Care Operating Systems Programmer Name Role Phone Emelia Soliman MD Unavailable [phone] Linda Rios Primary Care Provider [phone] Amber Bradley RN Unavailable Unavailable Allergies Active [...] tabletIndicatio ns:Cerebrovascu lar accident (CVA), unspecified mechanism ([facility]) Take 1 tablet (80 mg [...] 3 days. 3.6 mL 03/25/20 25 025 Discontinued enoxaparin (LOVENOX) 60 MG/0.6ML Solution Prefilled Syringe Inject 0.6 mLs (60 mg total) into the skin every 12 (twelve) hours for 3 days. 3.6 mL 03/25/20 25 025 Active Problems Problem Noted Date Diagnosed Date Generalized weakness 04/03/2025 Abnormal gait 04/03/2025 A-fib ([facility]) 03/22/2025 Encounters Date Type Department Care Team Description 04/05/2025 Abstract [facility] [address] [place] [address] Abstract, Doc Pccl 04/03/2025 8:42 AM CDT - 04/03/2025 11:59 PM CDT Hospital Encounter [facility] [address] [place] [address] Radha Escamilla, PT Weakness Discharge Disposition: Home or Self Care (Routine Discharge) 04/03/2025 Scan [facility] [address] [place] [address] Scanned, Doc Pccl ECG (SCAN) 04/03/2025 Travel 03/30/2025 Telephone [facility] [address] [place] [address] Ayah Hinson MD Appointment Request 03/30/2025 Telephone [facility] [address] [place] [address] Salazar Man MD Appointment Request 03/30/2025 Telephone [facility] Medical Group [facility] Care - [facility] [address] [facility], [address] [place] [address] Emelia Soliman MD Reschedule 03/29/2025 Patient [facility] [address] [place] [phone] Amber Bradley, RN [facility] 03/27/2025 Scan [facility] [address] [place] [address] Scanned, Doc Pccl 03/22/2025 10:20 PM CDT - 03/25/2025 1:19 PM CDT Hospital Encounter [facility] [place] [address] Mary Beth Grey MD Elayyan, Ibrahim B, MD Suresh, Aditya Krishna, MD Duenas, Vincent J, MD Discharge Disposition: Home or [...] 0.6 oz pur e alcohol) [facility] Utilities Answer Date Recorded In the past 12 months has e [employer], [employer], oil, or water [employer] threatened to shut off services in your [...] time in the past 12 m [place], were you homeless or living in a usp (including now)? 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 Sex Female 5:53 PM WEIGHT LOSS COUNSELOR Gender Identity Female 03/22/2025 10:30 PM CDT [...] Info) Description 04/07/2025 8:30 AM CDT Appointment [facility] [address] [place] [address] Non-Staff, Provider Denice Rice PTA 04/07/2025 9:30 AM CDT Appointment [facility] [address] [place] [address] Emelia Soliman MD [address] [place] [address] Hilary Dang, OT [address] [place] [address] 04/07/2025 12:15 PM CDT Office Visit [facility] [place] [address] Ayah Hinson MD [address] [place] [address] 04/10/2025 10:00 AM CDT Appointment [facility] [address] [place] [address] Non-Staff, Provider Denice Rice, RECREATION OFFICER 04/13/2025 10:00 AM CDT Appointment [facility] [address] [place] [address] Non-Staff, Provider Denice Rice, RECREATION OFFICER 05/01/2025 7:40 AM CDT Office Visit [facility] Medical Group [facility] [address] [facility], [address] [place] [phone] Emelia Soliman MD [address] [place] [address] Health Maintenance Due Date Last Done Comments Hepatitis C 1965 DTaP, Tdap and Td Vaccines ( 1 - Tdap) 1966 Zoster Vaccines (1 of 2) 1997 Annual Medicare Wellness Visit 2012 RSV Immunization or 60+ Years (1 - 1-dose 75+ series) 2022 COVID-19 Vaccine (4 - 2023-2 5 season) 2024 09/26/2021, 03/11/2021, 02/10/2021 PHQ-2 (Physician [place]) 11/30/2024 Pneumococcal Vaccine: 50+ Years Completed 12/16/2021, [...] this topic Medical Devices Implanted Type Area Senior Net Programmer Device Identifier Shelf Expiration Date Model / Serial / Lot Iol Chris Reyes [id number] - [id number] Implanted:Qty: 1 on 01/14/2023 by Geetha Ahmadi MD at [facility] Lens Right: Eye [employer] [id number] 11/05/2025 DCB00 / [id number] / [id number] Left Eye Implant Lens Implanted:Qty: 1 on 12/17/2022 by Geetha Ahmadi MD at [facility] Left: Eye 09/30/2025 DCB00 / / [id number] Procedures Procedure Name Priority Date/Time Associated Diagnosis Comments ECG GENERIC (SCAN ORDER) Routine 04/03/2025 12:00 AM CDT PROTHROMBIN TIME, VENOUS Routine 03/25/2025 7:53 AM [...] Recently Relevant to Health Maintenance Results * ECG (04/03/2025 12:00 AM CDT) 04/03/2025 us Doc Pccl Scanned SCANNING Final Result [facility] ONBASE * (ABNORMAL) PROTIME/INR, VENOUS (03/25/2025 7:53 AM CDT) Only the most recent of2 resultswithin the time period is included. PROTIME 13.1(H) 10.2 - 12.9 SEC 03/25/2025 8:49 AM CDT [facility] INR 1.1 03/25/2025 8:49 AM CDT [facility] Comment: Recommended INR Therapeutic Goals: 2.0-3.0 Routine Therapy 2.5-3.5 Mechanical Prosthetic Valves (High Risk) 03/25/2025 7:53 AM CDT Darell Mahoney MD LABORATORY Final Result [facility] [address] [place] [address], [place] [phone] * (ABNORMAL) BASIC METABOLIC PANEL (03/25/2025 7:53 AM CDT) Only the most recent of3 resultswithin the time period is included. [facility] GLUCOSE 83 70 - 99 MG/DL 03/25/2025 8:38 AM T [facility] BUN 13 7 - 18 MG/DL 03/25/2025 8:38 AM T [facility] CREATININE S/P/B 0.58 0.55 - 1.02 MG/DL 03/25/2025 8:38 AM T [facility] SODIUM S/P/B 141 136 - 145 MMOL/L 03/25/2025 8:38 AM T [facility] POTASSIUM S/P/B 3.8 3.5 - 5.1 MMOL/L 03/25/2025 8:38 AM T [facility] CHLORIDE S/P/B 108 97 - 115 MMOL/L 03/25/2025 8:38 AM T [facility] CO2 25.7 21 - 32 MMOL/L 03/25/2025 8:38 AM T [facility] CALCIUM S/P/B 8.0(L) 8.5 - 10.1 MG/DL 03/25/2025 8:38 AM T [facility] ANION GAP 7.3 2 - 10 MMOL/L 03/25/2025 8:38 AM T [facility] BUN CREATININE RATIO 22.5 6 - 26 03/25/2025 8:38 AM T [facility] GFR ESTIMATE >90 >90 ML/MIN/1.7 3 M2 03/25/2025 8:38 AM T [facility] Comment: NOTE: eGFR is not calculated for patients <18 years of age or gender unknown. This is an estimated GFR calculation using the new CKD EPI creatinine equation without race and so does not require a correction factor for race. This estimated GFR should not be used for calculating drug doses. 03/25/2025 7:53 AM CDT Gifty Mayfield MD LABORATORY Final Result [facility] [address] [place] [address], * CBC, AUTO, NO DIFF (03/25/2025 7:53 AM CDT) Only the most recent of2 resultswithin the time period is included. WBC 9.30 4.5 - 11.0 x10'3/uL 03/25/2025 8:30 AM CDT [facility] RBC 4.56 4.20 - 5.40 x10'6/uL 03/25/2025 8:30 AM CDT [facility] HGB 13.7 12.0 - 16.0 G/DL 03/25/2025 8:30 AM CDT [facility] HCT 42.2 38.0 - 48.0 % 03/25/2025 8:30 AM CDT [facility] MCV 92.5 81.0 - 99.0 FL 03/25/2025 8:30 AM CDT [facility] MCH 30.0 27.0 - 31.0 PG 03/25/2025 8:30 AM CDT [facility] MCHC 32.5 32.0 - 36.0 G/DL 03/25/2025 8:30 AM CDT [facility] RDW 13.6 11.5 - 14.5 % 03/25/2025 8:30 AM CDT [facility] PLT 308 130 - 400 x10'3/uL 03/25/2025 8:30 AM CDT [facility] MPV 11.1 9.3 - 12.2 FL 03/25/2025 8:30 AM CDT [facility] 03/25/2025 7:53 AM CDT Gifty Mayfield MD LABORATORY Final Result Performing Organization Address City/[facility]/ZIP Co de Phone Number [facility] [address] [place] [address], [place] [phone] * POCT glucose (03/24/2025 10:54 AM CDT) Only the most recent of2 resultswithin the time period is included. GLUCOSE POC 79 70 - 99 mg/dL 03/24/2025 12:30 PM CDT [facility] 03/24/2025 10:5 4 AM CDT Darell Mahoney MD POCT ORDERABLES - DEVICE Fin al Result Performing Organization Address City/[facility] Co de Phone Number [facility] [address] [place] [address], [place] [phone] * USV CAROTID DUPLEX EDWARD (03/24/2025 9:10 AM CDT) Anatomical Region Laterality Modality Neck Vascular Ultraso und 03/24/2025 8:47 AM CDT Narrative 03/24/2025 11:09 AM CDT CAROTID ARTERY DUPLEX IMAGING VASCULAR LAB Pat.Name: LEIF BRANCH MA Pat.ID: [id number] .Date: 03/24/2025 Refer.MD: Salvador Ivy Exam Time: 8:47:00 AM Study Type:EUN VS Duplex Carotid BI Height: 60 in Age: 2 1945,80Y Sex: F Sonogrphr: Terrell Paige, RVT Procedures: Guajardo scale, Color Doppler imaging, [...] VASCULAR LAB Pat.Name: LEIF BRANCH MARLEEN Pat.ID: [id number] St.Date: 03/24/2025 Refer.MD: Salvador Ivy Exam Time: 8:47:00 AM Study Type:EUN VS Duplex Carotid BI Height: 60 in Age: 2 1945,80Y Sex: F Sonogrphr: Terrell Paige, KILEY Procedures: Guajardo scale, Color Doppler imaging, Doppler [...] AM Alyce Allred M.D. Emelia Soliman MD [facility] Final Re sult * USE ECHOCARDIOGRAM (03/24/2025 9:01 AM CDT) Anatomical Region Laterality Modality Cardiac Echocardiogram 03/24/2025 7:59 AM CDT Narrative 03/24/2025 12:31 PM CDT Echocardiography Report Pat.Name: LEIF BRANCH MA Pat.ID: [id number] .Date: 03/24/2025 : [id number] PAXTON JOI A EWDPROV EWDPROV Exam Time: 7:59:00 AM Study Type:ECHO WITH CARDIAC DOPPLER COMP Height: 60 in Weight: 129 lb BSA: 1.55 m2 Age: 2 1945,80Y Sex: F BP: 140/88 HR: 96 bpm Sonogrphr: Daphnie Correa Pat. Stat.:Inpatient Room: [facility] Reason for Study:Atrial fibrillation / flutter [...] Composite heart 113 bpm Mitral Valve Decel Swift 800 cm/s2 HR 114 bpm Pulmonic Valve [...] Left Atrium LA VOLBP 70.4 ml [place] (Sys 6.12 cm Mace Disk Nu 9 [place] (Sys 7.11 cm Ratios IVS Ventricular Septum IVSd 1.38 cm Aorta AO Ds 3.31 cm Ascending Aorti 2.71 cm LV Area-Length Biplane LVEDV 62 ml LVESV 20.3 ml LV Area-Length Single Plane LVEDV 73.1 ml LVESV 22.3 ml LVEDV 52.8 ml LVESV 19 ml LVOT LVOTArea 3.2 cm2 Cardiovascular 2.02 cm Right Atrium [place] (Sys 4.87 cm Mace Disk Nu 9 HR 111 bpm RA Area-Length Single Plane Volume (Systole 11.5 ml/m2 RA Single Plane RA sys Area 10.1 cm2 Volume (Systole 18.3 ml Right Ventricle [place] (Pili 5.8 cm [place] (Pili 3.21 cm HR 91 bpm TA [...] - 03/24/2025 Echocardiography Report Pat.Name: LEIF BRANCH MA Pat.ID: [id number] .Date: 03/24/2025 : [id number] PAXTON TAMEZ Jayme EWDPROV EWDPROV Exam Time: 7:59:00 AM Study Type:ECHO WITH CARDIAC DOPPLER COMP Height: 60 in Weight: 129 lb BSA: 1.55 m2 Age: 2 1945,80Y Sex: F BP: 140/88 HR: 96 bpm Sonogrphr: Daphnie Correa Pat. Stat.:Inpatient Room: [facility] Reason for Study:Atrial fibrillation / flutter [...] Composite heart 113 bpm Mitral Valve Decel Swift 800 cm/s2 HR 114 bpm Pulmonic Valve [...] Left Atrium LA VOLBP 70.4 ml [place] (Sys 6.12 cm Mace Disk Nu 9 [place] (Sys 7.11 cm Ratios IVS Ventricular Septum IVSd 1.38 cm Aorta AO Ds 3.31 cm Ascending Aorti 2.71 cm LV Area-Length Biplane LVEDV 62 ml LVESV 20.3 ml LV Area-Length Single Plane LVEDV 73.1 ml LVESV 22.3 ml LVEDV 52.8 ml LVESV 19 ml LVOT LVOTArea 3.2 cm2 Cardiovascular 2.02 cm Right Atrium [place] (Sys 4.87 cm Mace Disk Nu 9 HR 111 bpm RA Area-Length Single Plane Volume (Systole 11.5 ml/m2 RA Single Plane RA sys Area 10.1 cm2 Volume (Systole 18.3 ml Right Ventricle [place] (Pili 5.8 cm [place] (Pili 3.21 cm HR 91 bpm TA [...] - 0.70 IU/ML 03/24/2025 8:34 AM CDT [facility] Comment: UFH Therapeutic Anti Xa Ranges: Medical Therapeutic Range: 0.30 - 0.70 IU/mL Cardiac Therapeutic Range: 0.30 - 0.50 IU/mL Neuro Therapeutic Range: 0.20 - 0.40 IU/mL 03/24/2025 7:05 AM CDT Kevin Maguire MD LABORATORY Final R esult [facility] [address] [place] [address], * (ABNORMAL) LIPID PANEL (03/24/2025 7:05 AM CDT) Only the most recent of2 resultswithin the time period is included. CHOLESTEROL 200(H) <200 MG/DL 03/24/2025 7:47 AM CDT [facility] TRIGLYCERIDES 111 <150 MG/DL 03/24/2025 7:47 AM CDT [facility] HDL 57 >40.0 MG/DL 03/24/2025 7:47 AM CDT [facility] LDL (CALCULATED) 121(H) <100 MG/DL 03/24/2025 7:47 AM CDT [facility] NON HDL CHOLESTEROL 143(H) <130 MG/DL 03/24/2025 7:47 AM CDT [facility] CHOL/HDL RATIO 3.5 0.0 - 4.5 03/24/2025 7:47 AM CDT [facility] VLDL CALCULATION 22 5 - 55 MG/DL 03/24/2025 7:47 AM CDT [facility] LIPID INTERPRETATION 03/24/2025 7:47 AM CDT [facility] Comment: [facility] CONCENSUS REPORT RECOMMENDATIONS: ADULT CHILD LOW RISK: CHOLESTEROL <200 <170 TRIGLYCERIDE <150 --- HDL >=60 --- LDL <100 <110 BORDERLINE: CHOLESTEROL 200-239 170-199 TRIGLYCERIDE 150-199 --- HDL 40-59 --- LDL 100-159 110-129 HIGH RISK: CHOLESTEROL >=240 >=200 TRIGLYCERIDE >=200 --- HDL <40 --- LDL >=160 >=130 03/24/2025 7:05 AM CDT Gifty Mayfield MD LABORATORY Final Result Performing Organization Address City/[facility] Co de Phone Number [facility] [address] [place] [address], [place] [phone] * (ABNORMAL) POCT ACTIVATED CLOTTING TIME - ISTAT DOCKED DEVICE (03/23/2025 3:38 PM CDT) Only the most recent of2 resultswithin the time period is included. ACTIVATED CLOTTING TIME (ACT) 186(H) 74 - 125 SEC 03/24/2025 9:00 AM CDT [facility] CITRUS FRUIT COLORER CODE 121,731 03/24/2025 9:00 AM CDT [facility] 03/23/2025 3:38 PM CDT Darell Mahoney MD POCT ORDERABLES - DEVICE Fin al Result Performing Organization Address City/[facility]/ZIP Co de Phone Number [facility] [address] [place] [address], [place] [phone] * XA [facility] (03/23/2025 3:19 PM CDT) Anatomical Region Laterality Modality Cardiac Customer Engineering Specialist 03/23/2025 4:30 PM CDT Salazar Man MD CLINICAL NURSE Final Res ult * (ABNORMAL) TROPONIN, QUANT (03/23/2025 11:51 AM CDT) Only the most recent of2 resultswithin the time period is included. TROPONIN I HIGH SENSITIVITY 1,844(HH) <54 ng/L 03/23/2025 12:44 PM CDT [facility] Comment: NOT CALLED PER CRITICAL VALUE POLICY HIGH DOSES OF BIOTIN, TROPONIN-SPECIFIC AUTOANTIBODIES, AND ANTIBODY THERAPY CONTAINING HAMA MAY INTERFERE WITH THIS TEST RESULT. CORRELATION TO CLINICAL HISTORY AND PRESENTATION RECOMMENDED. 03/23/2025 11:5 1 AM CDT us Jeremy Navarrete MD LABORATORY Final Resul t [facility] [address] [place] [address], * MRI BRAIN WO CON (03/23/2025 11:33 [...] 12:51 PM Narrative 03/23/2025 12:56 PM CDT [facility] [address] [place], [place] [address] DATE: 03/23/2025 11:11 AM INDICATION: Stroke. Right [...] Procedure Note Jeremiah Matthews MD - 03/23/[address] [address] DATE: 03/23/2025 11:11 AM INDICATION: Stroke. Right [...] 5.5 <5.7 % 03/23/2025 12:17 PM CDT [facility] Comment: ADA GUIDELINES 2010 5.7 TO 6.4% INCREASED RISK OF DIABETES > OR = 6.5% CONSISTENT WITH DIABETES ESTIMATED AVG GLUCOSE 111 mg/dL 03/23/2025 12:17 PM CDT [facility] 03/23/2025 7:01 AM CDT Jeremy Navarrete MD LABORATORY Final Resul t [facility] [address] [place] [address], [place] [phone] * CBC W/DIFF AUTOMATED (03/23/2025 7:01 AM CDT) WBC 7.93 4.5 - 11.0 x10'3/uL 03/23/2025 10:23 AM CDT [facility] RBC 4.58 4.20 - 5.40 x10'6/uL 03/23/2025 10:23 AM CDT [facility] HGB 13.8 12.0 - 16.0 G/DL 03/23/2025 10:23 AM CDT [facility] HCT 41.9 38.0 - 48.0 % 03/23/2025 10:23 AM CDT [facility] MCV 91.5 81.0 - 99.0 FL 03/23/2025 10:23 AM CDT [facility] MCH 30.1 27.0 - 31.0 PG 03/23/2025 10:23 AM CDT [facility] MCHC 32.9 32.0 - 36.0 G/DL 03/23/2025 10:23 AM CDT [facility] RDW 13.8 11.5 - 14.5 % 03/23/2025 10:23 AM CDT [facility] PLT 298 130 - 400 x10'3/uL 03/23/2025 10:23 AM CDT [facility] MPV 11.4 9.3 - 12.2 FL 03/23/2025 10:23 AM CDT [facility] DIFFERENTIAL TYPE AUTOMATED DIFFERENTIAL 03/23/2025 10:23 AM CDT [facility] NEUTROPHILS % 63.9 % 03/23/2025 10:23 AM CDT [facility] LYMPHOCYTES % 21.2 % 03/23/2025 10:23 AM CDT [facility] MONOCYTES % 9.2 % 03/23/2025 10:23 AM CDT [facility] EOSINOPHILS 4.3 % 03/23/2025 10:23 AM CDT [facility] BASOPHILS 0.9 % 03/23/2025 10:23 AM CDT [facility] IMMATURE GRANS % 0.5 % 03/23/20 10:23 AM CDT [facility] ABS. NEUTROPHILS 5.07 1.80 - 7.70 x10'3/uL 03/23/2025 10:23 AM CDT [facility] ABS. LYMPHOCYTES 1.68 1.00 - 4.80 x10'3/uL 03/23/2025 10:23 AM CDT [facility] ABS. MONOCYTES 0.73 0.24 - 0.86 x10'3/uL 03/23/2025 10:23 AM CDT [facility] ABS. EOSINOPHILS 0.34 0.04 - 0.36 x10'3/uL 03/23/2025 10:23 AM CDT [facility] ABS. BASOPHILS 0.07 0.01 - 0.08 x10'3/uL 03/23/2025 10:23 AM CDT [facility] ABS. IMMATURE GRANULOCYTES 0.04 0.00 - 0.49 x10'3/uL 03/23/2025 10:23 AM CDT [facility] 03/23/2025 7:01 AM CDT Jeremy Navarrete MD LABORATORY Final Resul t [facility] [address] [place] [address], [place] [phone] * THYROID STIM HORMONE, TSH (03/23/2025 7:01 AM CDT) TSH 0.701 0.358 - 3.74 uIU/ML 03/23/2025 7:56 AM CDT [facility] Comment: HIGH DOSES OF BIOTIN MAY INTERFERE WITH THIS TEST RESULT. CORRELATION TO CLINICAL HISTORY AND PRESENTATION RECOMMENDED. 03/23/2025 7:01 AM CDT Jeremy Navarrete MD LABORATORY Final Resul t [facility] [address] [place] [address], [place] [phone] * MAGNESIUM (03/23/2025 7:01 AM CDT) MAGNESIUM 2.2 1.8 - 2.4 MG/DL 03/23/2025 7:56 AM CDT [facility] 03/23/2025 7:01 AM CDT Jeremy Navarrete MD LABORATORY Final Resul t [facility] [address] [place] [address], * BONE DENSITY/DEXA (08/31/2023 2:51 PM CDT) [...] Recently Relevant to Health Maintenance Insurance MEDICARE [employer] Advance Directives * Full Code (Latest Code Status on File) Date Activated Date Inactivated Comments 03/23/2025 4:07 PM 03/25/2025 3:19 PM * Full Code Date Activated Date Inactivated Comments 03/22/2025 10:36 PM 03/23/2025 4:07 PM * Full Code Date Activated Date Inactivated Comments 01/14/2023 2:37 PM 01/14/2023 5:19 PM Care Teams Operating Systems Programmer Relationship Specialty Start Date End Date Linda Rios FNP [address] [place] [address] PCP - General Nurse Practitioner Family 03/29/25 Emelia Soliman MD [address] [place] [address] Consulting Physician NEUROLOGY 03/23/25 03/23/26 Amber Bradley, RN Registered Nurse CARE MANAGEMENT 03/29/25
--- OUTSIDE RECORDS SUMMARY | 2025-04-06 09:40 | XMS_ITS | Encounter Summary ---
Author Organization [facility] Address [address] [place] [address] Care Team Providers Care Spotter Driver Name Role Phone Emelia Soliman MD Unavailable [phone] Linda Rios Primary Care Provider [phone] Amber Bradley RN Unavailable Unavailable Reason for Visit * Reason Comments ECG (SCAN) Encounter Details Date Type Department Care Team ([facility] st Contact Info) Description 04/03/2025 [facility] [address] [place] [address] Scanned, Doc Pccl ECG (SCAN) Social History Tobacco Use Types Packs/Day Years Used Date Smoking Tobacco: Never Smokeless Tobacco: Never Alcohol Use Standard Drinks/Week Comments Not Currently 0 (1 standard drink = 0.6 oz pur e alcohol) [facility] Utilities Answer Date Recorded In the past 12 months has e [employer], gas, oil, or water [employer] threatened to shut off services in your [...] any time in the past [address] [facility], were you homeless or living in a senior care (including now)? 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 Sex Female 5:[address] Gender Identity Female 03/22/2025 10:30 PM CDT Sexual Orientation Straight 03/22/2025 10 :30 PM CDT documented as of this encounter Functional Status * Are you deaf or do you have serious difficulty hearing Answer Date of Assessment Author Status No 03/22/2025 10:22 PM CDT Jd Perez, RN Active * Are you blind or do you have serious difficulty seeing, even when wearing glasses? Answer Date of Assessment Author Status No 03/22/2025 10:22 PM CDT Jd Perez, RN Active * Do you have serious difficulty walking or climbing stairs? Answer Date of Assessment Author Status No 03/22/2025 10:22 PM CDT Jd Perez RN Active * Do you have difficulty dressing or bathing? Answer Date of Assessment Author Status No 03/22/2025 10:22 PM CDT Jd Perez RN Active * Because of a physical, mental, or emotional condition, do you have difficulty doing errands alone such as visiting a doctor's office or shopping? Answer Date of Assessment Author Status No 03/22/2025 10:22 PM CDT Jd Perez RN Active documented as of this encounter Mental Status * Because of a physical, mental, or emotional condition, do you have serious difficulty concentrating, remembering, or making decisions? Answer Entry Date Author Status No 03/22/2025 10:22 PM CDT Jd Perez RN Active documented in this encounter Plan of Treatment Upcoming Encounters Date Type Department Care Team (Late st Contact Info) Description 04/07/2025 8:30 AM CDT Appointment [facility] [address] [place] [address] Non-Staff, Provider Denice Rice PTA 04/07/2025 9:30 AM CDT Appointment [facility] [address] [place] [address] Emelia Soliman MD [address] [place] [address] Hilary Dang, OT [address] [place] [address] 04/07/2025 12:15 PM CDT Office Visit [facility] [place] [phone] Ayah Hinson MD [address] [place] [address] 04/10/2025 10:00 AM CDT Appointment [facility] [address] [place] [address] Non-Staff, Provider Denice Rice, NHI 04/13/2025 10:00 AM CDT Appointment [facility] [address] [place] [address] Non-Staff, Provider Denice Rice, SOLE INKER 05/01/2025 7:40 AM CDT Office Visit [facility] Medical Group Multispecialty Care - [facility] [address] [facility], [address] [place] [address] Emelia Soliman MD [address] [place] [address] documented as of this encounter Procedures Procedure Name Priority Date/Time Associated Diagnosis Comments ECG GENERIC (SCAN ORDER) Routine 04/03/2025 12:00 AM CDT documented in this encounter Results * ECG (04/03/2025 12:00 AM CDT) 04/03/2025 us Doc Pccl Scanned SCANNING Final Result [facility] documented in this encounter Visit Diagnoses Not on filedocumented in this encounter Care Teams Spotter Driver Relationship Specialty Start Date End Date Linda Rios FNP [address] [place] [phone] PCP - General Nurse Practitioner Family 03/29/25 Emelia Soliman MD [address] [place] [address] Consulting Physician NEUROLOGY 03/23/25 03/23/26 Amber Bradley, RN Registered Nurse CARE MANAGEMENT 03/29/25 documented as of this encounter
--- OUTSIDE RECORDS SUMMARY | 2025-04-06 09:40 | XMS_ITS | Encounter Summary ---
Author Organization [facility] Address [address] [place] [address] Care Team Providers Care Vendor Management Associate Name Role Phone Emelia Soliman MD Unavailable [phone] Linda Rios Primary Care Provider Amber Bradley RN Unavailable Unavailable Encounter Details Date Type Department Care Team (Late st Contact Info) Description 04/05/2025 Abstract [facility] [address] [place] [phone] Abstract, Doc Pccl Social History Tobacco Use Types Packs/Day Years Used Date Smoking Tobacco: Never Smokeless Tobacco: Never Alcohol Use Standard Drinks/Week Comments Not Currently 0 (1 standard drink = 0.6 oz pur e alcohol) [facility] Utilities Answer Date Recorded In the past 12 months has e [employer], gas, oil, or water [employer] threatened to shut off services in your [...] any time in the past 12 m [facility], were you homeless or living in a chcf (including now)? 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 Gender Identity Female 03/22/2025 10:30 PM CDT [...] Info) Description 04/07/2025 8:30 AM CDT Appointment [facility] [address] [place] [address] Non-Staff, Provider Denice Rice PTA 04/07/2025 9:30 AM CDT Appointment [facility] [address] [place] [address] Emelia Soliman MD [address] [place] [address] Hilary Dang, OT [address] [place] [address] 04/07/2025 12:15 PM CDT Office Visit [facility] [place] [phone] Ayah Hinson MD [address] [place] [address] 04/10/2025 10:00 AM CDT [facility]ment [facility] [address] [place] [address] Non-Staff, Provider Denice Rice PTA 04/13/2025 10:00 AM CDT Appointment [facility] [address] [place] [address] Non-Staff, Provider Denice Rice PTA 05/01/2025 7:40 AM CDT Office Visit [facility] Medical Group Multispecialty Care - [facility] [address] [facility], [address] [place] [address] Emelia Soliman MD [address] [place] [address] documented as of this encounter Visit Diagnoses Not on filedocumented in this encounter Care Teams Vendor Management Associate Relationship Specialty Start Date End Date Linda Rios FNP [address] [place] [phone] PCP - General Nurse Practitioner Family 03/29/25 Emelia Soliman MD [address] [place] [address] Consulting Physician NEUROLOGY 03/23/25 03/23/26 Amber Bradley, RN Registered Nurse CARE MANAGEMENT 03/29/25 documented as of this encounter
--- OUTSIDE RECORDS SUMMARY | 2025-04-06 09:40 | XMS_ITS | Encounter Summary ---
Author Organization [facility] Address [address] [place] [address] Care Team Providers Care Tea Tree Farmer Name Role Phone Salvador Ramírez MD Primary Care Provider [phone] Emelia Soliman MD Unavailable [phone] Linda Rios Primary Care Provider [phone] Amber Bradley RN Unavailable Unavailable Encounter Details Date Type Department Care Team (Late st Contact Info) Description 03/27/2025 Scan [facility] [address] [place] [address] Scanned, Doc Pccl Social History Tobacco Use Types Packs/Day Years Used Date Smoking Tobacco: Never Smokeless Tobacco: Never Alcohol Use Standard Drinks/Week Comments Not Currently 0 (1 standard drink = 0.6 oz pur e alcohol) [facility] Utilities Answer Date Recorded In the past 12 months has e electric, gas, oil, or water [employer] threatened to shut off services in your [...] any time in the past 12 m [facility], were you homeless or living in a snf (including now)? 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 Sex Female 5:53 PM MECHANIC'S ASSISTANT Gender Identity Female 03/22/2025 10:30 PM CDT [...] Perez, RN Active * Do you have difficulty dressing or bathing? Answer Date of Assessment Author Status No 03/22/2025 10:22 PM CDT Jd Perez, RN Active * Because of a physical, [...] Info) Description 04/07/2025 8:30 AM CDT Appointment [facility] [address] [place] [address] Non-Staff, Provider Denice Rice PTA 04/07/2025 9:30 AM CDT Appointment [facility] [address] [place] [address] Emelia Soliman MD [address] [place] [address] Hilary Dang, OT [address] [place] [address] 04/07/2025 12:15 PM CDT Office Visit [facility] [place] [phone] Ayah Hinson MD [address] [place] [address] 04/10/2025 10:00 AM CDT Appointment [facility] [address] [place] [address] Non-Staff, Provider Denice Rice, FUNERAL LOCATION MANAGER 04/13/2025 10:00 AM CDT Appointment [facility] [address] [place] [address] Non-Staff, Provider Denice Rice, FUNERAL LOCATION MANAGER 05/01/2025 7:40 AM CDT Office Visit [facility] Medical [facility] Care - [facility] [address] [facility], [address] [place] [address] Emelia Soliman MD [address] [place] [address] documented as of this encounter Visit Diagnoses Not on filedocumented in this encounter Care Teams Tea Tree Farmer Relationship Specialty Start Date End Date Salvador Ramírez MD [address] [place] [phone] PCP - General FAMILY PRACTICE 09/20/19 03/28/25 Linda Rios FNP [address] [place] [phone] PCP - General Nurse Practitioner Family 03/29/25 Emelia Soliman MD [address] [place] [address] Consulting Physician NEUROLOGY 03/23/25 03/23/26 Amber Bradley, RN Registered Nurse CARE MANAGEMENT 03/29/25 documented as of this encounter
[2025-04-06 09:59] LABS: INR 1.8; Prothrombin Time 18.9 Seconds (9.50-12.1)
== END 2025-04-06 09:21 | disposition home or self-care (01) ==
PROVIDERS: PCP Family Medicine; Visit Provider Nurse Practitioner Family
DX: Z79.01 Long term (current) use of anticoagulants (principal); I48.91 Unspecified atrial fibrillation; R94.31 Abnormal electrocardiogram [ECG] [EKG]
CPT/HCPCS: 36415; 85610; 93005

== ENCOUNTER 2025-04-12 09:16 | Outpatient (CLI) | payer MEDICARE, SELFPAY ==
--- OUTSIDE RECORDS SUMMARY | 2025-04-12 09:20 | XMS_ITS | Encounter Summary ---
Author Organization [facility] Address [facility] [place] [address] Care Team Providers Care Hydrotreater Operator Name Role Phone Emelia Soliman MD Unavailable [phone] Linda Rios Primary Care Provider [phone] Amber Bradley RN Unavailable Unavailable Ayah Hinson MD Unavailable Reason for Visit * Occupational Therapy (Routine) - Authorized Specialty Diagnoses / Procedures Referred By Ermias khanna Referred To Contact Occupational Therapy / [facility] Occupational Therapy Diagnoses Evaluate and Treat for Acute Stroke Procedures EVAL Non-Staff, Provider Hilary Dang, OT [address] [place] [address] Phone: tel: fax: Referral ID Status Reason Start Date Expiration Date Visits Requested Visits Authorized [id number] Authorized Occupational Therapy 04/07/2025 20 20 Encounter Details Date Type Department Care Team (Late st Contact Info) Description 04/10/2025 11:02 AM CDT - 04/10/2025 11:[address] [facility] Hospital Encounter [facility] [address] [place] [address] Radha Escamilla, PT [address] [place] [address] Non-Staff, Provider Hilary Dang, OT [address] [place], [place] [phone] Discharge Disposition: Home or Self Care (Routine Discharge) Social History Tobacco Use Types Packs/Day Years Used Date Smoking Tobacco: Never Smokeless Tobacco: Never Alcohol Use Standard Drinks/Week Comments Not Currently 0 (1 standard drink = 0.6 oz pur e alcohol) [facility] Utilities Answer Date Recorded In the past 12 months has th e electric, gas, oil, or water company [...] any time in the past 12 m [facility], were you homeless or living in a mcc (including now)? 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 Answer Date of Assessment Author Status No 03/22/2025 10:22 PM DEXTERT Jd Perez RN Active * Do you have serious difficulty walking or climbing stairs? Answer Date of Assessment Author Status No 03/22/2025 10:22 PM DEXTERT Jd Perez RN Active * Do you have difficulty dressing or bathing? Answer Date of Assessment Author Status No 03/22/2025 10:22 PM CDT Jd Perez RN Active * Because of a physical, mental, or emotional condition, do you have difficulty doing errands alone such as visiting a doctor's office or shopping? Answer Date of Assessment Author Status No 03/22/2025 10:22 PM DEXTERT Jd Perez RN Active documented as of this encounter Mental Status * Because of a physical, mental, or emotional condition, do you have serious difficulty concentrating, remembering, or making decisions? Answer Entry Date Author Status No 03/22/2025 10:22 PM Jd Gutierrez RN Active documented in this encounter Medications at Time of Discharge atorvastatin (LIPITOR) 80 MG tabletIndications :Cerebrovascular accident (CVA), unspecified mechanism (CMS/HCC [facility]) Take 1 tablet (80 mg total) by mouth nightly at bedtime. 30 tablet 03/25/2025 metoprolol succinate ER (TOPROL-XL) 100 MG 24 hr tablet Take 1 tablet (100 mg total) by mouth 2 (two) times daily for 30 days. 60 tablet 03/25/2025 04/24/2025 multi vitamin/minerals (THERA-M ENHANCED) tablet Take 1 tablet by mouth daily. nitroglycerin (NITROSTAT) 0.[address] 1 tablet (0.4 mg total) under the tongue every 5 (five) minutes as needed for Chest Pain. 30 tablet 03/25/2025 documented as of this encounter Progress Notes * Hilary Dang, OT - 04/10/2025 11:15 AM CDT OCCUPATIONAL THERAPY OUTPATIENT INITIAL EVALUATION Time In: 1108 Time Out: 1201 Total Time: 53 Date: 04/10/25 Name: Nkechi Negron : 1945 Subjective: Pt reports she had a mild stroke about three weeks ago around the same time she unfortunately lost her . Pt reports weakness in right hand, she is right hand dominant. She reports she gets easily frustrated when doing stuff at home when her right hand isn't cooperating. Diagnosis: Stroke Referring Physician: LAURA Lino Onset Date: three weeks ago Mechanism Of Injury: Stroke Prior Treatment For Diagnosis: None Return to MD: TBD Location of Pain: no pain Patient Goals: To increase coordination, increase strength, make the bed, buttoning shirt, tying shoes Objective: Sensation intact throughout RUE FM coordination appears intact Coordinator Of Placement strength R: 45 lbs Coordinator Of Placement strength L: 50lbs Pinch strength R: 12lbs Pinch strength L: 14lbs MMT RUE: 5/5 throughout except R wrist flexion 4-/5 WRIST AROM (PROM) RIGHT Flexion (80Â°) 70Â° Extension (70Â°) 60Â° Education Performed: Pt educated on HEP, use of theraputty, FM skills, GM skills, neuro re-training, visualization, and therapy plan of care Treatment Performed: Evaluation: 15 Therapeutic Exercise 24565: Time: 25 -Yellow putty composite fists -Shoulder flexion -Shoulder abduction -Shoulder extension -Elbow flexion -Elbow extension -Forearm supination -Forearm pronation -Wrist flexion -Wrist extension -Opposition 1-5th digit Therapeutic Activity 33170: Time: 13 -Resistance clothespins off board 1 minute 5 seconds -Resistance clothespins on board 1 minute 32 seconds -Pegs to pegboard with tongs x25 -R hand marble/bead retrieval from yellow putty -Reaction time with marbles rolling and picking them up -R handwriting alphabet activity Assessment Assessment/Impressions: Nkechi Negron is a 80-year-old female who presents with a primary complaint of R hand weakness. Patient is demonstrating deficits in Strength, leading to decreased function and independence with ADL and IADL care. Skilled therapy is appropriate at this time to address these impairments and to move the patient towards their goal of independence and improved strength with RUE. Rehab Potential: GOOD Personal Factors/Co-Morbidities Affecting Care: None Examination of Body Systems: Low (1-2) Clinical Presentation of Patient: Stable Uncomplicated Eval Complexity: Low PLAN: OT Plan for next visit: Continue AROM, FM/GM training, and strengthening Treatment/Interventions: Therapeutic Exercise - 72802 and Therapeutic Activity - 50618 Frequency: 2x/week Duration: 12 Visits GOALS: Patient will be independent with HEP in 5 session Patient will increase R wrist flexion by 10 degrees to increase function and independence with ADLs Patient will increase R wrist extension by 10 degrees to increase function and independence with ADLs Patient will increase R wrist flexion to 5/5 to increase function and independence with IADLs Pt with increase RUE public health clinical nurse specialist strength by 5 lbs to increase strength and function for ADL care Pt with increase RUE pinch strength by 2 lbs to increase strength and function for ADL care Pt will demonstrate increased reaction time and FM skills during therapeutic activities to improve function and independence for IADL care at home Pt will increase fine/gross motor coordination of R UE with completion of ADL simulated tasks and motor control activities to increase her safety and independence with ADLs and IADLs documented in this encounter Plan of Treatment Upcoming Encounters Date Type Department Care Team (Late st Contact Info) Description 04/13/2025 10:00 AM CDT Appointment [facility] [address] [place] [address] Non-Staff, Provider Denice Rice PTA 04/13/2025 11:15 AM CDT Appointment [facility] [address] [place] [address] Linda Rios, [address] [phone] Val Santillan COTA 04/17/2025 10:15 AM CDT Appointment [facility] [address] [place] [address] Radha Escamilla, PT [address] [place] [address] Non-Staff, Provider Denice Rice, BOOKING MANAGER 04/17/2025 11:00 AM CDT Appointment [facility] [address] [place] [address] [address] [phone] Hilary Dang, OT [address] [place] [address] 04/20/2025 10:00 AM CDT Appointment [facility] [address] [place] [address] Radha Escamilla, PT [address] [place] [address] Non-Staff, Provider Denice Rice, BOOKING MANAGER 04/20/2025 11:00 AM CDT Appointment [facility] [address] [place] [address] Linda [address] [phone] Hilary Dang, OT [address] [place] [address] 05/01/2025 7:40 AM CDT Office Visit [facility] Medical Group Multispecialty Care - [facility] [address] [facility], [address] [place] [address] Emelia Soliman MD [address] [place] [address] 11/01/2025 11:00 AM FLUX PLANT OPERATOR Office Visit [facility] [place] [phone] Ayah Hinson MD [address] [place], [place] [phone] documented as of this encounter Visit Diagnoses Diagnosis CVA (cerebral vascular accident) ([facility]) [I63.9]- Primary Unspecified cerebral artery occlusion with cerebral infarction documented in this encounter Care Teams Hydrotreater Operator Relationship Specialty Start Date End Date Linda Rios FNP [address] [place] [phone] PCP - General Nurse Practitioner Family 03/29/25 Emelia Soliman MD [address] [place] [address] Consulting Physician NEUROLOGY 03/23/25 03/23/26 Amber Bradley, RN Registered Nurse CARE MANAGEMENT 03/29/25 Ayah Hinson MD [address] [place] [address] Consulting Physician CARDIOVASCULAR DISEASE 04/07/25 documented as of this encounter
--- OUTSIDE RECORDS SUMMARY | 2025-04-12 09:20 | XMS_ITS | Encounter Summary ---
Author Organization [facility] Address [address] [place] [address] Care Team Providers Care Public Safety Dispatcher Name Role Phone Emelia Soliman MD Unavailable [phone] Linda Rios Primary Care Provider [phone] Amber Bradley RN Unavailable Unavailable Ayah Hinson MD Unavailable Reason for Visit * Reason Comments ECG (SCAN) Encounter Details Date Type Department Care Team (Late st Contact Info) Description 04/03/2025 [facility] [address] [place] [address] Scanned, Doc Pccl ECG (SCAN) Social History Tobacco Use Types Packs/Day Years Used Date Smoking Tobacco: Never Smokeless Tobacco: Never Alcohol Use Standard Drinks/Week Comments Not Currently 0 (1 standard drink = 0.6 oz pur e alcohol) [facility] Utilities Answer Date Recorded In the past 12 months has [facility] [employer], gas, oil, or water [employer] threatened to shut off services in your [...] time in the past 12 m [facility], were you homeless or living in a fdc (including now)? 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 Gender Identity Female 03/22/2025 10:30 PM CDT [...] PM DEXTERT Jd Perez RN Active * Because of [...] Date Author Status No 03/22/2025 10:22 PM DEXTERT Jd Perez RN Active documented in this encounter Plan of Treatment Upcoming Encounters Date Type Department Care Team (Late st Contact Info) Description 04/13/2025 10:00 AM CDT Appointment [facility] [address] [place] [address] Non-Staff, Provider Denice Rice, SCREWHEAD POLISHER 04/13/2025 11:15 AM CDT Appointment [facility] [address] [place] [address] Linda Rios, [address] [phone] Val Santillan COTA 04/17/2025 10:15 AM CDT Appointment [facility] [address] [place] [address] Radha Escamilla, PT [address] [place] [address] Non-Staff, Provider Denice Rice, SCREWHEAD POLISHER 04/17/2025 11:00 AM CDT Appointment [facility] [address] [place] [address] Linda Rios, [address] [address] Hilary Dang, OT [address] [place] [address] 04/20/2025 10:00 AM CDT Appointment [facility] [address] [place] [address] Radha Escamilla, PT [address] [place] [address] Non-Staff, Provider Denice Rice PTA 04/20/2025 11:00 AM CDT Appointment [facility] [address] [place] [address] Linda Rios, EDITOR IN CHIEF NEWSPAPER [address] [place] [phone] Hilary Dang, OT [address] [place] [address] 05/01/2025 7:40 AM CDT Office Visit [facility] Medical Group Multispecialty Care - [address], [address] [place] [phone] Emelia Soliman MD [address] [place] [address] 11/01/2025 11:00 AM FACT CHECKER Office Visit [facility] [place] [phone] Ayah Hinson MD [address] [place] [address] documented as of this encounter Procedures Procedure Name Priority Date/Time Associated Diagnosis Comments ECG GENERIC (SCAN ORDER) Routine 04/03/2025 12:00 AM CDT documented in this encounter Results * ECG (04/03/2025 12:00 AM CDT) 04/03/2025 us Doc Pccl Scanned SCANNING Final Result [facility] documented in this encounter Visit Diagnoses Not on filedocumented in this encounter Care Teams Public Safety Dispatcher Relationship Specialty Start Date End Date Linda Rios FNP [address] [place] [phone] PCP - General Nurse Practitioner Family 03/29/25 Emelia Soliman MD [address] [place] [address] Consulting Physician NEUROLOGY 03/23/25 03/23/26 Amber Bradley, RN Registered Nurse CARE MANAGEMENT 03/29/25 Ayah Hinson MD [address] [place] [address] Consulting Physician CARDIOVASCULAR DISEASE 04/07/25 documented as of this encounter
--- OUTSIDE RECORDS SUMMARY | 2025-04-12 09:21 | XMS_ITS | Clinical Summary ---
Author Organization [facility] Address [address] [place] [address] Care Team Providers Care Dictaphone Operator Name Role Phone Emelia Soliman MD Unavailable Linda Rios Primary Care Provider [phone] Amber Bradley RN Unavailable Unavailable Ayah Hinson MD Unavailable Allergies Active Allergy Reactions Criticality Noted [...] Chest Pain. 30 tablet 03/25/20 25 Active metoprolol succinate ER (TOPROL-XL) 50 MG [...] tabletIndicatio ns:Cerebrovascu lar accident (CVA), unspecified mechanism ([facility]) Take 1 tablet (80 mg [...] for 3 days. 3.6 mL 03/25/20 025 warfarin (COUMADIN) 2 MG tablet Take 1.5 tablets (3 mg total) by mouth daily for 14 days. Take 1.5 tablets (3 mg total) by mouth daily. 21 tablet 03/25/20 025 Active Problems Problem Noted Date Diagnosed Date Generalized weakness 04/03/2025 Abnormal gait 04/03/2025 A-fib ([facility]) 03/22/2025 Encounters Date Type Department Care Team Description 04/10/2025 11:02 AM CDT - 04/10/2025 11:59 PM CDT Hospital Encounter [facility] [address] [place] [address] Radha Escamilla, PT Non-Staff, Provider Hilary Dang, OT Discharge Disposition: Home or Self Care (Routine Discharge) 04/10/2025 9:46 AM CDT - 04/10/2025 11:01 AM CDT Hospital Encounter [facility] [address] [place] [address] Non-Staff, Provider Denice Rice, TECHNICAL OPERATIONS MANAGER Generalized Weakness Discharge Disposition: Home or Self Care (Routine Discharge) 04/10/2025 Travel 04/07/2025 12:15 PM CDT Office Visit [facility] [place] [address] Ayah Hinson MD Heart Problem 04/07/2025 8:15 AM CDT - 04/07/2025 9:26 AM CDT [facility] [address] [place] [address] Non-Staff, Provider Denice Rice, TECHNICAL OPERATIONS MANAGER Generalized Weakness Discharge Disposition: Home or Self Care (Routine Discharge) 04/07/2025 Travel 04/06/2025 Telephone [facility] [address] [place] [address] Ayah Hinson MD Appointment Reminder 04/05/2025 Abstract [facility] [facility] [address] [place] [address] Abstract, Doc Pccl 04/03/2025 8:42 AM CDT - 04/03/2025 11:59 PM CDT Hospital Encounter [facility] [address] [place] [address] Radha Escamilla, PT Weakness Discharge Disposition: Home or Self Care (Routine Discharge) 04/03/2025 Scan [facility] [address] [place] [address] Scanned, Doc Pccl ECG (SCAN) 04/03/2025 Travel 03/30/2025 Telephone [facility] [address] [place] [address] Ayha Hinson MD Appointment Request 03/30/2025 Telephone [facility] [address] [place] [address] Salazar Man MD Appointment Request 03/30/2025 Telephone [facility] [address], [address] [place] [address] Emelia Soliman MD Reschedule 03/29/2025 Patient [facility] [address] [place] [address] Amber Bradley RN [facility] 03/27/2025 Scan [facility] [address] [place] [address] Scanned, Doc Pccl 03/22/2025 10:20 PM CDT - 03/25/2025 1:19 PM CDT Hospital Encounter [facility] [place] [address] Mary Beth Grey MD Elayyan, Ibrahim B, MD Suresh, MD Denzel Urbano Vincent J, MD Discharge [...] drink = 0.6 oz pur e alcohol) [facility] Utilities Answer Date Recorded In the past 12 months has [employer], gas, oil, or water [employer] threatened to shut off services in your [...] any time in the past 12 m [facility], were you homeless or living in a jail (including now)? 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 Sex Female 5:53 PM LETTER CARRIER Gender Identity Female 03/22/2025 10:30 PM CDT Sexual Orientation Straight 03/22/2025 10 :30 PM CDT Last Filed Vital Signs Vital Sign Reading Time Taken Comments Blood Pressure 136/89 04/07/2025 12:06 PM CDT Pulse 94 04/07/2025 12:06 PM CDT Temperature 36.5 C (97.7 F) 03/25/2025 7:27 AM CDT Respiratory Rate 18 04/07/2025 12:0 6 PM CDT Oxygen Saturation 100% 04/07/2025 12: 06 PM CDT Inhaled Oxygen Concentration - - Weight 57.5 kg (126 lb 12.8 oz) 025 12:06 PM CDT Height 152.4 cm (5') 04/07/2025 12:06 PM CDT Body Mass Index 24.76 04/07/2025 12:06 PM CDT Plan of Treatment Upcoming Encounters Date Type Department Care Team (Late st Contact Info) Description 04/13/2025 10:00 AM CDT Appointment [facility] [address] [place] [address] Non-Staff, Provider Denice Rice PTA 04/13/2025 11:15 AM CDT Appointment [facility] [address] [place] [address] Linda Rios, [address] [address] Val Santillan COTA 04/17/2025 10:15 AM CDT Appointment [facility] [address] [place] [address] Radha Escamilla, PT [address] [place] [address] Non-Staff, Provider Denice Rice, NHI 04/17/2025 11:00 AM CDT Appointment [facility] [address] [place] [address] Linda Rios, [address] [address] Hilary Dang, OT [address] [place] [address] 04/20/2025 10:00 AM CDT Appointment [facility] [address] [place] [address] Radha Escamilla, PT [address] [place] [address] Non-Staff, Provider Denice Rice, NHI 04/20/2025 11:00 AM CDT Appointment [facility] [address] [place] [address] Linda Rios, [address] [address] Hilary Dang, OT [address] [place] [address] 05/01/2025 7:40 AM CDT Office Visit [facility] [address], [address] [place] [address] Emelia Soliman MD [address] [place] [address] 11/01/2025 11:00 AM LETTER CARRIER Office Visit [facility] [place] [address] Ayah Hinson MD [address] [place] [id number] Health Maintenance Due Date Last Done Comments Hepatitis C 1965 DTaP, Tdap and Td Vaccines ( 1 - Tdap) 1966 Zoster Vaccines (1 of 2) 1997 Annual Medicare Wellness Visit 2012 RSV Immunization or 60+ Years (1 - 1-dose 75+ series) 2022 COVID-19 Vaccine (4 - 2023-2 5 season) 2024 09/26/2021, 03/11/2021, 02/10/2021 PHQ-2 (Physician [place]) 11/30/2024 Pneumococcal Vaccine: 50+ Years Completed 12/16/2021, [...] this topic Medical Devices Implanted Type Area Sword Swallower Device Identifier Shelf Expiration Date Model / Serial / Lot Iol [employer]ecnis Simplicity Dcb00 - [id number] Implanted:Qty: 1 on 01/14/2023 by Geetha Ahmadi MD at [facility] Lens Right: Eye [employer] [id number] 11/05/2025 DCB00 / [id number] / [id number] Left Eye Implant Lens Implanted:Qty: 1 on 12/17/2022 by Geetha Ahmadi MD at [facility] Left: Eye 09/30/2025 DCB00 / / [id number] Procedures Procedure Name Priority Date/Time Associated [...] us Doc Pccl Scanned SCANNING Final Result [facility] * (ABNORMAL) PROTIME/INR, VENOUS (03/25/2025 7:53 AM CDT) Only the most recent of2 resultswithin the time period is included. PROTIME 13.1(H) 10.2 - 12.9 SEC 03/25/2025 8:49 AM CDT [facility] INR 1.1 03/25/2025 8:49 AM CDT [facility] Comment: Recommended INR Therapeutic Goals: 2.0-3.0 Routine Therapy 2.5-3.5 Mechanical Prosthetic Valves (High Risk) 03/25/2025 7:53 AM CDT us Darell Mahoney MD LABORATORY Final Result [facility] [address] [place] [address], [place] [phone] * (ABNORMAL) BASIC METABOLIC PANEL (03/25/2025 7:53 AM CDT) Only the most recent of3 resultswithin the time period is included. GLUCOSE 83 70 - 99 MG/DL 03/25/2025 8:38 AM CDT [facility] BUN 13 7 - 18 MG/DL 03/25/2025 8:38 AM CDT [facility] CREATININE S/P/B 0.58 0.55 - 1.02 MG/DL 03/25/2025 8:38 AM CDT [facility] SODIUM S/P/B 141 136 - 145 MMOL/L 03/25/2025 8:38 AM CDT [facility] POTASSIUM S/P/B 3.8 3.5 - 5.1 MMOL/L 03/25/2025 8:38 AM CDT [facility] CHLORIDE S/P/B 108 97 - 115 MMOL/L 03/25/2025 8:38 AM CDT [facility] CO2 25.7 21 - 32 MMOL/L 03/25/2025 8:38 AM CDT [facility] CALCIUM S/P/B 8.0(L) 8.5 - 10.1 MG/DL 03/25/2025 8:38 AM CDT [facility] ANION GAP 7.3 2 - 10 MMOL/L 03/25/2025 8:38 AM CDT [facility] BUN CREATININE RATIO 22.5 6 - 26 03/25/2025 8:38 AM CDT [facility] GFR ESTIMATE >90 >90 ML/MIN/1.7 3 M2 03/25/2025 8:38 AM CDT [facility] Comment: NOTE: eGFR is not calculated for patients <18 years of age or gender unknown. This is an estimated GFR calculation using the new CKD EPI creatinine equation without race and so does not require a correction factor for race. This estimated GFR should not be used for calculating drug doses. 03/25/2025 7:53 AM CDT Gifty Mayfield MD LABORATORY Final Result [facility] [address] [place] [address], [place] [phone] * CBC, AUTO, NO DIFF (03/25/2025 7:53 AM CDT) Only the most recent of2 resultswithin the time period is included. WBC 9.30 4.5 - 11.0 x10'3/uL 03/25/2025 8:30 AM CDT [facility] RBC 4.56 4.20 - 5.40 x10'6/uL 03/25/2025 8:30 AM CDT [facility] HGB 13.7 12.0 - 16.0 G/DL 03/25/2025 8:30 AM CDT [facility] HCT 42.2 38.0 - 48.0 % 03/25/2025 8:30 AM CDT [facility] MCV 92.5 81.0 - 99.0 FL 03/25/2025 8:30 AM CDT [facility] MCH 30.0 27.0 - 31.0 PG 03/25/2025 8:30 AM CDT [facility] MCHC 32.5 32.0 - 36.0 G/DL 03/25/2025 8:30 AM CDT [facility] RDW 13.6 11.5 - 14.5 % 03/25/2025 8:30 AM CDT [facility] PLT 308 130 - 400 x10'3/uL 03/25/2025 8:30 AM CDT [facility] MPV 11.1 9.3 - 12.2 FL 03/25/2025 8:30 AM CDT [facility] 03/25/2025 7:53 AM CDT us Gifty Mayfield MD LABORATORY Final Result [facility] [address] [place] [address], [place] [phone] * POCT glucose (03/24/2025 10:54 AM CDT) Only the most recent of2 resultswithin the time period is included. [facility] Signature GLUCOSE POC 79 70 - 99 mg/dL 03/24/2025 12:30 PM CDT [facility] 03/24/2025 10:5 4 AM CDT us Darell Mahoney MD POCT ORDERABLES - DEVICE Fin al Result [facility] [address] [place] [address], [place] [phone] * USV CAROTID DUPLEX EDWARD (03/24/2025 9:10 AM CDT) Anatomical Region Laterality Modality Neck Vascular Ultraso und 03/24/2025 8:47 AM CDT Narrative 03/24/2025 11:09 AM CDT CAROTID ARTERY DUPLEX IMAGING VASCULAR LAB Pat.Name: LEIF BRANCH MA Pat.ID: [id number] St.Date: 03/24/2025 Refer.MD: Salvador Ramírez Exam Time: 8:47:00 AM Study Type:EUN VS [...] VASCULAR LAB Pat.Name: LEIF BRANCH MA Pat.ID: [id number] .Date: 03/24/2025 Refer.MD: Salvador Ramírez Exam Time: 8:47:00 AM Study Type:EUN VS [...] Signature> 03/24/2025 11:09 AM Alyce Allred M.D. us Emelia Soliman MD [facility] Final Re sult * USE ECHOCARDIOGRAM (03/24/2025 9:01 AM CDT) Anatomical Region Laterality Modality Cardiac Echocardiogram 03/24/2025 7:59 AM CDT Narrative 03/24/2025 12:31 PM CDT Echocardiography Report Pat.Name: SARINA ELIF MA Pat.ID: [id number] .Date: 03/24/2025 Refer.MD: [id number] PAXTON Delacruz EWDPROV EWDPROV Exam Time: 7:59:00 AM Study Type:ECHO WITH CARDIAC DOPPLER COMP Height: 60 in Weight: 129 lb BSA: 1.55 m2 Age: 2 1945,80Y Sex: F BP: 140/88 HR: 96 bpm Sonogrphr: Daphnie Correa Pat. Stat.:Inpatient Room: [facility] Reason for Study:Atrial fibrillation / flutter Procedures: 2D, M-mode, Doppler, Color Flow, Intraveneous saline contrast was used to help determine presence of intracardiac shunting. The study quality is technically ad [id number]|2025-04-12 09:21:00|2025-04-12 09:20:00|XMS_ITS|BKG DAEMON|External Medical Summaries|[id number]|" Continuity of Care Document (C-CDA R2.1) (Encounter date: 04/22/2018 02:00 PM) Created on: April 12, 2025 James Grullon : 07/04/1953 Sex: Male Author Organization [facility] Address [address] [place] [address] Phone Care Team Providers Care Dictaphone Operator Name Role Phone Kameron Jade MD Unavailable Unavailable Allergies, Adverse Reactions, Alerts Substance Reaction Status Criticality No Known Allergies Active No Inform ation Medications Medication Instructions Dosage Effective Dates (start - stop) Status Comments Keflex 500 mg capsule take 1 capsule (500MG) by oral route 3 times a day for 7 days - Active Bactroban 2 % topical ointment Apply a small amount to each nostril on clean Qtips BID starting 5 days prior to surgery - Active warfarin 3 mg tablet - Active COREG (unknown strength) Not Available - Active LEVEMIR (unknown strength) Not Available - Active NOVOLOG (unknown strength) inject by subcutaneous route per prescriber's instructions. Insulin dosing requires individualization. Not Available - Active PROZAC (unknown strength) Not Available - Active Procedures Procedure Date POSTOP FOLLOW-UP VISIT POSTOP FOLLOW-UP VISIT POSTOP FOLLOW-UP VISIT POSTOP FOLLOW-UP VISIT ARTHROTOMY , KNEE, W/ EXPLORE, DRAIN, RE MOVE LOOSE/FOREIGN BODY POSTOP FOLLOW-UP VISIT XRAY KNEE, 3 VIEWS CR POSTOP FOLLOW-UP VISIT Office Visit, No Charge POSTOP FOLLOW-UP VISIT KNEE IMMOBOLIZER TOTAL KNEE ARTHROPLASTY OFFICE/OUTPATIENT VISIT, EST XRAY KNEE, 4+ VIEWS OFFICE/OUTPATIENT VISIT, EST XRAY KNEE, 1-2 VIEWS OFFICE/OUTPATIENT VISIT, EST XRAY KNEE, 1-2 VIEWS POSTOP FOLLOW-UP VISIT XRAY KNEE, 1-2 VIEWS POSTOP FOLLOW-UP VISIT XRAY KNEE, 1-2 VIEWS POSTOP FOLLOW-UP VISIT Tibial Fx, Prox Plateau, OpT x Unicondylar, Inc Internal Fixation When Performed OPEN MENISCECTOMY, KNEE, MEDIAL OR LATER AL (ARTHROTOMY) OFFICE/OUTPATIENT VISIT, EST OFFICE/OUTPATIENT VISIT, NEW POSTOP FOLLOW-UP VISIT X-RAY EXAM OF KNEE, 3 POSTOP FOLLOW-UP VISIT TOTAL KNEE ARTHROPLASTY Perio stephenie qual act perform OFFICE/OUTPATIENT VISIT, EST X-RAY EXAM, KNEE, 4 OR MORE Advance Directives Directive Yes / No Effective Date File Name No Information Encounters Encounter Description Practice Location Reason(s) For Visit Diagnoses Date Provider Providers Copied on Encounter [facility], [address] [place] [address], [facility], [place] tel:[phone] [facility] [place], [facility] post-op right knee (chief complaint) Body mass index (BMI) 27.0-27.9, adultInfectio n of total right knee replacement, subsequent encounter 8 Kalie Melo. [address] [place] [address], [id number], [place]. tel:[phone] Referring Provider: Lashae Wu [address] [place], [address] . tel:[phone] [facility], [address] [place] [address], [facility], [place] tel:[phone] [facility] [place] post-op right knee (chief complaint) Body mass index (BMI) 27.0-27.9, adultInfectio n of total right knee replacement, subsequent encounter 8 Kalie Melo. [address] [place], [place], [id number], [place]. tel:[phone] Referring Provider: Lashae Wu [address] [place], [address] . tel:[phone] [facility], [address] [place] [address], [address], [place] tel:[phone] [facility] [place] post-op right knee (chief complaint) Infection of total right knee replacement, subsequent encounterPres ence of right artificial knee joint 8 Grayson Jacqueline. [address] [place], [place], [id number], [place]. tel:[phone] Referring Provider: Lashae Wu [address] [place], [address] . tel:[phone] [facility], [address] [place] [address], [address], [place] tel:[phone] [facility] [place] post-op right knee (chief complaint) Body mass index (BMI) 27.0-27.9, adultInfect/i nflm reaction due to internal r knee prosth, init 8 Kalie Melo. [address] [place], [place], [id number], [place]. tel:[phone] Referring Provider: Lashae Wu [address] [place], [address] . tel:[phone] [facility], [address] [place] [address], [address], [place] tel:[phone] [facility] No Information 8 Kalie Melo. [address] [place], [place], [id number], [place]. tel:[phone] Referring Provider: Lashae Wu [address] [place], [address] . tel:[phone] [facility], [address] [place] [address], [address], [place] tel:[phone] [facility] [place] post-op right knee (chief complaint) post-op right knee (chief complaint) Aftercare following right knee joint replacement surgeryPresen ce of right artificial knee joint 0 8 Kalie Melo. [address] [place], [place], [id number], [place]. tel:[phone] [facility], [address] [place] [address], [address], [place] tel:[phone] [facility] [place] post-op right knee (chief complaint) Aftercare following right knee joint replacement surgeryPresen ce of right artificial knee joint 0 8 Kalie Melo. [address] [place], [place], [id number], [place]. tel:[phone] [facility], [address] [place] [address], [address], [place] tel:[phone] [facility] [place] post-op right knee (chief complaint) Aftercare following right knee joint replacement surgeryPresen ce of right artificial knee jointBody mass index (BMI) 27.0-27.9, adult 8 Kalie Melo. [address] [place], [place], [id number], [place]. tel:[phone] [facility], [address] [place] [address], [address], [place] tel:[phone] [facility] [place] post-op right knee (chief complaint) Aftercare following right knee joint replacement surgeryPresen ce of right artificial knee joint 8 Kalie Melo. [address] [place], [place], [id number], [place]. tel:[phone] [facility], [address] [place] [address], [address], [place] tel:[phone] [facility] No Information 8 Kalie Rizvi. [address] [facility], [address], [id number], [place]. tel:[phone] [facility], [address] [place] [address], [address], [place] tel:[phone] [facility] No Information 8 Kalie Kameron. [address] [place], [place], [id number], [place]. tel:[phone] [facility], [address] [place] [address], [address], [place] tel:[phone] [facility] No Information 8 Kalie Melo. [address] [place], [place], [id number], [place]. 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 [address] [place], [place], [id number], [place]. tel:[phone] Referring Provider: Kameron Gonzalez, [facility] [facility] [address], [place], [address] . tel:[phone] OFFICE/OUTPA TIENT VISIT, EST [facility], [address] [place] [address], [address], [place] tel:[phone] [facility] [place] right knee pain (chief complaint) Acute pain of right knee 7 Dontae Newton. [address] [place] [address], [id number], [place]. tel:[phone] Referring Provider: Kameron Gonzalez, [address] [facility] [address], [place], [address] . tel:[phone] OFFICE/OUTPA TIENT VISIT, EST [facility], [address] [place] [address], [address], [place] tel:[phone] [facility] [place] right knee pain (chief complaint) Acute pain of right knee 7 Dontae Newton. [address] [place], [place], [id number], [place]. tel:[phone] Referring Provider: Eladia Burgess [facility], [place], [address] . tel:[phone] [facility], [address] [place], [address], [place] tel:[phone] [facility] [place] post-op right knee (chief complaint) Closed displaced bicondylar fracture of right tibia with routine healing May-0 8-201 7 Rappe Aman. [address] [place], [place], [id number], [place]. tel:[phone] Referring Provider: Eladia Burgess [facility], [place], [address] . tel:[phone] [facility], [address] [place] [address], [address], [place] tel:[phone] [facility] [place] post-op right knee (chief complaint) Closed displaced bicondylar fracture of right tibia with routine healing Mar-2 7-201 7 Rappe Aman. [address] [place], [place], [id number], [place]. tel:[phone] Referring Provider: Eladia Burgess [facility], [place], [address] . tel:[phone] [facility], [address] [place], [address], [place] tel:[phone] [facility] [place] post-op right knee (chief complaint) Closed displaced bicondylar fracture of right tibia with routine healing Jan-1 3-201 7 Rappe Aman. [address] [place], [place], [id number], [place]. tel:[phone] Referring Provider: Eladia Burgess [facility], [place], [address] . tel:[phone] [facility], [address] [place], [address], [place] tel:[phone] [facility] No Information Jan-0 7-201 7 Rappe Aman. [address] [place], [place], [id number], [place]. tel:[phone] OFFICE/OUTPA TIENT VISIT, [facility], [address] [place] [address], [address], [place] tel:[phone] [facility] right knee pain (chief complaint) Fracture of right tibial plateau, closed, initial encounterRigh t calf pain Mar-0 3-201 7 Rappe Aman. [address] [place] [address], [id number], [place]. tel:[phone] Referring Provider: Kameron Gonzalez, [address] [place] [address], [place], [address] . tel:[phone] OFFICE/OUTPA TIENT VISIT, [facility], [address] [place] [address], [address], [place] tel:[phone] [facility] [place] right knee pain (chief complaint) Acute pain of right knee Fe-2 7 Rappe Aman. [address] [place] [address], [id number], [place]. tel:[phone] Referring Provider: Kameron Gonzalez, [address] [place] [address] [address], [place], [address] . tel:[phone] [facility], [address] [place] [address], [address], [place] tel:[phone] [facility] [place] No Information 1- 2 Kalie Melo. [address] [place], [place], [id number], [place]. tel:[phone] [facility], [address] [place] [address], [address], [place] tel:[phone] [facility] [place] No Information 0 4-201 2 Kalie Melo. [address] [place], [place], [id number], [place]. tel:[phone] [facility], [address] [place] [address], [facility], tel:[phone] [facility] No Information 2 Kalie Melo. [address] [place], [place], [id number], . tel:[phone] OFFICE/OUTPA TIENT VISIT, EST [facility], [address] [place] [address], [facility], tel:[phone] [facility], [place], operated [facility] No Information 2 Kalie Melo. [address] [place], [place], [id number], . tel:[phone] Family History Family Member Type Diagnosis Age At Onset Problem (finding) Family history of strok e Problem (finding) Family history of Heart disease Problem (finding) Family history of Cance r, unknown Payers Payer name Insurance type Covered constitution party ID Doroteoa anibal(s) [facility] Jascha Medicare MB [id number] Social History Type Description Quantity Date Captured Comments Alcohol Use Details No Caffeine Use Details Unknown Tobacco Use Status No Information Smoking Status Former smoker Non-Smoking Tobacco Use Details : No Details Available : No Details Available Sex Male Vital Signs Date / Time: Height Weight BMI Pulse Rate Blood Pressure Temperature Respiratory Rate Body Surface Area Head Circumference Head Circ. Percentile Wt./Liborio. Percentile BMI percentile Pulse Ox Inhaled Ox 2:07 PM 71.00 in 90.718 kg (200.00 lbs) 27.8 9 kg/m yisseler (2) Chief Complaint And Reason For Visit From encounter dated '04/22/2018 14:00'. post-op right knee (chief complaint). Description: Activity level is: dependent. Status is: improving. Pain level is: 2/10. Pain frequency: occasional. No pain medications. WB status: full. Wound healing. No calf tenderness. No fever/chills. No rehabilitation. No nausea/vomiting. No swelling. Home exercise. Using assistive device. Device: quad cane. Reason For Referral Reason For Referral No Information Plan Of Treatment Date Type Action Status Goal Lifestyle education regardin g diet completed Goal Lifestyle education regardin g diet completed Goal Lifestyle education regardin g diet completed Goal Lifestyle education regardin g diet completed Referral Referred To: [facility] Ordered: Referrals: [facility] ordered Referral Ordered: UNILATERAL VENOUS DOPPLER (rule Out Dvt) RT lower leg Appointment date/timeframe: 01/30/2017 ordered Referral Ordered: CT LOWER EXTREMITY W/O DYE RT knee Appointment date/timeframe: 01/27/2017 ordered Referral Ordered: [employer] Document ordered Referral Ordered: [employer] Document ordered Referral Ordered: [employer] Document ordered History Of Present Illness Encounter Date Complaint History Of Prese nt Illness post-op right knee Activity leve l is: dependent. Status is: improving. Pain level is: 2/10. Pain frequency: occasional. No pain medications. WB status: full. Wound healing. No calf tenderness. No fever/chills. No rehabilitation. No nausea/vomiting. No swelling. Home exercise. Using assistive device. Device: quad cane. post-op right knee Activity leve l is: with assistance. Status is: improving. Pain level is: 5/10. Pain medications taken. Medication frequency: as needed. Wound healing. No calf tenderness. No fever/chills. Rehabilitation. No nausea/vomiting. No swelling. Home exercise. Using assistive device. Device: straight cane. post-op right knee Status is: im proving. Pain frequency: intermittent. Pain medications taken. WB status: partial. Wound healing. No calf tenderness. No fever/chills. Rehabilitation. No nausea/vomiting. Swelling. No home exercise. Using assistive device. Device: standard walker. Other: Well healed incision. Other: Well healed incision. post-op right knee Status is: un changed. Pain frequency: constant. Pain medications taken. Medication frequency: as prescribed. WB status: non-weight bearing. Wound not healing. Details: serous drainage, mild. No calf tenderness. No fever/chills. Rehabilitation. No nausea/vomiting. Swelling. No home exercise. Using assistive device. Other: Well healed incision. Other: Well healed incision. post-op right knee Status is: im proving. Pain level is: 6/10. Pain medications taken. Response: good. Medication frequency: less often than prescribed. WB status: full. Wound healing. No calf tenderness. No fever/chills. No rehabilitation. No nausea/vomiting. Swelling. No home exercise. Using assistive device. Device: standard walker. Other: Well healed incision. Other: Well healed incision. post-op right knee Activity darlene zambrano is: with assistance. Status is: improving. Pain level is: 2/10. Pain frequency: occasional. Pain medications taken. Medications: prescription pain medication. Medication frequency: as needed. WB status: full. Wound healing. No calf tenderness. No fever/chills. No rehabilitation. No nausea/vomiting. Swelling. No home exercise. Using assistive device. Device: brace/wheelchair. post-op right knee Activity darlene l is: dependent. Work status is: no work/activity. Status is: improving. Pain level is: 5/10. Pain frequency: occasional. Pain medications taken. Medication frequency: as needed. WB status: full. Wound healing. No calf tenderness. No fever/chills. No rehabilitation. No nausea/vomiting. Swelling. Home exercise. Using assistive device. Device: rolling walker. Other: Well healed incision. post-op right knee Activity darlene l is: with assistance. Pain frequency: occasional. Pain medications taken. Medications: prescription pain medication. WB status: full. Details: bloody. No calf tenderness. No fever/chills. Rehabilitation. No nausea/vomiting. No swelling. Home exercise. Using assistive device. Device: rolling walker. right knee pain Mr Mitchel Myles is a 64 year old male who complains of right knee pain. He presents with pain on the right side. He rates his current pain as 7/10. right knee pain Mr Mitchel Myles is a 64 year old male who complains of right knee pain. He presents with pain on the right side. right knee pain Mr Mitchel Myles is a 63 year old male who complains of right knee pain. He presents with pain on the right side. Patient is using a walker. He rates his current pain as 0/10. post-op right knee Activity darlene l is: dependent. Status is: improving. Pain level is: 2/10. Pain medications taken. Medications: prescription pain medication. Medication frequency: as needed. WB status: partial. Wound healing. No calf tenderness. No fever/chills. Rehabilitation. No nausea/vomiting. No swelling. Home exercise. Using assistive device. Device: wheelchair. Other: Well healed incision. post-op right knee Activity leve l is: dependent. Status is: improving. Pain level is: 0/10. No pain medications. WB status: non-weight bearing. Wound healing. No calf tenderness. No fever/chills. No rehabilitation. No nausea/vomiting. Swelling. Home exercise. Using assistive device. Device: wheelchair. Other: Well healed incision. post-op right knee Activity stanislave l is: dependent. Work status is: no work/activity. Status is: unchanged. Pain level is: 10/10. Pain frequency: constant. Pain medications taken. Response: fair. Medication frequency: as needed. WB status: non-weight bearing. Wound healing. No calf tenderness. No fever/chills. No rehabilitation. No nausea/vomiting. Swelling. No home exercise. Using assistive device. Device: wheelchair. Other: Well healed incision. right knee pain James Grullon Jr is a 63 year old male. He presents with pain on the right side. The symptoms occur intermittently. The problem is unchanged. Currently the patient states that the symptoms are mild. He rates his current pain as 3/10. The symptoms are aggravated by HE IS HERE FOR CT RESULT S. right knee pain James Grullon Jr is a 63 year old male. He presents with pain on the right side. Patient states he fell 20 foot from a roof while cleanig gutters. The symptoms occur constantly. Currently the patient states that the symptoms are severe. The pain is described as aching and sharp. He rates his current pain as 10/10. The symptoms are aggravated by movement. In addition to right knee pain the patient is also experiencing pain. The patient has had a previous x-ray. Patient states he was seen at [facility] and they done x-rays there. Functional Status Date Functional Assessmen t No Information Instructions Date Instruction Additional Infor corneliusion Advance activity as tolerated Discussed post op care/precautio ns Elevate as needed Follow exercise program Ice as needed Progress until full ROM Progress until full strength Lifestyle education regarding di et Related to Body mass index (BMI) 27.0-27.9, adult continue physical therapy Ice as needed Progress until full ROM Progress until full strength Advance activity as tolerated Discussed wound care Discussed post op care/precautio ns Elevate as needed Follow exercise program Lifestyle education regarding di et Related to Body mass index (BMI) 27.0-27.9, adult Elevate as needed Limit activity observe Lifestyle education regarding di et Related to Body mass index (BMI) 27.0-27.9, adult Elevate as needed Discussed post op care/precautio ns Discussed wound care Advance activity as tolerated Discussed wound care Discussed post op care/precautio ns Elevate as needed Follow exercise program Ice as needed Limit activity Progress until full ROM Progress until full strength schedule physical therapy Advance activity as tolerated Discussed wound care Discussed post op care/precautio ns Elevate as needed Follow exercise program Progress until full ROM Progress until full strength Ice as needed Lifestyle education regarding di et Related to Body mass index (BMI) 27.0-27.9, adult continue physical therapy Discussed wound care Discussed post op care/precautio ns Elevate as needed Follow exercise program Advance activity as tolerated Ice as needed Progress until full ROM Progress until full strength Discussed post op care/precautio ns Follow exercise program Progress until full ROM Progress until full strength Progress until full ROM Progress until full strength Discussed wound care Discussed post op care/precautio ns Elevate as needed Follow exercise program Ice as needed Progress until full strength Progress until full ROM Ice as needed Follow exercise program Discussed wound care Discussed post op care/precautio ns Elevate as needed Assessments Type Assessment Date assessment Body mass index (BMI) 27.0-27.9, adult assessment 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
[2025-04-12 09:50] LABS: INR 2.1; Prothrombin Time 21.4 Seconds (9.50-12.1)
== END 2025-04-12 09:17 | disposition home or self-care (01) ==
LOC: CHSLAB 09:17
PROVIDERS: PCP Family Medicine; Visit Provider Nurse Practitioner Family
DX: Z79.01 Long term (current) use of anticoagulants (principal); I48.91 Unspecified atrial fibrillation
CPT/HCPCS: 36415; 85610

== ENCOUNTER 2025-04-19 09:06 | Outpatient (CLI) | payer MEDICARE, SELFPAY ==
[2025-04-19 09:28] LABS: Prothrombin Time 21.1 Seconds (9.50-12.1)
== END 2025-04-19 09:07 | disposition home or self-care (01) ==
PROVIDERS: PCP Family Medicine; Visit Provider Nurse Practitioner Family
DX: I48.91 Unspecified atrial fibrillation (principal); Z79.01 Long term (current) use of anticoagulants
CPT/HCPCS: 36415; 85610

== ENCOUNTER 2025-05-10 11:47 | Outpatient (CLI) | payer MEDICARE, SELFPAY ==
[2025-05-10 12:25] LABS: INR 1.5
== END 2025-05-10 11:48 | disposition home or self-care (01) ==
LOC: CHSLAB 11:48
PROVIDERS: PCP Family Medicine; Visit Provider Nurse Practitioner Family
DX: Z79.01 Long term (current) use of anticoagulants (principal); I48.91 Unspecified atrial fibrillation
CPT/HCPCS: 36415; 85610

== ENCOUNTER 2025-05-19 13:05 | Outpatient (CLI) | payer MEDICARE, SELFPAY ==
[2025-05-19 13:29] LABS: INR 1.7; Prothrombin Time 17.4 Seconds (9.50-12.1)
== END 2025-05-19 13:06 | disposition home or self-care (01) ==
PROVIDERS: PCP Family Medicine; Visit Provider Nurse Practitioner Family
DX: I48.91 Unspecified atrial fibrillation (principal)
CPT/HCPCS: 36415; 85610

== ENCOUNTER 2025-05-26 09:25 | Outpatient (CLI) | payer MEDICARE, SELFPAY ==
[2025-05-26 09:45] LABS: INR 2.1; Prothrombin Time 21.9 Seconds (9.50-12.1)
== END 2025-05-26 09:26 | disposition home or self-care (01) ==
PROVIDERS: PCP Nurse Practitioner Family; Visit Provider Nurse Practitioner Family
DX: I48.91 Unspecified atrial fibrillation (principal); Z79.01 Long term (current) use of anticoagulants
CPT/HCPCS: 36415; 85610

== ENCOUNTER 2025-06-23 09:29 | Outpatient (CLI) | payer MEDICARE, SELFPAY ==
--- OUTSIDE RECORDS SUMMARY | 2025-06-23 09:33 | XMS_ITS | Clinical Summary ---
Author Organization [facility] Address Formerly [facility] [place] [address] Care Team Providers Care Floor Attendant Name Role Phone Emelia Soliman MD Unavailable [phone] Linda Rios Primary Care Provider [phone] Amber Bradley RN Unavailable Unavailable Ayah Hinson MD Unavailable Allergies Active Allergy Reactions Criticality Noted Date Comments Penicillins Hives 12/17/2022 Medications multi vitamin/minerals (THERA-M ENHANCED) tablet Take 1 tablet by mouth daily. Active atorvastatin (LIPITOR) 80 MG tabletIndication s:Cerebrovascula r accident (CVA), unspecified mechanism (CMS/HCC HHS/HCC) Take 1 tablet (80 mg total) by mouth nightly at bedtime. 30 tablet 03/25/2025 Active nitroglycerin (NITROSTAT) 0.[address] 1 tablet (0.4 mg total) under the tongue every 5 (five) minutes as needed for Chest Pain. 30 tablet 03/25/2025 Active metoprolol succinate ER (TOPROL-XL) 50 MG 24 hr tablet Take 1 tablet (50 mg total) by mouth 2 (two) times daily. 04/25/2025 Active metoprolol succinate ER (TOPROL-XL) 100 MG 24 hr tablet Take 1 tablet (100 mg total) by mouth 2 (two) times daily. 04/26/2025 Active warfarin (COUMADIN) 2 MG tablet Take 1.5 tablets (3 mg total) by mouth daily. 04/04/2025 Active warfarin (COUMADIN) 4 MG tablet Take 1 tablet (4 mg total) by mouth daily. 04/06/2025 Active Active Problems Problem Noted Date Diagnosed Date Generalized weakness 04/03/2025 Abnormal gait 04/03/2025 A-fib ([facility]) 03/22/2025 Encounters Date Type Department Care Team Description 05/10/2025 10:04 AM CDT - 05/10/2025 11:59 PM CDT Hospital Encounter [facility] [address] [place] [address] Radha Escamilla, PT Non-Staff, Provider Weakness Discharge Disposition: Home or Self Care (Routine Discharge) 05/10/2025 Travel 05/08/2025 10:24 AM CDT - 05/08/2025 11:59 PM CDT [facility] [address] [place] [address] Linda Rios FNP Hankins, Nichole K, OT Discharge Disposition: Home or Self Care (Routine Discharge) 05/08/2025 Travel 05/04/2025 11:00 AM CDT - 05/04/2025 11:59 PM CDT [facility] [address] [place] [address] Lnida Rios FNP Peterson, Laura M, PT Weakness Discharge Disposition: Home or Self Care (Routine Discharge) 05/04/2025 9:54 AM CDT - 05/04/2025 10:59 AM CDT [facility] [address] [place] [address] Linda Rios FNP Schmidt, Halley M, NG Discharge Disposition: Home or Self Care (Routine Discharge) 05/04/2025 Travel 05/02/2025 10:54 AM CDT - 05/02/2025 11:59 PM CDT [facility] [address] [place] [address] Linda Rios FNP Bodner, Katie A, PLC TECHNICIAN Generalized Weakness Discharge Disposition: Home or Self Care (Routine Discharge) 05/02/2025 9:50 AM CDT - 05/02/2025 10:53 AM CDT Hospital Encounter [facility] [address] [place] [address] Linda Rios FNP Schmidt, Halley M, NG Discharge Disposition: Home or Self Care (Routine Discharge) 05/02/2025 Travel 05/01/2025 7:40 AM CDT Office Visit [facility] Medical Group Multispecialty Care - [facility] [address] [facility], [address] [place] [address] Emelia Soliman MD Establish Care (CVA) 05/01/2025 Travel 04/26/2025 Telephone [facility] [address] [place] [phone] Ayah Hinson MD Medication Request 04/25/2025 10:44 AM CDT - 04/25/2025 11:59 PM CDT Hospital Encounter [facility] [address] [place] [address] Radha Escamilla, PT Non-Staff, Provider Denice Rice, PLC TECHNICIAN Generalized Weakness Discharge Disposition: Home or Self Care (Routine Discharge) 04/25/2025 Travel 04/20/2025 10:53 AM CDT - 04/20/2025 11:59 PM CDT Hospital Encounter [facility] [address] [place] [address] Linda Rios FNP Hankins, Nichole K, OT Discharge Disposition: Home or Self Care (Routine Discharge) 04/20/2025 9:51 AM CDT - 04/20/2025 10:52 AM CDT Hospital Encounter [facility] [address] [place] [address] Radha Escamilla, PT Non-Staff, Provider Denice Rice, PLC TECHNICIAN Generalized Weakness Discharge Disposition: Home or Self Care (Routine Discharge) 04/20/2025 Travel 04/17/2025 10:50 AM CDT - 04/17/2025 11:59 PM CDT Hospital Encounter [facility] [address] [place] [address] Linda Rios FNP Hankins, Nichole K, OT Discharge Disposition: Home or Self Care (Routine Discharge) 04/17/2025 10:06 AM CDT - 04/17/2025 10:49 AM CDT Hospital [facility] [address] [place] [address] Radha Escamilla, PT Non-Staff, Provider Denice Rice, PLC TECHNICIAN Generalized Weakness Discharge Disposition: Home or Self Care (Routine Discharge) 04/17/2025 Travel 04/13/2025 10:55 AM CDT - 04/13/2025 11:59 PM CDT [facility] [address] [place] [address] Linda Rios FNP Schmidt, Halley M, NG Discharge Disposition: Home or Self Care (Routine Discharge) 04/13/2025 9:47 AM CDT - 04/13/2025 10:54 AM CDT [facility] [address] [place] [address] Non-Staff, Provider Denice Rice, PLC TECHNICIAN Generalized Weakness Discharge Disposition: Home or Self Care (Routine Discharge) 04/13/2025 Travel 04/12/[address] [address] Ayah Hinson MD Appointment Request 04/10/2025 11:02 AM CDT - 04/10/2025 11:59 PM CDT [facility] [address] [place] [address] Radha Escamilla, PT Non-Staff, Provider Hilary Dang, OT Discharge Disposition: Home or Self Care (Routine Discharge) 04/10/2025 9:46 AM CDT - 04/10/2025 11:01 AM CDT [facility] [address] [place] [address] Non-Staff, Provider Denice Rice, PLC TECHNICIAN Generalized Weakness Discharge Disposition: Home or Self Care (Routine Discharge) 04/10/2025 Travel 04/07/2025 12:15 PM CDT Office Visit [facility] [place] [address] Ayah Hinson MD Heart Problem 04/07/2025 8:15 AM CDT - 04/07/2025 9:26 AM CDT Hospital Encounter [facility] [address] [place] [address] Non-Staff, Provider Denice Rice PLC TECHNICIAN Generalized Weakness Discharge Disposition: Home or Self Care (Routine Discharge) 04/07/2025 Travel 04/06/2025 Scan [facility] [address] [place] [address] Scanned, Doc Pccl ECG (SCAN) 04/06/2025 Scan [facility] [address] [place] [address] Scanned, Doc Pccl Lab (SCAN) 04/06/2025 Telephone [facility] [address] [place] [address] Ayah Hinson MD Appointment Reminder 04/05/2025 Abstract [facility] [address] [place] [address] Abstract, Doc Pccl 04/03/2025 8:42 AM CDT - 04/03/2025 11:59 PM CDT Hospital Encounter [facility] [address] [place] [address] Radha Escamilla, PT Weakness Discharge Disposition: Home or Self Care (Routine Discharge) 04/03/2025 Scan [facility] [address] [place] [address] Scanned, Doc Pccl ECG (SCAN) 04/03/2025 Travel 03/30/2025 Telephone [facility] [address] [place] [address] Ayah Hinson MD Appointment Request 03/30/2025 Telephone [facility] [address] [place] [address] Salazar Man MD Appointment Request 03/30/2025 Telephone [facility] Medical Group Multispecialty Care - [facility] [address] [facility], [address] [place] [phone] Emelia Soliman MD Reschedule 03/29/2025 Patient [facility] [address] [place] [address] Amber Bradley RN [facility] 03/27/2025 Scan [facility] [address] [place] [address] Scanned, Doc Pccl 03/22/2025 10:20 PM CDT - 03/25/2025 1:19 PM CDT Hospital Encounter [facility] [place] [address] Mary Beth Grey MD Elayyan, MD Andrez Burt, MD Denzel Urbano Vincent J, MD Discharge Disposition: Home or Self Care (Routine Discharge) from Last 3 Months Family History Medical History Relation Comments Breast Cancer Sister in her 60's Relation Status Comments Sister Social History Tobacco Use Types Packs/Day Years Used Date Smoking Tobacco: Never Smokeless Tobacco: Never Tobacco Cessation:Counseling Given: No Alcohol Use Standard Drinks/Week Comments Not Currently [...] at all 03/22/2025 PHQ-2 Answer Date Recorded Patient Health Questionnaire-2 Score 0 05/01/2025 Hunger Vital Sign Answer Date Recorded Within [...] PM CDT Legal Sex Female 5:53 PM PHYSICIAN INTERNIST Gender Identity Female 03/22/2025 10:30 PM CDT Sexual Orientation Straight 03/22/2025 10 :30 PM CDT Last Filed Vital Signs Vital Sign Reading Time Taken Comments Blood Pressure 150/100 05/01/2025 8:22 AM CDT Pulse 74 05/01/2025 7:48 AM CDT Temperature 36.5 C (97.7 F) 03/25/2025 7:27 AM CDT Respiratory Rate 18 04/07/2025 12:06 PM CDT Oxygen Saturation 99% 05/01/2025 7:48 AM CDT Inhaled Oxygen Concentration - - Weight 54.9 kg (121 lb) 05/01/2025 7:48 AM CDT Height 152.4 cm (5') 05/01/2025 7:48 AM CDT Body Mass Index 23.63 05/01/2025 7:48 AM CDT Plan of Treatment Upcoming Encounters Date Type Department Care Team (Late st Contact Info) Description 10/30/2025 2:20 PM PHYSICIAN INTERNIST Office Visit [facility] Medical Group Multispecialty Care - [address], [address] [place] [address] Emelia Soliman MD [address] [place] [address] 11/01/2025 11:00 AM PHYSICIAN INTERNIST Office Visit [facility] [place] [address] Ayah Hinson MD [address] [place] [address] Health Maintenance Due Date Last Done Comments Hepatitis C 1965 DTaP, Tdap and Td Vaccines ( 1 - Tdap) 1966 Zoster Vaccines (1 of 2) 1997 Annual Medicare Wellness Visit 2012 RSV Immunization or 60+ Years (1 - 1-dose 75+ series) 2022 COVID-19 Vaccine (4 - 2023-2 5 season) 2024 09/26/2021, 03/11/2021, 02/10/2021 Pneumococcal Vaccine: 50+ Years Completed 12/16/2021, 11/26/2020 Dexa Scan (General) Completed 08/31/2023, 06/19/2021 PHQ-2 (Physician Crow) Completed 05/01/2025 Meningococcal B Vaccine Aged Out No l onger eligible based on patient's age to complete this topic Meningococcal Vaccine Aged Out No lisa tanya eligible based on patient's age to complete this topic RSV Immunizations Under 20 Months Aged Out No longer eligible b ased on patient's age to complete this topic Medical Devices Implanted Type Area Health And Safety Instructor Device Identifier Shelf Expiration Date Model / Serial / Lot Iol Tecalberto Reyes Dcb00 - [id number] Implanted:Qty: 1 on 01/14/2023 by Geetha Ahmadi MD at [facility] Lens Right: Eye [employer] [id number] 11/05/2025 DCB00 / [id number] / [id number] Left Eye Implant Lens Implanted:Qty: 1 on 12/17/2022 by Geetha Ahmadi MD at [facility] Left: Eye 09/30/2025 DCB00 / / [id number] Procedures Procedure Name Priority Date/Time Associated Diagnosis Comments ECG GENERIC (SCAN ORDER) Routine 04/06/2025 12:00 AM CDT OUTSIDE PT/INR (SCAN ORDER) Routine 04/06/2025 12:00 AM CDT ECG GENERIC (SCAN ORDER) Routine 04/03/2025 12:00 AM CDT PROTHROMBIN TIME, VENOUS Routine 03/25/2025 7:53 AM CDT CBC, AUTO, NO DIFF Routine 03/25/2025 7: 53 AM CDT BASIC METABOLIC PANEL Routine 03/25/2025 7:53 AM CDT POCT GLUCOSE - DOCKED DEVICE Routine 03/24/2025 10:54 AM CDT USV CAROTID DUPLEX EDWARD Today 9:10 AM CDT USE ECHOCARDIOGRAM Today 03/24/2025 9: 01 AM CDT POCT GLUCOSE - DOCKED DEVICE Routine 03/24/2025 7:33 AM CDT HEPARIN, ANTI XA, UFH TIMED 03/24/2025 7:05 AM CDT LIPID PANEL Routine 03/24/2025 7:05 AM CDT CBC, AUTO, NO DIFF Routine 03/24/2025 7: 05 AM CDT BASIC METABOLIC PANEL Routine 03/24/2025 7:05 AM CDT HEPARIN, ANTI XA, UFH TIMED 03/24/2025 2:02 AM CDT BONE DENSITY/DEXA Routine 08/31/2023 2:5 1 PM CDT Post-menopausal from Last 3 Months or Most Recently Relevant to Health Maintenance Results * ECG (04/06/2025 12:00 AM CDT) Only the most recent of2 resultswithin the time period is included. 04/06/2025 us Doc Pccl Scanned SCANNING Final Result [facility] ONBASE * OUTSIDE PT/INR (04/06/2025 12:00 AM CDT) 04/06/2025 us Doc Pccl Scanned SCANNING Final Result Performing Organization Address City/[facility]/ZIP Co de Phone Number [facility] ONBASE * (ABNORMAL) PROTIME/INR, VENOUS (03/25/2025 7:53 AM CDT) PROTIME 13.1(H) 10.2 - 12.9 SEC 03/25/2025 8:49 AM CDT [facility] INR 1.1 03/25/2025 8:49 AM CDT [facility] Comment: Recommended INR Therapeutic Goals: 2.0-3.0 Routine Therapy 2.5-3.5 Mechanical Prosthetic Valves (High Risk) 03/25/2025 7:53 AM CDT Darell Mahoney MD LABORATORY Final Result [facility] [address] [place] [address], [place] [phone] * (ABNORMAL) BASIC METABOLIC PANEL (03/25/2025 7:53 AM CDT) Only the most recent of2 resultswithin the time period is included. GLUCOSE 83 70 - 99 MG/DL 03/25/2025 8:38 AM CDT [facility] BUN 13 7 - 18 MG/DL 03/25/2025 8:38 AM CDT [facility] CREATININE S/P/B 0.58 0.55 - 1.02 MG/DL 03/25/2025 8:38 AM CDT [facility] SODIUM S/P/B 141 136 - 145 MMOL/L 03/25/2025 8:38 AM CDT [facility] POTASSIUM S/P/B 3.8 3.5 - 5.1 MMOL/L 03/25/2025 8:38 AM CDT [facility] CHLORIDE S/P/B 108 97 - 115 MMOL/L 03/25/2025 8:38 AM CDT [facility] CO2 25.7 21 - 32 MMOL/L 03/25/2025 8:38 AM CDT [facility] CALCIUM S/P/B 8.0(L) 8.5 - 10.1 MG/DL 03/25/2025 8:38 AM CDT [facility] ANION GAP 7.3 2 - 10 MMOL/L 03/25/2025 8:38 AM CDT [facility] BUN CREATININE RATIO 22.5 6 - 26 03/25/2025 8:38 AM CDT [facility] GFR ESTIMATE >90 >90 ML/MIN/1.7 3 M2 03/25/2025 8:38 AM CDT [facility] Comment: NOTE: eGFR is not calculated for patients <18 years of age or gender unknown. This is an estimated GFR calculation using the new CKD EPI creatinine equation without race and so does not require a correction factor for race. This estimated GFR should not be used for calculating drug doses. 03/25/2025 7:53 AM CDT Gifty Mayfield MD LABORATORY Final Result [facility] [address] [place] [address], [place] [phone] * CBC, AUTO, NO DIFF (03/25/2025 7:53 AM CDT) Only the most recent of2 resultswithin the time period is included. WBC 9.30 4.5 - 11.0 x10'3/uL 03/25/2025 8:30 AM CDT [facility] RBC 4.56 4.20 - 5.40 x10'6/uL 03/25/2025 8:30 AM CDT [facility] HGB 13.7 12.0 - 16.0 G/DL 03/25/2025 8:30 AM CDT [facility] HCT 42.2 38.0 - 48.0 % 03/25/2025 8:30 AM CDT [facility] MCV 92.5 81.0 - 99.0 FL 03/25/2025 8:30 AM CDT [facility] MCH 30.0 27.0 - 31.0 PG 03/25/2025 8:30 AM CDT [facility] MCHC 32.5 32.0 - 36.0 G/DL 03/25/2025 8:30 AM CDT [facility] RDW 13.6 11.5 - 14.5 % 03/25/2025 8:30 AM CDT [facility] PLT 308 130 - 400 x10'3/uL 03/25/2025 8:30 AM CDT [facility] MPV 11.1 9.3 - 12.2 FL 03/25/2025 8:30 AM CDT [facility] 03/25/2025 7:53 AM CDT Gifty Mayfield MD LABORATORY Final Result Performing Organization Address [facility] Co de Phone Number [facility] [address] [place] [address], [place] [phone] * POCT glucose (03/24/2025 10:54 AM CDT) Only the most recent of2 resultswithin the time period is included. [facility] GLUCOSE POC 79 70 - 99 mg/dL 03/24/2025 12:30 PM CDT [facility] 03/24/2025 10:5 4 AM CDT Darell Mahoney MD POCT ORDERABLES - DEVICE Fin al Result Performing Organization Address City/[facility] Co de Phone Number [facility] [address] [place] [address], [place] [phone] * USV CAROTID DUPLEX EDWARD (03/24/2025 9:10 AM CDT) Anatomical Region Laterality Modality Neck Vascular Ultraso und 03/24/2025 8:47 AM CDT Narrative 03/24/2025 11:09 AM CDT CAROTID ARTERY DUPLEX IMAGING VASCULAR LAB Pat.Name: LEIF BRANCH MA Pat.ID: [id number] .Date: 03/24/2025 Refer.MD: Salvador Ivy Exam Time: [...] VASCULAR LAB Pat.Name: LEIF BRANCH MARLEEN Pat.ID: [id number] .Date: 03/24/2025 Refer.MD: Salvador Ivy Exam Time: [...] AM Alyce Allred M.D. Emelia Soliman MD [facility] Final Re sult * USE ECHOCARDIOGRAM (03/24/2025 9:01 AM CDT) Anatomical Region Laterality Modality Cardiac Echocardiogram 03/24/2025 7:59 AM CDT Narrative 03/24/2025 12:31 PM CDT Echocardiography Report Pat.Name: LEIF BRANCH MARLEEN Pat.ID: [id number] St.Date: 03/24/2025 Refer.: [id number] PAXTON Delacruz EWDPROV EWDPROV Exam Time: 7:59:00 AM Study Type:ECHO WITH CARDIAC DOPPLER COMP Height: 60 in Weight: 129 lb BSA: 1.55 m2 Age: 2 1945,80Y Sex: F BP: 140/88 HR: 96 bpm Sonogrphr: Daphnie Correa [facility] Pat. Stat.:Inpatient Room: [facility] Reason for Study:Atrial fibrillation / flutter Procedures: [...] Composite heart 113 bpm Mitral Valve Decel [place] 800 cm/s2 HR 114 bpm Pulmonic Valve [...] Left Atrium LA VOLBP 70.4 ml [place] (Sys 6.12 cm Mace Disk Nu 9 [place] (Sys 7.11 cm Ratios IVS Ventricular Septum IVSd 1.38 cm Aorta AO Ds 3.31 cm Ascending Aorti 2.71 cm LV Area-Length Biplane LVEDV 62 ml LVESV 20.3 ml LV Area-Length Single Plane LVEDV 73.1 ml LVESV 22.3 ml LVEDV 52.8 ml LVESV 19 ml LVOT LVOTArea 3.2 cm2 Cardiovascular 2.02 cm Right Atrium [place] (Sys 4.87 cm Mace Disk Nu 9 HR 111 bpm RA Area-Length Single Plane Volume (Systole 11.5 ml/m2 RA Single Plane RA sys Area 10.1 cm2 Volume (Systole 18.3 ml Right Ventricle [place] (Pili 5.8 cm [place] (Pili 3.21 cm HR 91 bpm TA [...] Echocardiography Report Pat.Name: LEIF BRANCH MA Pat.ID: [id number] .Date: 03/24/2025 Refer.MD: [id number] PAXTON Delacruz EWDPROV EWDPROV Exam Time: 7:59:00 AM Study Type:ECHO WITH CARDIAC DOPPLER COMP Height: 60 in Weight: 129 lb BSA: 1.55 m2 Age: 2 1945,80Y Sex: F BP: 140/88 HR: 96 bpm Sonogrphr: Daphnie Correa Pat. Stat.:Inpatient Room: [facility] Reason for Study:Atrial fibrillation / flutter Procedures: [...] Composite heart 113 bpm Mitral Valve Decel [place] 800 cm/s2 HR 114 bpm Pulmonic Valve [...] Left Atrium LA VOLBP 70.4 ml [place] (Sys 6.12 cm Mace Disk Nu 9 [place] (Sys 7.11 cm Ratios IVS Ventricular Septum IVSd 1.38 cm Aorta AO Ds 3.31 cm Ascending Aorti 2.71 cm LV Area-Length Biplane LVEDV 62 ml LVESV 20.3 ml LV Area-Length Single Plane LVEDV 73.1 ml LVESV 22.3 ml LVEDV 52.8 ml LVESV 19 ml LVOT LVOTArea 3.2 cm2 Cardiovascular 2.02 cm Right Atrium [place] (Sys 4.87 cm Mace Disk Nu 9 HR 111 bpm RA Area-Length Single Plane Volume (Systole 11.5 ml/m2 RA Single Plane RA sys Area 10.1 cm2 Volume (Systole 18.3 ml Right Ventricle [place] (Pili 5.8 cm [place] (Pili 3.21 cm HR 91 bpm TA [...] of2 resultswithin the time period is included. HEPARIN ANTI XA UFH 0.78(H) 0.30 - 0.70 IU/ML 03/24/2025 8:34 AM CDT [facility] Comment: UFH Therapeutic Anti Xa Ranges: Medical Therapeutic Range: 0.30 - 0.70 IU/mL Cardiac Therapeutic Range: 0.30 - 0.50 IU/mL Neuro Therapeutic Range: 0.20 - 0.40 IU/mL 03/24/2025 7:05 AM CDT Kevin Maguire MD LABORATORY Final R esult [facility] [address] [place] [address], [place] [phone] * (ABNORMAL) LIPID PANEL (03/24/2025 7:05 AM CDT) CHOLESTEROL 200(H) <200 MG/DL 03/24/2025 7:47 AM CDT [facility] TRIGLYCERIDES 111 <150 MG/DL 03/24/2025 7:47 AM CDT [facility] HDL 57 >40.0 MG/DL 03/24/2025 7:47 AM CDT [facility] LDL (CALCULATED) 121(H) <100 MG/DL 03/24/2025 7:47 AM CDT [facility] NON HDL CHOLESTEROL 143(H) <130 MG/DL 03/24/2025 7:47 AM CDT [facility] CHOL/HDL RATIO 3.5 0.0 - 4.5 03/24/2025 7:47 AM CDT [facility] VLDL CALCULATION 22 5 - 55 MG/DL 03/24/2025 7:47 AM CDT [facility] LIPID INTERPRETATION 03/24/2025 7:47 AM CDT [facility] Comment: [facility] CONCENSUS REPORT RECOMMENDATIONS: ADULT CHILD LOW RISK: CHOLESTEROL <200 <170 TRIGLYCERIDE <150 --- HDL >=60 --- LDL <100 <110 BORDERLINE: CHOLESTEROL 200-239 170-199 TRIGLYCERIDE 150-199 --- HDL 40-59 --- LDL 100-159 110-129 HIGH RISK: CHOLESTEROL >=240 >=200 TRIGLYCERIDE >=200 --- HDL <40 --- LDL >=160 >=130 03/24/2025 7:05 AM CDT Gifty Mayfield MD LABORATORY Final Result [facility] [address] [place] [address], [place] [phone] * BONE DENSITY/DEXA (08/31/2023 2:51 PM CDT) [...] Recently Relevant to Health Maintenance Insurance MEDICARE [facility] Advance Directives * Full Code (Latest Code Status on File) Date Activated Date Inactivated Comments 03/23/2025 4:07 PM 03/25/2025 3:19 PM * Full Code Date Activated Date Inactivated Comments 03/22/2025 10:36 PM 03/23/2025 4:07 PM * Full Code Date Activated Date Inactivated Comments 01/14/2023 2:37 PM 01/14/2023 5:19 PM Care Teams Floor Attendant Relationship Specialty Start Date End Date Linda Rios FNP [address] [place] [address] PCP - General Nurse Practitioner Family 03/29/25 Emelia Soliman MD [address] [place] [address] Consulting Physician NEUROLOGY 03/23/25 03/23/26 Amber Bradley, RN Registered Nurse CARE MANAGEMENT 03/29/25 Ayah Hinson MD [address] [place] [address] Consulting Physician CARDIOVASCULAR DISEASE 04/07/25
[2025-06-23 09:56] LABS: Prothrombin Time 21.3 Seconds (9.64-11.0)
[2025-06-23 09:57] LABS: INR 2.1
== END 2025-06-23 09:30 | disposition home or self-care (01) ==
LOC: CHSLAB 09:30
PROVIDERS: PCP Nurse Practitioner Family; Visit Provider Nurse Practitioner Family
DX: I48.91 Unspecified atrial fibrillation (principal); Z79.01 Long term (current) use of anticoagulants
CPT/HCPCS: 36415; 85610

== ENCOUNTER 2025-07-21 09:24 | Outpatient (CLI) | payer MEDICARE, SELFPAY ==
--- OUTSIDE RECORDS SUMMARY | 2025-07-21 09:26 | XMS_ITS | Clinical Summary ---
Author Organization [facility] Address [facility] [place] [address] Care Team Providers Care Global Sourcing Manager Name Role Phone Emelia Soliman MD Unavailable [phone] Linda Rios Primary Care Provider [phone] Amber Bradley RN Unavailable Unavailable Ayah Hinson [...] 04/03/2025 A-fib ([facility]) 03/22/2025 Encounters Date Type Department Care Team Description 05/10/2025 10:04 AM CDT - 05/10/2025 11:59 PM CDT Hospital Encounter [facility] [address] [place] [address] Gifty Mayfield MD Peterson, Laura M, PT Weakness Discharge Disposition: Home or Self Care (Routine Discharge) 05/10/2025 Travel 05/08/2025 10:24 AM CDT - 05/08/2025 11:59 PM CDT Hospital Encounter [facility] [address] [place] [address] Linda Rios FNP Hankins, Nichole K, OT Discharge Disposition: Home or Self Care (Routine Discharge) 05/08/2025 Travel 05/04/2025 11:00 AM CDT - 05/04/2025 11:59 PM CDT [facility] [address] [place], [place] [id number] Linda Rios FNP Peterson, Laura M, PT Weakness Discharge Disposition: Home or Self Care (Routine Discharge) 05/04/2025 9:54 AM CDT - 05/04/2025 10:59 AM CDT [facility] [address] [place] [address] Linda Rios FNP Schmidt, Halley M, NG Discharge Disposition: Home or Self Care (Routine Discharge) 05/04/2025 Travel 05/02/2025 10:54 AM CDT - 05/02/2025 11:59 PM CDT Hospital [facility] [address] [place] [address] Linda Rios FNP Bodner, Katie A, WATCH AND CLOCK MAKER AND REPAIRER Generalized Weakness Discharge Disposition: Home or Self Care (Routine Discharge) 05/02/2025 9:50 AM CDT - 05/02/2025 10:53 AM CDT Hospital Encounter [facility] [address] [place] [address] Linda Rios FNP Schmidt, Halley M, NG Discharge Disposition: Home or Self Care (Routine Discharge) 05/02/2025 Travel 05/01/2025 7:40 AM CDT Office Visit [facility] Multispecialty Care - [facility] [address] [facility], [address] [place] [address] Emelia Soliman MD Establish Care (CVA) 05/01/2025 Travel 04/26/2025 Telephone [facility] [address] [place] [address] Ayah Hinson MD Medication Request 04/25/2025 10:44 AM CDT - 04/25/2025 11:59 PM CDT Hospital Encounter [facility] [address] [place] [address] Gifty Mayfield MD Bodner, Katie A, WATCH AND CLOCK MAKER AND REPAIRER Generalized Weakness Discharge Disposition: Home or Self Care (Routine Discharge) 04/25/2025 Travel 04/20/2025 10:53 AM CDT - 04/20/2025 11:59 PM CDT Hospital Encounter [facility] [address] [place] [address] Linda Rios FNP Hankins, Nichole K, OT Discharge Disposition: Home or Self Care (Routine Discharge) 04/20/2025 9:51 AM CDT - 04/20/2025 10:52 AM CDT Hospital Encounter [facility] [address] [place] [address] Gifty Mayfield MD Bodner, Katie A, NHI Generalized Weakness Discharge Disposition: Home or Self Care (Routine Discharge) 04/20/2025 Travel from Last 3 Months Family History Medical History Relation Comments Breast Cancer Sister in her 60's Relation Status Comments Sister Social History Tobacco Use Types Packs/Day Years Used Date Smoking Tobacco: Never Smokeless Tobacco: Never Tobacco Cessation:Counseling Given: No Alcohol Use Standard Drinks/Week Comments Not Currently 0 (1 standard drink = 0.6 oz pur e alcohol) [facility] Utilities Answer Date Recorded In the [...] any time in the past 12 m [facility], were you homeless or living in a longterm (including now)? 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 Sex Female 5:53 PM BIOLOGICAL TECHNICIAN Gender Identity Female 03/22/2025 10:30 PM CDT [...] st Contact Info) Description 10/30/2025 2:20 PM BIOLOGICAL TECHNICIAN Office Visit [facility] Medical Group Multispecialty Care - [address], [address] [place] [phone] Emelia Soliman MD [address] [place] [address] 11/01/2025 11:00 AM BIOLOGICAL TECHNICIAN Office Visit [facility] [place] [address] Ayah Hinson MD [address] [place] [phone] Health Maintenance Due Date Last Done Comments [...] Scan (General) Completed 08/31/2023, 06/19/2021 PHQ-2 (Physician [place]) Completed 05/01/2025 Meningococcal B Vaccine Aged Out No l onger eligible based on patient's age to complete this topic Meningococcal Vaccine Aged Out No lisa tanya eligible based on patient's age to complete this topic RSV Immunizations Under 20 Months Aged Out No longer eligible b ased on patient's age to complete this topic Medical Devices Implanted Type Area Advertising Operations Coordinator Device Identifier Shelf Expiration Date Model / Serial / Lot Iol Tecnis Simplicity Dcb00 - [id number] Implanted:Qty: 1 on 01/14/2023 by Geetha Ahmadi MD at [facility] Lens Right: Eye [employer] [id number] 11/05/2025 DCB00 / [id number] / [id number] Left Eye Implant Lens Implanted:Qty: 1 on 12/17/2022 by Geetha Ahmadi MD at [facility] Left: Eye 09/30/2025 DCB00 / / [id number] Procedures Procedure Name Priority Date/Time Associated [...] Shayne Keller MD, 09/05/2023 3:24 AM Salvador Ramírez MD DEXA Final Resul t from Last 3 Months or Most Recently Relevant to Health Maintenance Insurance MEDICARE [facility] Advance Directives * Full Code (Latest Code Status on File) Date Activated Date Inactivated Comments 03/23/2025 4:07 PM 03/25/2025 3:19 PM * Full Code Date Activated Date Inactivated Comments 03/22/2025 10:36 PM 03/23/2025 4:07 PM * Full Code Date Activated Date Inactivated Comments 01/14/2023 2:37 PM 01/14/2023 5:19 PM Care Teams Global Sourcing Manager Relationship Specialty Start Date End Date Linda Rios FNP [address] [place] [phone] PCP - General Nurse Practitioner Family 03/29/25 Emelia Soliman MD [address] [place] [address] Consulting Physician NEUROLOGY 03/23/25 03/23/26 Amber Bradley, RN Registered Nurse CARE MANAGEMENT 03/29/25 Ayah Hinson MD [address] [place] [address] Consulting Physician CARDIOVASCULAR DISEASE 04/07/25
[2025-07-21 09:49] LABS: INR 2.3; Prothrombin Time 23.2 Seconds (9.50-12.1)
== END 2025-07-21 09:25 | disposition home or self-care (01) ==
LOC: CHSLAB 09:24
PROVIDERS: PCP Nurse Practitioner Family; Visit Provider Nurse Practitioner Family
DX: I48.91 Unspecified atrial fibrillation (principal); Z79.01 Long term (current) use of anticoagulants
CPT/HCPCS: 36415; 85610

== ENCOUNTER 2025-08-28 12:55 | Outpatient (CLI) | payer MEDICARE, SELFPAY ==
--- OUTSIDE RECORDS SUMMARY | 2025-08-28 13:03 | XMS_ITS | Clinical Summary ---
Author Organization [facility] Address [facility] [place] [address] Care Team Providers Care Wallcovering Texturer Name Role Phone Emelia Soliman MD Unavailable [phone] Linda Rios Primary Care Provider [phone] Amber Bradley RN Unavailable Unavailable Ayah Hinson [...] Generalized weakness 04/03/2025 Abnormal gait 04/03/2025 A-fib ([facility]) 03/22/2025 Family History Medical History Relation Comments Breast Cancer Sister in her 60's Relation Status Comments Sister Social History Tobacco Use Types Packs/Day Years Used Date Smoking Tobacco: Never Smokeless Tobacco: Never Tobacco Cessation:Counseling Given: No Alcohol Use Standard Drinks/Week Comments Not Currently 0 (1 standard drink = 0.6 oz pur e alcohol) [facility] Utilities Answer Date Recorded In the past 12 months has th e [employer], gas, oil, or water [employer] threatened to shut off services in your [...] in the past 12 m [facility], were you homeless or living in a penitentiary (including now)? 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 Sex Female 5:53 PM COMBAT SYSTEMS OPERATOR [employer] Gender Identity Female 03/22/2025 10:30 PM CDT [...] Team (Late st Contact Info) Description 10/30/2025 8:40 AM COMBAT SYSTEMS OPERATOR [employer] Office Visit [facility] Medical Group Multispecialty Care - [address], [address] [place] [phone] Emelia Soliman MD [address] [place] [address] 11/01/2025 11:00 AM COMBAT SYSTEMS OPERATOR [employer] Office Visit [facility] [place] [address] Ayah Hinson MD [address] [place] [address] Health Maintenance Due Date Last Done Comments Hepatitis C 1963 DTaP, Tdap and Td Vaccines ( 1 - Tdap) 1966 Zoster Vaccines (1 of 2) 1997 Annual Medicare Wellness Visit 2012 RSV Immunization or 60+ Years (1 - 1-dose 75+ series) 2022 COVID-19 Vaccine ( - 2024-2 6 season) 2025 09/26/2021, 03/11/2021, 02/10/2021 Pneumococcal Vaccine: 50+ Years Completed 12/16/2021, 11/26/2020 Dexa Scan (General) Completed 08/31/2023, 06/19/2021 PHQ-2 (Physician [place]) Completed 05/01/2025 Meningococcal B Vaccine Aged Out No l onger eligible based on patient's age to complete this topic Meningococcal Vaccine Aged Out No lisa tanya eligible based on patient's age to complete this topic RSV Immunizations Under 20 Months Aged Out No longer eligible b ased on patient's age to complete this topic Medical Devices Implanted Type Area Chief Recordist Device Identifier Shelf Expiration Date Model / Serial / Lot Iol Tecnis Simplicity Dcb00 - [id number] Implanted:Qty: 1 on 01/14/2023 by Geetha Ahmadi MD at [facility] Lens Right: Eye [employer] [id number] 11/05/2025 DCB00 / [id number] / [id number] Left Eye Implant Lens Implanted:Qty: 1 on 12/17/2022 by Geetha Ahmadi MD at [facility] Left: Eye 09/30/2025 DCB00 / / [id number] Procedures Procedure Name Priority Date/Time Associated [...] Recently Relevant to Health Maintenance Insurance MEDICARE [facility] Advance Directives * Full Code (Latest Code Status on File) Date Activated Date Inactivated Comments 03/23/2025 4:07 PM 03/25/2025 3:19 PM * Full Code Date Activated Date Inactivated Comments 03/22/2025 10:36 PM 03/23/2025 4:07 PM * Full Code Date Activated Date Inactivated Comments 01/14/2023 2:37 PM 01/14/2023 5:19 PM Care Teams Wallcovering Texturer Relationship Specialty Start Date End Date Linda Rios FNP [address] [place] [phone] PCP - General Nurse Practitioner Family 03/29/25 Emelia Soliman MD [address] [place] [address] Consulting Physician NEUROLOGY 03/23/25 03/23/26 Amber Bradley, RN Registered Nurse CARE MANAGEMENT 03/29/25 Ayah Hinson MD [address] [place] [address] Consulting Physician CARDIOVASCULAR DISEASE 04/07/25
[2025-08-28 13:20] LABS: INR 1.6; Prothrombin Time 16.7 Seconds (9.50-12.1)
== END 2025-08-28 12:56 | disposition home or self-care (01) ==
LOC: CHSLAB 12:56
PROVIDERS: PCP Family Medicine; Visit Provider Nurse Practitioner Family
DX: I48.91 Unspecified atrial fibrillation (principal); Z79.01 Long term (current) use of anticoagulants
CPT/HCPCS: 36415; 85610

== ENCOUNTER 2025-10-09 09:34 | Outpatient (CLI) | payer MEDICARE, SELFPAY ==
[2025-10-09 09:48] LABS: Hematocrit 43.1 % (35.0-42.0); Hemoglobin 13.8 g/dL (11.7-13.8); Immature Granulocyte Percent A 0.3 % (0.0-0.0); Lymphocytes Absolute Auto 2.34 K/mm3 (1.10-4.50); Mean Corpuscular HGB Conc 32.0 g/dL (32-36); Mean Corpuscular Hemoglobin 30.6 pg (27.0-31.0); Mean Corpuscular Volume 95.6 fL (78.0-102.0); Nucleated Red Blood Cells Absolute Auto 0.00 K/mm3 (0.00-0.00); Nucleated Red Blood Cells Perc 0.0 % (0-0.0); Platelet Count Result 261 K/mm3 (150-420); Red Blood Count 4.51 M/mm3 (4.20-5.40); White Blood Count 8.6 K/mm3 (4.8-10.8)
[2025-10-09 10:30] LABS: Alanine Aminotransferase 74 U/L (6-35); Albumin Level 4.3 g/dL (3.5-5.1); Alkaline Phosphatase 139 U/L (38-126); Anion Gap 6 mmol/L (4-12); Aspartate Amino Transferase 58 U/L (14-36); Bilirubin,Total 1.5 mg/dL (0.2-1.3); Blood Urea Nitrogen 23 mg/dL (7-17); Calcium 9.4 mg/dL (8.4-10.2); Carbon Dioxide 28 mmol/L (22-30); Chloride 109 mmol/L (98-107); Cholesterol 155 mg/dL (0-200); Estimated Glomerular Filt Rate > 60; Glucose 92 mg/dL (65-110); HDL Direct 73 mg/dL; Osmolality Calculated 299 mOsm/kg (285-295); Potassium 4.6 mmol/L (3.4-5.0); Sodium 143 mmol/L (137-145); Total Protein 7.0 g/dL (6.3-8.2); Triglycerides 117 mg/dL (<150)
[2025-10-12 08:20] LABS: Hepatitis B Surface Antigen Negative (Negative)
[2025-10-12 08:26] LABS: HAV RESULT Negative (Negative); Hepatitis B Core IgM Result Negative (Negative)
== END 2025-10-09 09:35 | disposition home or self-care (01) ==
LOC: CHSLAB 09:35
PROVIDERS: PCP Family Medicine; Visit Provider Family Medicine
DX: Z79.01 Long term (current) use of anticoagulants (principal); I10 Essential (primary) hypertension; I48.91 Unspecified atrial fibrillation; R74.01 Elevation of levels of liver transaminase levels
CPT/HCPCS: 36415; 80053; 80061; 80074; 85025

== ENCOUNTER 2025-10-13 07:46 | Outpatient (CLI) | payer MEDICARE, SELFPAY ==
--- NOTE | ~2025-10-13 | US_ITS ---
ULTRASOUND ABDOMEN LIMITED (RIGHT UPPER QUADRANT) Clinical History: R74.01 - Elevation of levels of liver transaminase levels Comparison: None Technique: Right upper quadrant sonography Findings: Liver: Nodular surface. Normal size. Normal echotexture. No intrahepatic biliary ductal dilatation. Normal hepatopedal flow main portal vein. Common Duct: Normal caliber. 4 mm. Gallbladder: Stones. No wall thickening. No pericholecystic fluid. Pancreas: Mostly obscured by bowel gas. IMPRESSION: 1. 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 2. Gallstones. Reviewed, dictated and finalized at location R. UNT EXECUTIVE AGRIBUSINESS
--- OUTSIDE RECORDS SUMMARY | 2025-10-13 07:49 | XMS_ITS | Clinical Summary ---
Author Organization [facility] Address [facility] [place] [address] Care Team Providers Care Sterile Tech Name Role Phone Emelia Soliman MD Unavailable Linda Rios Primary Care Provider [phone] Amber Bradley RN Unavailable Unavailable Ayah Hinson [...] Generalized weakness 04/03/2025 Abnormal gait 04/03/2025 A-fib 03/22/2025 Family History Medical History Relation Comments Breast Cancer Sister in her 60's Relation Status Comments Sister Social History Tobacco Use Types Packs/Day Years Used Date Smoking Tobacco: Never Smokeless Tobacco: Never Tobacco Cessation:Counseling Given: No Alcohol Use Standard Drinks/Week Comments Not Currently 0 (1 standard drink = 0.6 oz pur e alcohol) [facility] Utilities Answer Date Recorded In the past 12 months has th e [employer], [employer], oil, or water [employer] Se[employer] threatened to shut off services in your [...] any time in the past 12 m [facility], were you homeless or living in a prison (including now)? 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 Sex Female 5:53 PM FELT STRIP FINISHER Gender Identity Female 03/22/2025 10:30 PM [...] st Contact Info) Description 10/30/2025 8:40 AM FELT STRIP FINISHER Office Visit [facility] Medical [facility] Multispecialty Care - [facility] [address] [facility], [address] [place] [phone] Emelia Soliman MD [address] [place] [address] 11/01/2025 11:00 AM FELT STRIP FINISHER Office Visit [facility] [address] [place] [phone] Ayah Hinson MD [address] [place] [address] Health Maintenance Due Date Last Done Comments Hepatitis C 1965 DTaP, Tdap and Td Vaccines (1 - Tdap) 1966 Zoster Vaccines (1 of 2) 1997 Annual Medicare Wellness Visit 2012 RSV Immunization or 60+ Years (1 - 1-dose 75+ series) 2022 COVID-19 Vaccine ( season) 2025 09/26/2021, 03/11/2021, 02/10/2021 Influenza Adult (#1) 2025 09/06/2021, 09/17/2020, 09/23/2018, Additional history exists Pneumococcal Vaccine: 50+ Years Completed 12/16/2021, 11/26/2020 Dexa Scan (General) Completed 08/31/2023, 1 PHQ-2 (Physician [place]) Completed 05/01/2025 Hepatitis A Vaccines Aged Out No long er eligible based on patient's age to complete this topic Meningococcal B Vaccine Aged Out No l onger eligible based on patient's age to complete this topic Meningococcal Vaccine Aged Out No lisa tanya eligible based on patient's age to complete this topic RSV Immunizations Under 20 Months Aged Out No longer eligible based on patient's age to complete this topic Medical Devices Implanted Type Area Contract Writer Device Identifier Shelf Expiration Date Model / Serial / Lot Iol Tecalberto Simplicity Dcb00 - [id number] Implanted:Qty: 1 on 01/14/2023 by Geetha Ahmadi MD at [facility] Lens Right: Eye [employer] [id number] 11/05/2025 DCB00 / [id number] / [id number] Left Eye Implant Lens Implanted:Qty: 1 on 12/17/2022 by Geetha Ahmadi MD at [facility] Left: Eye 09/30/2025 DCB00 / / [id number] Procedures Procedure Name Priority Date/Time Associated [...] bone mineral density test. [facility] routine testing is allowed once every 2 [...] Most Recently Relevant to Health Maintenance Insurance * Guarantor: Nkechi Negron Ma Account Type Relation to Patient Date of Phone Billing Address Personal/Family Self 1945 [facility] [place] [address] MEDICARE [facility] Advance Directives * Full Code (Latest Code Status on File) Date Activated Date Inactivated Comments 03/23/2025 4:07 PM 03/25/2025 3:19 PM * Full Code Date Activated Date Inactivated Comments 03/22/2025 10:36 PM 03/23/2025 4:07 PM * Full Code Date Activated Date Inactivated Comments 01/14/2023 2:37 PM 01/14/2023 5:19 PM Care Teams Sterile Tech Relationship Specialty Start Date End Date Linda Rios FNP [address] [place] [phone] PCP - General Nurse Practitioner Family 03/29/25 Emelia Soliman MD [address] [place], [place] [phone] Consulting Physician NEUROLOGY 03/23/25 03/23/26 Amber Bradley, RN Registered Nurse CARE MANAGEMENT 03/29/25 Ayah Hinson MD [address] [place], [place] [address] Consulting Physician CARDIOVASCULAR DISEASE 04/07/25
== END 2025-10-13 07:47 | disposition home or self-care (01) ==
LOC: CHSIMG 07:47
PROVIDERS: PCP Family Medicine; Visit Provider Family Medicine
DX: R74.01 Elevation of levels of liver transaminase levels (principal); K80.20 Calculus of gallbladder without cholecystitis without obstruction
CPT/HCPCS: 76705

== ENCOUNTER 2025-10-17 14:23 | Outpatient (CLI) | payer MEDICARE, SELFPAY ==
[2025-10-17 15:07] LABS: INR 3.0; Prothrombin Time 29.6 Seconds (9.50-12.1)
== END 2025-10-17 14:24 | disposition home or self-care (01) ==
PROVIDERS: PCP Family Medicine; Visit Provider Family Medicine
DX: I48.91 Unspecified atrial fibrillation (principal); Z79.01 Long term (current) use of anticoagulants
CPT/HCPCS: 36415; 85610

== ENCOUNTER 2025-11-06 10:03 | Outpatient (CLI) | payer MEDICARE, SELFPAY ==
[2025-11-06 10:26] LABS: INR 3.7; Prothrombin Time 36.1 Seconds (9.50-12.1)
== END 2025-11-06 10:04 | disposition home or self-care (01) ==
PROVIDERS: PCP Family Medicine; Visit Provider Nurse Practitioner Family
DX: I48.91 Unspecified atrial fibrillation (principal); Z79.01 Long term (current) use of anticoagulants
CPT/HCPCS: 36415; 85610

== ENCOUNTER 2025-11-14 09:46 | Outpatient (CLI) | payer MEDICARE, SELFPAY ==
[2025-11-14 10:11] LABS: INR 2.8; Prothrombin Time 27.9 Seconds (9.50-12.1)
--- OUTSIDE RECORDS SUMMARY | 2025-11-14 11:07 | XMS_ITS | Clinical Summary ---
Author Organization [facility] Address [address] [place] [address] Care Team Providers Care Rn Wound Care Name Role Phone Emelia Soliman MD Unavailable [phone] Linda Rios Primary Care Provider Amber Bradley RN Unavailable Unavailable Ariana Flores MD Unavailable Allergies Active Allergy Reactions Criticality Noted Date Comments Penicillins Hives 12/17/2022 Medications multi vitamin/minerals (THERA-M ENHANCED) tablet Take 1 tablet by mouth daily. Active atorvastatin (LIPITOR) 80 MG tabletIndication s:Cerebrovascula r accident (CVA), unspecified mechanism (CMS/HCC HHS/HCC) Take 1 tablet (80 mg total) by mouth nightly at bedtime. 30 tablet 5 Active nitroglycerin (NITROSTAT) 0.[address] 1 tablet (0.4 mg total) under the tongue every 5 (five) minutes as needed for Chest Pain. 30 tablet 5 Active metoprolol succinate ER (TOPROL-XL) 50 MG 24 hr tablet Take 1 tablet (50 mg total) by mouth 2 (two) times daily. 5 Active metoprolol succinate ER (TOPROL-XL) 100 MG 24 hr tablet Take 1 tablet (100 mg total) by mouth 2 (two) times daily. 5 Active warfarin (COUMADIN) 2 MG tablet Take 1.5 tablets (3 mg total) by mouth daily. 5 Active warfarin (COUMADIN) 4 MG tablet Take 1 tablet (4 mg total) by mouth daily. 5 Active amiodarone (PACERONE) 200 MG tablet Amiodarone 200 mg twice daily for 21 days followed by 200 mg daily 60 tablet 11 5 Active Active Problems Problem Noted Date Diagnosed Date Generalized weakness 04/03/2025 Abnormal gait 04/03/2025 A-fib 03/22/2025 Encounters Date Type Department Care Team Description 11/02/2025 Telephone [facility] [address] [place] [address] Ariana Flores MD Information 11/01/2025 11:00 AM RETORT PRESS OPERATOR Office Visit [facility] [address] [place] [address] Ariana Flores MD Follow Up; Atrial Fibrillation 11/01/2025 10:15 AM RETORT PRESS OPERATOR - 11/01/2025 11:59 PM RETORT PRESS OPERATOR Hospital Encounter [facility] [address] [facility] [place] [address] Ariana Flores MD Discharge Disposition: Home or Self Care (Routine Discharge) 11/01/2025 Travel 11/01/2025 Orders Only [facility] [address] [place] [address] Ariana Flores MD from Last 3 Months Family History Medical History Relation Comments Breast Cancer Sister in her 60's Relation Status Comments Sister Social History Tobacco Use Types Packs/Day Years Used Date Smoking Tobacco: Never Smokeless Tobacco: Never Tobacco Cessation:Counseling Given: No Alcohol Use Standard Drinks/Week Comments Not Currently 0 (1 standard drink = 0.6 oz pur e alcohol) [facility] Utilities Answer Date Recorded In the past 12 months has e [employer], gas, oil, or water [employer] threatened to shut off services in your [...] any time in the past 12 m [facility], were you homeless or living in a alf (including now)? 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 Sex Female 5:53 PM RETORT PRESS OPERATOR Gender Identity Female 03/22/2025 10:30 PM CDT Sexual Orientation Straight 03/22/2025 10 :30 PM CDT Last Filed Vital Signs Vital Sign Reading Time Taken Comments Blood Pressure 157/88 11/01/2025 10:44 AM RETORT PRESS OPERATOR Pulse 90 11/01/2025 10:44 AM RETORT PRESS OPERATOR Temperature 36.5 C (97.7 F) 03/25/2025 7:27 AM CDT Respiratory Rate 12 11/01/2025 10:44 AM RETORT PRESS OPERATOR Oxygen Saturation 96% 11/01/2025 10:44 AM RETORT PRESS OPERATOR Inhaled Oxygen Concentration - - Weight 56.7 kg (125 lb) 11/01/2025 10:44 AM RETORT PRESS OPERATOR Height 152.4 cm (5') 11/01/2025 10:44 AM RETORT PRESS OPERATOR Body Mass Index 24.41 11/01/2025 10:44 AM RETORT PRESS OPERATOR Plan of Treatment Upcoming Encounters Date Type Department Care Team (Late st Contact Info) Description 12/29/2025 7:30 AM RETORT PRESS OPERATOR Appointment [facility] Non Invasive Cardiology - [address] [address] Arinaa Flores MD [address] [place], [place] [phone] 01/17/2026 11:30 AM RETORT PRESS OPERATOR [facility] [place] [address] Ariana Flores MD [address] [place] [address] Health Maintenance Due Date Last Done Comments Hepatitis C 1965 DTaP, Tdap and Td Vaccines (1 - Tdap) 1966 Zoster Vaccines (1 of 2) 1997 Annual Medicare Wellness Visit 2012 RSV Immunization or 60+ Years (1 - 1-dose 75+ series) 2022 COVID-19 Vaccine ( - season) 2025 09/26/2021, 03/11/2021, 02/10/2021 Influenza Adult (#1) 2025 09/06/2021, 09/17/2020, 09/23/2018, Additional history exists Pneumococcal Vaccine: 50+ Years Completed 12/16/2021, 11/26/2020 Dexa Scan (General) Completed 08/31/2023, PHQ-2 (Physician [place]) Completed 05/01/2025 Hepatitis A Vaccines Aged Out [...] this topic Medical Devices Implanted Type Area Glove Cutter Device Identifier Shelf Expiration Date Model / Serial / Lot Iol Tecalberto Simplicity Dcb00 - [id number] Implanted:Qty: 1 on 01/14/2023 by Geetha Ahmadi MD at [facility] Lens Right: Eye [employer] [id number] 11/05/2025 DCB00 / [id number] / [id number] Left Eye Implant Lens Implanted:Qty: 1 on 12/17/2022 by Geetha Ahmadi MD at [facility] Left: Eye 09/30/2025 DCB00 / / [id number] Procedures Procedure Name Priority Date/Time Associated Diagnosis Comments ECG 12-LEAD Routine 11/01/2025 10:32 AM RETORT PRESS OPERATOR Essential (primary) hypertension BONE DENSITY/DEXA Routine 08/31/2023 2:5 1 PM CDT Post-menopausal from Last 3 Months or Most Recently Relevant to Health Maintenance Results * ECG 12 lead (11/01/2025 10:32 AM RETORT PRESS OPERATOR) ECG QT 356 [facility] ECG QTC 457 [facility] 11/01/2025 10:3 2 AM RETORT PRESS OPERATOR Narrative [facility] - 11/02/2025 5:52 AM RETORT PRESS OPERATOR [address] [place] [address] Test Date: 2025-11-01 Pat Name: LEIF NEGRON Department: 3 Room: Gender: Female Mix Mill Tender: CANDICE : 1945 Requested By: ARIANA FLORES Order Number: [id number] Reading MD: Ariana Flores Measurements Intervals Freedom Rate: 99 P: 0 NE: 0 QRS: 76 QRSD: 90 T: 22 QT: 356 QTc: 457 Interpretive Statements ATRIAL FIBRILLATION POSSIBLE RIGHT VENTRICULAR CONDUCTION DELAY [RSR (QR) IN V1/V2] ABNORMAL RHYTHM ECG RT PRESS OPERATOR Procedure Note Ariana Flores MD - 11/02/[address] [place] [address] Test Date: 2025-11-01 Pat Name: LEIF NEGRON Department: 3 Room: Gender: Female Mix Mill Tender: CANDICE : 1945 Requested By: ARIANA FLORES Order Number: [id number] Reading MD: Ariana Flores Measurements Intervals Freedom Rate: 99 P: 0 NE: 0 QRS: 76 QRSD: 90 T: 22 QT: 356 QTc: 457 Interpretive Statements ATRIAL FIBRILLATION POSSIBLE RIGHT VENTRICULAR CONDUCTION DELAY [RSR (QR) IN V1/V2] ABNORMAL RHYTHM ECG RT PRESS OPERATOR us Ariana Flores MD ECG ORDERABLES Final Result [facility] * BONE DENSITY/DEXA (08/31/2023 2:51 PM CDT) [...] Recently Relevant to Health Maintenance Insurance MEDICARE [employer] Advance Directives * Full Code (Latest Code Status on File) Date Activated Date Inactivated Comments 03/23/2025 4:07 PM 03/25/2025 3:19 PM * Full Code Date Activated Date Inactivated Comments 03/22/2025 10:36 PM 03/23/2025 4:07 PM * Full Code Date Activated Date Inactivated Comments 01/14/2023 2:37 PM 01/14/2023 5:19 PM Care Teams Rn Wound Care Relationship Specialty Start Date End Date Linda Rios FNP [address] [place] [phone] PCP - General Nurse Practitioner Family 03/29/25 Emelia Soliman MD [address] [place] [address] Consulting Physician NEUROLOGY 03/23/25 03/23/26 Amber Bradley, RN Registered Nurse CARE MANAGEMENT 03/29/25 Ariana Flores MD [address] [place] [address] Consulting Physician CARDIOVASCULAR DISEASE 04/07/25
== END 2025-11-14 09:47 | disposition home or self-care (01) ==
LOC: CHSLAB 09:48
PROVIDERS: PCP Family Medicine; Visit Provider Nurse Practitioner Family
DX: I48.91 Unspecified atrial fibrillation (principal)
CPT/HCPCS: 36415; 85610

== ENCOUNTER 2025-11-28 12:15 | Outpatient (CLI) | payer MEDICARE, SELFPAY ==
--- NOTE | ~2025-11-28 | XR_ITS ---
XR chest 2V 11/28/2025 12:35 Indication: Pneumonia Procedure: PA and lateral views the chest Comparison: 03/22/2025 Findings: There is bilateral airspace disease most confluent in the lung bases. Small pleural effusions. No pneumothorax. No acute osseous abnormality. Impression: 1: Bilateral airspace disease predominantly affecting the lung bases. Differential diagnosis includes edema and pneumonia. 2: Small pleural effusions. Reviewed, dictated and finalized at location O. TIONS MANAGER Impression: 1: Bilateral airspace disease predominantly affecting the lung bases. Different ial diagnosis includes edema and pneumonia. 2: Small pleural effusions.
--- OUTSIDE RECORDS SUMMARY | 2025-11-28 12:40 | XMS_ITS | Clinical Summary ---
Author Organization [facility] Address [address] [place] [address] Care Team Providers Care High Density Finishing Operator Name Role Phone Emelia Soliman MD Unavailable [phone] Linda Rios Primary Care Provider [phone] Amber Bradley RN Unavailable Unavailable Ariana Flores [...] Type Department Care Team Description 11/02/2025 Telephone [facility] [address] [place] [address] Ariana Flores MD Information 11/01/2025 11:00 AM FINANCIAL SECRETARY Office Visit [facility] [address] [place] [address] Ariana Flores MD Follow Up; Atrial Fibrillation 11/01/2025 10:15 AM FINANCIAL SECRETARY - 11/01/2025 11:59 PM FINANCIAL SECRETARY Hospital Encounter [facility] [address] [facility] [place] [address] Ariana Flores MD Discharge Disposition: Home or Self Care (Routine Discharge) 11/01/2025 Travel 11/01/2025 Orders Only [facility] [address] [place] [address] Ariana Flores MD from Last 3 Months Family History Medical History Relation Comments Breast Cancer Sister in her 60's Relation Status Comments Sister Social History Tobacco Use Types Packs/Day Years Used Date Smoking Tobacco: Never Smokeless Tobacco: Never Tobacco Cessation:Counseling Given: No Alcohol Use Standard Drinks/Week Comments Not Currently 0 (1 standard drink = 0.6 oz pur e alcohol) [facility] Utilities Answer Date Recorded In the past 12 months has e [employer], gas, oil, or water [employer] threatened to shut off services in your [...] any time in the past 12 m [facility], were you homeless or living in a skilled nursing (including now)? 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 Sex Female 5:53 PM FINANCIAL SECRETARY Gender Identity Female 03/22/2025 10:30 PM CDT Sexual Orientation Straight 03/22/2025 10 :30 PM CDT Last Filed Vital Signs Vital Sign Reading Time Taken Comments Blood Pressure 157/88 11/01/2025 10:44 AM FINANCIAL SECRETARY Pulse 90 11/01/2025 10:44 AM FINANCIAL SECRETARY Temperature 36.5 C (97.7 F) 03/25/2025 7:27 AM CDT Respiratory Rate 12 11/01/2025 10:44 AM FINANCIAL SECRETARY Oxygen Saturation 96% 11/01/2025 10:44 AM FINANCIAL SECRETARY Inhaled Oxygen Concentration - - Weight 56.7 kg (125 lb) 11/01/2025 10:44 AM FINANCIAL SECRETARY Height 152.4 cm (5') 11/01/2025 10:44 AM FINANCIAL SECRETARY Body Mass Index 24.41 11/01/2025 10:44 AM FINANCIAL SECRETARY Plan of Treatment Upcoming Encounters Date Type Department Care Team (Late st Contact Info) Description 12/29/2025 7:30 AM FINANCIAL SECRETARY Appointment [facility] Non Invasive Cardiology - [address] [address] Ariana Flores MD [address] [place], [place] [address] 01/17/2026 11:30 AM FINANCIAL SECRETARY Office Visit [facility] [place] [address] Ariana Flores MD [address] [place] [address] Health Maintenance Due Date Last [...] Dexa Scan (General) Completed 08/31/2023, PHQ-2 (Physician [place]) Completed 05/01/2025 Hepatitis A Vaccines Aged Out [...] this topic Medical Devices Implanted Type Area Process Lead Device Identifier Shelf Expiration Date Model / Serial / Lot Iol Tecalberto Simplicity Dcb00 - [id number] Implanted:Qty: 1 on 01/14/2023 by Geetha Ahmadi MD at [facility] Lens Right: Eye [employer] [id number] 11/05/2025 DCB00 / [id number] / [id number] Left Eye Implant Lens Implanted:Qty: 1 on 12/17/2022 by Geetha Ahmadi MD at [facility] Left: Eye 09/30/2025 DCB00 / / [id number] Procedures Procedure Name Priority Date/Time Associated Diagnosis Comments ECG 12-LEAD Routine 11/01/2025 10:32 AM FINANCIAL SECRETARY Essential (primary) hypertension BONE DENSITY/DEXA Routine 08/31/2023 2:5 1 PM CDT Post-menopausal from Last 3 Months or Most Recently Relevant to Health Maintenance Results * ECG 12 lead (11/01/2025 10:32 AM FINANCIAL SECRETARY) ECG QT 356 [facility] ECG QTC 457 [facility] 11/01/2025 10:3 2 AM FINANCIAL SECRETARY Narrative [facility] - 11/02/2025 5:52 AM FINANCIAL SECRETARY [address] 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 [address] Test Date: 2025-11-01 Pat Name: LEIF NEGRON Department: 3 Room: Gender: Female Molten Iron Pourer: CANDICE : 1945 Requested By: ARIANA FLORES Order Number: [id number] Reading MD: Ariana Flores Measurements Intervals [place] Rate: 99 P: 0 MD: 0 QRS: 76 QRSD: 90 T: 22 QT: 356 QTc: 457 Interpretive Statements ATRIAL FIBRILLATION POSSIBLE RIGHT VENTRICULAR CONDUCTION DELAY [RSR (QR) IN V1/V2] ABNORMAL RHYTHM ECG NCIAL SECRETARY us Ariana Flores MD ECG ORDERABLES Final Result [facility] * BONE DENSITY/DEXA (08/31/2023 2:51 [...] 2:37 PM 01/14/2023 5:19 PM Care Teams High Density Finishing Operator Relationship Specialty Start Date End Date Linda Rios FNP [address] [place] [address] PCP - General Nurse Practitioner Family 03/29/25 Emelia Soliman MD [address] [place] [address] Consulting Physician NEUROLOGY 03/23/25 03/23/26 Amber Bradley, RN Registered Nurse CARE MANAGEMENT 03/29/25 Ariana Flores MD [address] [place] [address] Consulting Physician CARDIOVASCULAR DISEASE 04/07/25
== END 2025-11-28 12:16 | disposition home or self-care (01) ==
PROVIDERS: PCP Family Medicine; Visit Provider Family Medicine
DX: J18.9 Pneumonia, unspecified organism (principal); R91.8 Other nonspecific abnormal finding of lung field; J90 Pleural effusion, not elsewhere classified
CPT/HCPCS: 71046